=== PATIENT | female | born 1970 | race African-American/Black ===

== ENCOUNTER 2016-05-22 13:46 | Inpatient (IN) | payer MEDICARE, OTHER ==
[~2016-05-22] VITALS: Ht 152.4 cm; Wt 76.0 kg
[~2016-05-22 13:46] MED LIST: CARI350T21 PO; FERR324T11 PO; HYDR-2601 PO; LORA2TAB10 PO; MIRT30TA3 PO; OXCA300T50 PO; QUET50TA PO; TIZA4TAB3 PO
[2016-05-22 14:52] LABS: Basophils # (auto) 0.1 uL; Basophils % (auto) 0.8 % (0.0-2.0); Eosinophils # (auto) 0.2 uL; Eosinophils % (auto) 2.7 % (0.0-7.0); Hematocrit 39.3 % (36.0-46.0); Hemoglobin 12.9 g/dL (12.2-16.2); Lymphocytes # (auto) 3.3 uL; Lymphocytes % (auto) 46.7 % (10.0-50.0); Mean Corpuscular Hemoglobin 31.1 pg (28.0-32.0); Mean Corpuscular Hgb Conc. 32.9 g/dL (32.0-36.0); Mean Corpuscular Volume 94.5 fL (80.0-100.0); Mean Platelet Volume 7.8 fL (7.4-10.4); Monocytes # (auto) 0.6 uL; Monocytes % (auto) 9.1 % (0.0-12.0); Neutrophils # (auto) 2.9 uL; Neutrophils % (auto) 40.7 % (37.0-80.0); Platelet Count (auto) 400 10^3/uL (140-450); Red Cell Distribution Width 13.2 % (11.6-16.0)
[2016-05-22 15:16] LABS: Albumin 3.8 g/dL (3.4-5.0); BUN/Creatinine Ratio 13.7; Bilirubin, Total 0.3 mg/dL (0.2-1.0); Calcium 9.5 mg/dL (8.5-10.1); Total Protein 8.6 g/dL (6.4-8.2)
[2016-05-22 16:25] LABS: Amylase 52 U/L (25-115)
[2016-05-22 18:18] LABS: Urine Bilirubin Negative (Negative); Urine Blood Negative /uL (Negative); Urine Color Yellow (Yellow); Urine Glucose Normal (Normal); Urine Ketone Negative (Negative); Urine Nitrite Negative (Negative); Urine RBC <1 /hpf (0 - 4); Urine Squamous Epithelial Cell FEW /hpf (<5); Urine Urobilinogen Normal (Negative); Urine pH 6.5 (5.0-8.0)
[2016-05-22] MEDS ORDERED: SODIUM CHLORIDE 0.9% 1,000 ML IVB ONE (18:19)
[2016-05-22] MEDS ORDERED: ONDANSETRON HCL 4 MG/2 ML VIAL IV ONE (18:30)
[2016-05-22] MEDS ORDERED: HYDROmorphone HCL 2 MG/ML VL IV ONE (18:45)
[2016-05-22 19:26] LABS: Partial Thromboplastin Time 27.8 sec (22.64-33.71); Prothrombin Time 12.1 sec (9.37-12.3)
[2016-05-22 19:28] LABS: INR 1.17 (0.9-1.15)
[2016-05-22] MEDS ORDERED: metroNIDAZOLE 500MG/100ML 100 ML IV ONE (20:30)
[2016-05-22] MEDS ORDERED: cefTRIAXone 1GM/50ML D5W 50 ML IV ONE (20:30)
[2016-05-22] MEDS: ONDANSETRON HCL 4 MG/2 ML VIAL IV PRN (21:53)
[2016-05-22] MEDS: HYDROmorphone HCL 2 MG/ML VL IV PRN (21:53)
[2016-05-22 22:00] VITALS: BP 112/77
[2016-05-22] MEDS: SODIUM CHLORIDE 0.9% 1,000 ML IV SCH (22:52)
[2016-05-22] MEDS ORDERED: ALPR2TAB2 PO (23:28)
[2016-05-22] MEDS: MIRTAZAPINE 30 MG TAB PO SCH (23:33)
[2016-05-22] MEDS: QUEtiapine FUMARATE 100 MG TAB PO SCH (23:59)
[2016-05-22] MEDS: CARISOPRODOL 350 MG TAB PO SCH (23:59)
[2016-05-23] MEDS: ONDANSETRON HCL 4 MG/2 ML VIAL IV PRN ×5 (03:27→21:15)
[2016-05-23] MEDS: HYDROmorphone HCL 2 MG/ML VL IV PRN ×5 (03:27→21:14)
[2016-05-23] MEDS: SODIUM CHLORIDE 0.9% 1,000 ML IV SCH ×3 (04:40→23:58)
[2016-05-23 05:00] VITALS: BP 99/68
[2016-05-23 05:24] LABS: Basophils # (auto) 0 uL; Basophils % (auto) 0.4 % (0.0-2.0); Eosinophils # (auto) 0.2 uL; Eosinophils % (auto) 2.8 % (0.0-7.0); Hematocrit 36.5 % (36.0-46.0); Hemoglobin 11.9 g/dL (12.2-16.2); Lymphocytes # (auto) 3.3 uL; Lymphocytes % (auto) 45.3 % (10.0-50.0); Mean Corpuscular Hgb Conc. 32.6 g/dL (32.0-36.0); Mean Platelet Volume 7.8 fL (7.4-10.4); Monocytes # (auto) 0.8 uL; Monocytes % (auto) 11.4 % (0.0-12.0); Neutrophils # (auto) 2.9 uL; Neutrophils % (auto) 40.1 % (37.0-80.0); Platelet Count (auto) 346 10^3/uL (140-450); Red Cell Distribution Width 12.8 % (11.6-16.0); White Blood Cell 7.2 10^3/uL (4.4-10.8)
[2016-05-23] MEDS: ALPRAZolam 0.5 MG TAB PO SCH ×3 (05:36→22:24)
[2016-05-23] MEDS: CARISOPRODOL 350 MG TAB PO SCH ×3 (05:36→22:24)
[2016-05-23] MEDS: metroNIDAZOLE 500MG/100ML 100 ML IV SCH ×3 (05:36→22:25)
[2016-05-23 05:49] LABS: Albumin 3.4 g/dL (3.4-5.0); BUN/Creatinine Ratio 11.3; Bilirubin, Total 0.2 mg/dL (0.2-1.0); Calcium 8.7 mg/dL (8.5-10.1); Potassium 3.6 mmol/L (3.5-5.1); Total Protein 7.5 g/dL (6.4-8.2)
[2016-05-23] MEDS: cefTRIAXone 1GM/50ML D5W 50 ML IV SCH (07:46)
[2016-05-23 09:00] VITALS: BP 106/69
[2016-05-23] MEDS: QUEtiapine FUMARATE 100 MG TAB PO SCH ×2 (11:11→22:24)
[2016-05-23 12:50] VITALS: BP 105/70
[2016-05-23] MEDS: HYDROCORTISONE SOD SUCC 100 MG/2ML INJ VIAL IV SCH ×2 (13:18→22:23)
[2016-05-23] MEDS ORDERED: GOLYTELY 4L KIT PO ONE (14:45)
[2016-05-23 17:00] VITALS: BP 113/80
[2016-05-23 22:00] VITALS: BP 144/91
[2016-05-23] MEDS: MIRTAZAPINE 30 MG TAB PO SCH (22:24)
[2016-05-24] MEDS: HYDROmorphone HCL 2 MG/ML VL IV PRN ×3 (01:49→10:26)
[2016-05-24] MEDS: ONDANSETRON HCL 4 MG/2 ML VIAL IV PRN ×3 (01:49→10:26)
[2016-05-24 05:00] VITALS: BP 145/79
[2016-05-24] MEDS: HYDROCORTISONE SOD SUCC 100 MG/2ML INJ VIAL IV SCH ×2 (05:59→13:46)
[2016-05-24] MEDS: CARISOPRODOL 350 MG TAB PO SCH ×2 (06:00→13:46)
[2016-05-24] MEDS: ALPRAZolam 0.5 MG TAB PO SCH ×2 (06:04→13:46)
[2016-05-24] MEDS: metroNIDAZOLE 500MG/100ML 100 ML IV SCH ×2 (06:08→13:46)
[2016-05-24] MEDS ORDERED: NALOXONE HCL 0.4 MG/ML VIAL ONE (08:05)
[2016-05-24] MEDS ORDERED: diphenhdrAMINE HCL 50 MG/1 ML VL ONE (08:05)
[2016-05-24] MEDS ORDERED: FLUMAZENIL 0.1 MG/ML INJ 10ML MDV IV ONE (08:05)
[2016-05-24] MEDS ORDERED: SODIUM CHLORIDE LOCK 10 ML ONE (08:05)
[2016-05-24] MEDS ORDERED: fentaNYL CITRATE 100 MCG/2 ML VL ONE (08:31)
[2016-05-24] MEDS ORDERED: MIDAZOLAM HCL 5 MG/ML-1ML VIAL ONE (08:31)
[2016-05-24 08:52] VITALS: BP_SYST 106; BP_SYST 147; BP_DIAS 55; BP_DIAS 77
[2016-05-24] MEDS: MIDAZOLAM HCL 5 MG/ML-1ML VIAL ONE ×4 (09:05→09:16)
[2016-05-24] MEDS: fentaNYL CITRATE 100 MCG/2 ML VL ONE ×3 (09:05→09:13)
[2016-05-24] MEDS: QUEtiapine FUMARATE 100 MG TAB PO SCH (10:25)
[2016-05-24] MEDS: SODIUM CHLORIDE 0.9% 1,000 ML IV SCH ×2 (10:55→13:25)
[2016-05-24] MEDS: cefTRIAXone 1GM/50ML D5W 50 ML IV SCH (10:55)
[2016-05-24 13:00] VITALS: BP 136/93
[2016-05-24] MEDS ORDERED: HYDROcodone-ACET 5/325MG TAB PO ONE (13:30)
[2016-05-24 13:48] VITALS: BP 136/93
== END 2016-05-24 15:00 | disposition home or self-care (01) | DRG 392 ==
LOC: ER 13:52 → WEST WING 13:53
PROVIDERS: ADMIT Family Medicine; ATTEND Internal Medicine
PROC: 0DBB8ZX Excision of Ileum, Via Natural or Artificial Opening Endoscopic, Diagnostic (ICD-10-PCS; principal; 2016-05-24 09:05)
DX: K21.9 Gastro-esophageal reflux disease without esophagitis (principal); K86.1 Other chronic pancreatitis; K52.9 Noninfective gastroenteritis and colitis, unspecified; J45.909 Unspecified asthma, uncomplicated; E66.9 Obesity, unspecified; F10.10 Alcohol abuse, uncomplicated; F17.210 Nicotine dependence, cigarettes, uncomplicated; D64.9 Anemia, unspecified; F32.9 Major depressive disorder, single episode, unspecified; F41.9 Anxiety disorder, unspecified; K64.8 Other hemorrhoids; K76.9 Liver disease, unspecified; Z82.3 Family history of stroke; Z82.49 Family history of ischemic heart disease and other diseases of the circulatory system; Z83.3 Family history of diabetes mellitus; Z88.1 Allergy status to other antibiotic agents; Z88.8 Allergy status to other drugs, medicaments and biological substances; Z79.899 Other long term (current) drug therapy; Z98.51 Tubal ligation status; Z98.890 Other specified postprocedural states; Z80.9 Family history of malignant neoplasm, unspecified; Z68.32 Body mass index [BMI] 32.0-32.9, adult
CPT/HCPCS: 36415; 71010; 74176; 80053; 81001; 82150; 83690; 83735; 84702; 85025; 85049; 85610; 85652; 85730; 86141; 87045; 87493; 87899; 94761; 96361; 96365; 96375; G0434; J0696; J2250; J2405; J3490

== ENCOUNTER → 2016-09-05 | Outpatient (CLI) | payer MEDICARE, OTHER ==
[~2016-09-05] MED LIST changes: +ALPR2TAB2 PO
[2016-09-05 08:12] LABS: Basophils # (auto) 0.1 uL; Basophils % (auto) 0.8 % (0.0-2.0); Eosinophils # (auto) 0.1 uL; Hematocrit 43.4 % (36.0-46.0); Hemoglobin 14.4 g/dL (12.2-16.2); Lymphocytes # (auto) 3.3 uL; Lymphocytes % (auto) 54.3 % (10.0-50.0); Mean Corpuscular Hemoglobin 30.5 pg (28.0-32.0); Mean Corpuscular Hgb Conc. 33.1 g/dL (32.0-36.0); Mean Platelet Volume 8.4 fL (7.4-10.4); Monocytes # (auto) 0.6 uL; Monocytes % (auto) 10.5 % (0.0-12.0); Neutrophils % (auto) 32.4 % (37.0-80.0); Platelet Count (auto) 297 10^3/uL (140-450); White Blood Cell 6.1 10^3/uL (4.4-10.8)
[2016-09-05 08:26] LABS: Albumin 3.9 g/dL (3.4-5.0); Alkaline Phosphatase 124 U/L (45-117); Amylase 46 U/L (25-115); Anion Gap 13 (5-15); Aspartate Aminotransferase 75 U/L (15-37); BUN/Creatinine Ratio 11.1; Bilirubin, Total 0.2 mg/dL (0.2-1.0); Blood Urea Nitrogen 10 mg/dL (7-18); Calcium 9.4 mg/dL (8.5-10.1); Carbon Dioxide 23 mmol/L (21-32); Chloride 104 mmol/L (98-107); Cholesterol 217 mg/dL (< 200); GFR African American 87 mL/min; GFR Non-African American 72 mL/min; Glucose 111 mg/dL (74-106); HDL Cholesterol 37 mg/dL (40-59); Potassium 3.7 mmol/L (3.5-5.1); Sodium 140 mmol/L (136-145); Total Protein 9.3 g/dL (6.4-8.2); Triglycerides 881 mg/dL (< 150)
[2016-09-05 08:27] LABS: Urine Bilirubin Negative (Negative); Urine Blood Negative /uL (Negative); Urine Color Yellow (Yellow); Urine Glucose Normal (Normal); Urine Hyaline Cast FEW /lpf (0 - 2); Urine Ketone Negative (Negative); Urine Nitrite Negative (Negative); Urine RBC <1 /hpf (0 - 4); Urine Squamous Epithelial Cell FEW /hpf (<5); Urine Urobilinogen Normal (Negative); Urine pH 5.5 (5.0-8.0)
== END | disposition home or self-care (01) ==
LOC: LAB 07:29
DX: K86.1 Other chronic pancreatitis (principal); M25.50 Pain in unspecified joint
CPT/HCPCS: 36415; 80053; 80061; 81001; 82150; 83690; 84443; 85025

== ENCOUNTER 2016-10-30 08:09 | Emergency (ER) | payer MEDICARE, OTHER ==
[~2016-10-30] VITALS: Ht 157.5 cm; Wt 73.5 kg
[~2016-10-30 08:09] MED LIST changes: +CARI-316 PO; -CARI350T21 PO
[2016-10-30] MEDS ORDERED: SODIUM CHLORIDE 0.9% 1,000 ML IV ONE (10:34)
[2016-10-30] MEDS ORDERED: PROMETHAZINE HCL 25 MG/ML 1ML IV PRN (10:45)
[2016-10-30] MEDS ORDERED: KETOROLAC TROMETH 30 MG/ML 1ML VIAL IV ONE (10:45)
[2016-10-30 11:03] LABS: Urine RBC None Seen /hpf (0 - 4)
[2016-10-30 11:10] LABS: Basophils # (auto) 0 uL; Basophils % (auto) 0.1 % (0.0-2.0); CONDITION Y; Eosinophils # (auto) 0.2 uL; Eosinophils % (auto) 2.2 % (0.0-7.0); Hematocrit 40.5 % (36.0-46.0); Hemoglobin 13.8 g/dL (12.2-16.2); Lymphocytes # (auto) 3.4 uL; Lymphocytes % (auto) 40.6 % (10.0-50.0); Mean Corpuscular Hemoglobin 31.5 pg (28.0-32.0); Mean Corpuscular Volume 92.6 fL (80.0-100.0); Mean Platelet Volume 9.9 fL (7.4-10.4); Monocytes # (auto) 0.9 uL; Monocytes % (auto) 10.7 % (0.0-12.0); Neutrophils # (auto) 3.9 uL; Neutrophils % (auto) 46.4 % (37.0-80.0); Platelet Count (auto) 261 10^3/uL (140-450); Red Cell Distribution Width 15.1 % (11.6-16.0); White Blood Cell 8.3 10^3/uL (4.4-10.8)
[2016-10-30 11:21] LABS: Urine Bilirubin Negative (Negative); Urine Blood Negative /uL (Negative); Urine Color Yellow (Yellow); Urine Glucose Normal (Normal); Urine Ketone Negative (Negative); Urine Mucus FEW (None Seen); Urine Nitrite Negative (Negative); Urine Squamous Epithelial Cell MOD /hpf (<5); Urine Urobilinogen Normal (Negative); Urine pH 5.5 (5.0-8.0)
[2016-10-30 11:31] LABS: Albumin 3.5 g/dL (3.4-5.0); Alkaline Phosphatase 80 U/L (45-117); Anion Gap 7 (5-15); BUN/Creatinine Ratio 9.5; Bilirubin, Total 0.3 mg/dL (0.2-1.0); Blood Urea Nitrogen 8 mg/dL (7-18); Calcium 9.1 mg/dL (8.5-10.1); Carbon Dioxide 25 mmol/L (21-32); Chloride 107 mmol/L (98-107); GFR African American 94 mL/min; GFR Non-African American 78 mL/min; Glucose 102 mg/dL (74-106); Magnesium 2.5 mg/dL (1.6-2.6); Potassium 4.4 mmol/L (3.5-5.1); Sodium 139 mmol/L (136-145); Total Protein 8.1 g/dL (6.4-8.2)
[2016-10-30 11:32] LABS: Aspartate Aminotransferase 44 U/L (15-37)
[2016-10-30 12:16] VITALS: BP 102/76
== END 2016-10-30 14:28 | disposition home or self-care (01) ==
LOC: ER 08:09
DX: S30.0XXA Contusion of lower back and pelvis, initial encounter (principal); R10.12 Left upper quadrant pain; F17.210 Nicotine dependence, cigarettes, uncomplicated; K21.9 Gastro-esophageal reflux disease without esophagitis; J45.909 Unspecified asthma, uncomplicated; W19.XXXA Unspecified fall, initial encounter; Y93.89 Activity, other specified; Y99.8 Other external cause status; Y92.098 Other place in other non-institutional residence as the place of occurrence of the external cause; Z88.1 Allergy status to other antibiotic agents; Z88.6 Allergy status to analgesic agent; Z88.8 Allergy status to other drugs, medicaments and biological substances; Z91.041 Radiographic dye allergy status
CPT/HCPCS: 36415; 72100; 80053; 81001; 83690; 83735; 84484; 85025; 96361; 96374; 96375; 99285; J1885; J2550; J7030

== ENCOUNTER 2017-03-30 16:39 | Emergency (ER) | payer MEDICARE, OTHER ==
[~2017-03-30] VITALS: Ht 152.4 cm; Wt 69.4 kg
[~2017-03-30 16:39] MED LIST changes: -HYDR-2601 PO; +HYDR-531 PO
[2017-03-30] MEDS ORDERED: FENO2.5C PO (16:49)
[2017-03-30] MEDS ORDERED: PANT40TA2 PO (16:49)
[2017-03-30 17:20] LABS: Basophils # (auto) 0 uL; Basophils % (auto) 0.5 % (0.0-2.0); Eosinophils # (auto) 0.2 uL; Eosinophils % (auto) 2.2 % (0.0-7.0); Hematocrit 41.3 % (36.0-46.0); Hemoglobin 13.9 g/dL (12.2-16.2); Lymphocytes # (auto) 4.5 uL; Lymphocytes % (auto) 51.5 % (10.0-50.0); Mean Corpuscular Hgb Conc. 33.6 g/dL (32.0-36.0); Mean Corpuscular Volume 95.1 fL (80.0-100.0); Mean Platelet Volume 8.1 fL (6.9-10.8); Monocytes # (auto) 0.9 uL; Monocytes % (auto) 10.4 % (0.0-12.0); Neutrophils # (auto) 3.1 uL; Neutrophils % (auto) 35.4 % (37.0-80.0); Nucleated Red Blood Cells % 0.2 %; Platelet Count (auto) 247 10^3/uL (140-450); White Blood Cell 8.8 10^3/uL (4.4-10.8)
[2017-03-30 17:43] LABS: Albumin 3.6 g/dL (3.4-5.0); BUN/Creatinine Ratio 12.2; Bilirubin, Total 0.3 mg/dL (0.2-1.0); Calcium 8.9 mg/dL (8.5-10.1); Potassium 3.8 mmol/L (3.5-5.1); Total Protein 8.5 g/dL (6.4-8.2)
[2017-03-30 18:11] LABS: Urine Bilirubin Negative (Negative); Urine Blood Negative /uL (Negative); Urine Color Yellow (Yellow); Urine Glucose Normal (Normal); Urine Ketone Negative (Negative); Urine Nitrite Negative (Negative); Urine RBC <1 /hpf (0 - 4); Urine Squamous Epithelial Cell FEW /hpf (<5); Urine Urobilinogen Normal (Negative); Urine pH 5.5 (5.0-8.0)
[2017-03-30] MEDS ORDERED: SODIUM CHLORIDE 0.9% 1,000 ML IV ONE (21:15)
[2017-03-30] MEDS ORDERED: ONDANSETRON HCL 4 MG/2 ML VIAL IV ONE (21:15)
[2017-03-30] MEDS ORDERED: MORPHINE SULF INJ 2 MG/ML SYRINGE 1ML IV ONE (21:15)
[2017-03-30 21:20] VITALS: BP 139/84
[2017-03-30] MEDS ORDERED: FAMOTIDINE (10MG/ML) 2ML VL IV ONE (22:30)
== END 2017-03-30 23:53 | disposition home or self-care (01) ==
LOC: ER 16:39
DX: K29.70 Gastritis, unspecified, without bleeding (principal); K86.1 Other chronic pancreatitis; J45.909 Unspecified asthma, uncomplicated; K21.9 Gastro-esophageal reflux disease without esophagitis; F17.210 Nicotine dependence, cigarettes, uncomplicated; Z98.51 Tubal ligation status
CPT/HCPCS: 36415; 74176; 80053; 81001; 81025; 82150; 83690; 85025; 96361; 96374; 96375; 99285; J2270; J2405; J3490; J7030

== ENCOUNTER 2017-06-09 12:06 | Emergency (ER) | payer MEDICARE, OTHER ==
[~2017-06-09] VITALS: Ht 154.9 cm; Wt 66.7 kg
[~2017-06-09 12:06] MED LIST changes: +FENO2.5C PO; -MIRT30TA3 PO; -OXCA300T50 PO; +PANT40TA2 PO; -TIZA4TAB3 PO
[2017-06-09 13:06] LABS: Basophils # (auto) 0.1 uL; Basophils % (auto) 0.9 % (0.0-2.0); Eosinophils # (auto) 0.2 uL; Eosinophils % (auto) 2.6 % (0.0-7.0); Hemoglobin 14.8 g/dL (12.2-16.2); Lymphocytes # (auto) 3.2 uL; Lymphocytes % (auto) 47.2 % (10.0-50.0); Mean Corpuscular Hemoglobin 31.5 pg (28.0-32.0); Mean Corpuscular Hgb Conc. 33.5 g/dL (32.0-36.0); Monocytes # (auto) 0.8 uL; Monocytes % (auto) 11.5 % (0.0-12.0); Neutrophils # (auto) 2.6 uL; Neutrophils % (auto) 37.8 % (37.0-80.0); Nucleated Red Blood Cells % 0.1 %; Platelet Count (auto) 291 10^3/uL (140-450); Red Blood Cells 4.69 10^6/uL (4.0-5.20); Red Cell Distribution Width 13.9 % (11.8-14.3); White Blood Cell 6.8 10^3/uL (4.4-10.8)
[2017-06-09 13:14] LABS: Urine Bacteria FEW /hpf (None Seen); Urine Blood Negative /uL (Negative); Urine Mucus FEW (None Seen); Urine WBC 7 /hpf (0 - 5)
[2017-06-09 13:24] LABS: Albumin 4.1 g/dL (3.4-5.0); BUN/Creatinine Ratio 9.5; Calcium 9.9 mg/dL (8.5-10.1); Potassium 4.1 mmol/L (3.5-5.1)
[2017-06-09 13:26] LABS: Bilirubin, Total 0.4 mg/dL (0.2-1.0); Total Protein 9.1 g/dL (6.4-8.2)
[2017-06-09] MEDS ORDERED: SODIUM CHLORIDE 0.9% 500 ML IVB ONE (14:19)
[2017-06-09] MEDS ORDERED: PANTOPRAZOLE 40 MG/10 ML VIAL IV STA (14:19)
[2017-06-09] MEDS ORDERED: KETOROLAC TROMETH 30 MG/ML 1ML VIAL IV ONE (15:15)
[2017-06-09] MEDS ORDERED: HYDROcodone-ACET 10/325MG TAB PO ONE (16:15)
[2017-06-09 16:30] VITALS: BP 134/89
== END 2017-06-09 16:21 | disposition home or self-care (01) ==
LOC: ER 12:06
DX: N39.0 Urinary tract infection, site not specified (principal); K27.9 Peptic ulcer, site unspecified, unspecified as acute or chronic, without hemorrhage or perforation; F17.210 Nicotine dependence, cigarettes, uncomplicated; K21.9 Gastro-esophageal reflux disease without esophagitis; J45.909 Unspecified asthma, uncomplicated; Z98.51 Tubal ligation status; Z87.19 Personal history of other diseases of the digestive system; Z88.1 Allergy status to other antibiotic agents; Z88.6 Allergy status to analgesic agent; Z88.8 Allergy status to other drugs, medicaments and biological substances
CPT/HCPCS: 36415; 76705; 80053; 81001; 83690; 85025; 94761; 96361; 96374; 96375; 99285; C9113; J1885; J7030

== ENCOUNTER 2018-07-15 12:11 | Inpatient (IN) | payer MEDICARE, MEDICAID, OTHER | END 2018-07-18 18:18 | disposition home or self-care (01) | LOC: TELE-CENTR 07-17 15:25 → CENTRAL 07-18 03:05 → ER 12:11 → TELE-CENTR 22:20 | DX: K85.90 Acute pancreatitis without necrosis or infection, unspecified (principal); N39.0 Urinary tract infection, site not specified; K86.1 Other chronic pancreatitis; K21.9 Gastro-esophageal reflux disease without esophagitis; G89.29 Other chronic pain; K80.20 Calculus of gallbladder without cholecystitis without obstruction ==

== ENCOUNTER 2018-12-18 10:41 | Emergency (ER) | payer MEDICARE, MEDICAID ==
[~2018-12-18] VITALS: Ht 152.4 cm; Wt 52.6 kg
[~2018-12-18 10:41] MED LIST changes: -CARI-316 PO; +CARI350T22 PO; -FENO2.5C PO; +PANC24002 PO; +QUET150T2 PO; -QUET50TA PO
[2018-12-18] MEDS ORDERED: SODIUM CHLORIDE 0.9% 1,000 ML IVB ONE (10:53)
[2018-12-18] MEDS ORDERED: ONDANSETRON HCL 4 MG/2 ML VIAL IV ONE (11:00)
[2018-12-18] MEDS ORDERED: FAMOTIDINE (10MG/ML) 2ML VL IV ONE (11:00)
[2018-12-18] MEDS ORDERED: HYDROmorphone HCL 2 MG/ML VL IV ONE (11:00)
[2018-12-18 11:20] LABS: Basophils # (auto) 0.1 uL; Basophils % (auto) 0.8 % (0.0-2.0); Eosinophils # (auto) 0.1 uL; Eosinophils % (auto) 1.4 % (0.0-7.0); Hematocrit 44.3 % (36.0-46.0); Hemoglobin 14.7 g/dL (12.2-16.2); Lymphocytes # (auto) 3.7 uL; Lymphocytes % (auto) 42.4 % (10.0-50.0); Mean Corpuscular Hemoglobin 30.9 pg (28.0-32.0); Mean Corpuscular Hgb Conc. 33.2 g/dL (32.0-36.0); Mean Corpuscular Volume 92.9 fL (80.0-100.0); Monocytes # (auto) 0.4 uL; Monocytes % (auto) 4.1 % (0.0-12.0); Neutrophils # (auto) 4.5 uL; Neutrophils % (auto) 51.3 % (37.0-80.0); Nucleated Red Blood Cells % 0.1 %; Platelet Count (auto) 226 10^3/uL (140-450); Red Blood Cells 4.76 10^6/uL (4.0-5.20); Red Cell Distribution Width 15.2 % (11.8-14.3); White Blood Cell 8.8 10^3/uL (4.4-10.8)
[2018-12-18 11:48] LABS: Calcium 9.5 mg/dL (8.5-10.1); Potassium 3.5 mmol/L (3.5-5.1)
[2018-12-18 11:50] LABS: Urine Bacteria FEW /hpf (None Seen); Urine Blood Negative /uL (Negative); Urine Specific Gravity 1.015 (1.001-1.035); Urine WBC 1 /hpf (0 - 5)
[2018-12-18 11:50] LABS: BUN/Creatinine Ratio 13.3; Bilirubin, Total 0.3 mg/dL (0.2-1.0); Total Protein 9.1 g/dL (6.4-8.2)
[2018-12-18 12:43] VITALS: BP 128/89
== END 2018-12-18 12:54 | disposition home or self-care (01) ==
LOC: ER 10:46
DX: R10.13 Epigastric pain (principal); R11.2 Nausea with vomiting, unspecified; R19.7 Diarrhea, unspecified; J45.909 Unspecified asthma, uncomplicated; K21.9 Gastro-esophageal reflux disease without esophagitis; F17.210 Nicotine dependence, cigarettes, uncomplicated; F12.10 Cannabis abuse, uncomplicated; Z98.51 Tubal ligation status; Z88.1 Allergy status to other antibiotic agents; Z88.6 Allergy status to analgesic agent; Z88.8 Allergy status to other drugs, medicaments and biological substances; Z79.899 Other long term (current) drug therapy
CPT/HCPCS: 36415; 80053; 81001; 83690; 85025; 94761; 96361; 96374; 96375; 99283; J1170; J2405; J3490

== ENCOUNTER 2019-02-01 08:15 | Inpatient (IN) | payer MEDICARE, MEDICAID ==
[~2019-02-01] VITALS: Ht 152.4 cm; Wt 63.1 kg
[2019-02-01 09:10] LABS: Basophils # (auto) 0 uL; Basophils % (auto) 0.5 % (0.0-2.0); Eosinophils # (auto) 0.3 uL; Hematocrit 39.5 % (36.0-46.0); Hemoglobin 13.2 g/dL (12.2-16.2); Lymphocytes # (auto) 2.2 uL; Lymphocytes % (auto) 29.1 % (10.0-50.0); Mean Corpuscular Hgb Conc. 33.5 g/dL (32.0-36.0); Mean Corpuscular Volume 95.5 fL (80.0-100.0); Monocytes # (auto) 0.5 uL; Monocytes % (auto) 6.1 % (0.0-12.0); Neutrophils # (auto) 4.7 uL; Neutrophils % (auto) 60.3 % (37.0-80.0); Nucleated Red Blood Cells % 0.1 %; Platelet Count (auto) 298 10^3/uL (140-450); Red Blood Cells 4.14 10^6/uL (4.0-5.20); Red Cell Distribution Width 13.4 % (11.8-14.3); White Blood Cell 7.7 10^3/uL (4.4-10.8)
[2019-02-01 09:14] LABS: Urine Bacteria FEW /hpf (None Seen); Urine Blood Negative /uL (Negative); Urine Mucus FEW (None Seen); Urine Specific Gravity 1.009 (1.001-1.035); Urine WBC 2 /hpf (0 - 5)
[2019-02-01 09:37] LABS: Albumin 3.9 g/dL (3.4-5.0); Calcium 9.8 mg/dL (8.5-10.1); Potassium 4.1 mmol/L (3.5-5.1)
[2019-02-01 09:46] LABS: BUN/Creatinine Ratio 16.7; Bilirubin, Total 0.3 mg/dL (0.2-1.0); Total Protein 8.5 g/dL (6.4-8.2)
[2019-02-01] MEDS ORDERED: SODIUM CHLORIDE 0.9% 1,000 ML IV ONE ×2 (09:59)
[2019-02-01] MEDS ORDERED: ONDANSETRON HCL 4 MG/2 ML VIAL IV ONE ×2 (10:00→14:00)
[2019-02-01] MEDS: NALBUPHINE HCL 10 MG/1ml INJECTION IV ONE ×2 (10:00→13:42)
[2019-02-01] MEDS ORDERED: cefTRIAXone 1GM/50ML D5W 50 ML IV ONE (12:45)
[2019-02-01] MEDS ORDERED: metroNIDAZOLE 500MG/100ML 100 ML IV ONE (12:45)
[2019-02-01] MEDS ORDERED: HYDROmorphone HCL 2 MG/ML VL IV ONE (14:00)
[2019-02-01] MEDS ORDERED: SODIUM CHLORIDE 0.9% 1,000 ML IV SCH (15:15)
[2019-02-01] MEDS ORDERED: NITROGLYCERIN 0.4 MG SL TAB SL PRN (15:15)
[2019-02-01 15:30] VITALS: BP 129/99
[2019-02-01 15:49] LABS: Amphetamine Screen, Urine NEGATIVE (NEGATIVE); Barbiturate Scree,Urine NEGATIVE (NEGATIVE); Benzodiazephine Screen, Urine NEGATIVE (NEGATIVE); Cannabinoid Screen, Urine NEGATIVE (NEGATIVE); Cocaine Screen, Urine NEGATIVE (NEGATIVE); Opiate Scree,Urine NEGATIVE (NEGATIVE); Phencyclidine Screen, Urine NEGATIVE (NEGATIVE)
[2019-02-01 16:43] VITALS: BP 129/99
[2019-02-01 17:00] VITALS: BP 145/76
[2019-02-01] MEDS: LACTATED RINGER'S 1,000 ML IV SCH ×2 (17:31→23:41)
[2019-02-01] MEDS: ONDANSETRON HCL 4 MG/2 ML VIAL IV PRN ×2 (18:06→22:09)
[2019-02-01] MEDS: HYDROmorphone HCL 2 MG/ML VL IV PRN ×2 (18:07→22:09)
--- NOTE | 2019-02-01 19:26 | NUR ---
Opening Shift Note Assumed care of patient, awake and alert x 4. No S/S of distress/SOB. Bed is in lowest position and locked. Call light within reach. Board updated. LR infusing at 150 ml/hr. Instructed on POC and to call for assist PRN, will continue to monitor for changes Q1hr and PRN.
--- NOTE | 2019-02-01 19:34 | NUR ---
RECEIVED FROM ED AROUND 4PM TODAY FOR ABD PAIN, DX WITH PANCREATITIS, PATIENT IS ALERT AND ORIENTED X 4, WORKS IN MEDICAL FIELD. SEEN BY DR Shakira KELLY ON PAIN MANAGEMENT. CONTINUITY OF CARE ENDORSED TO SPORT INTERN.
--- NOTE | 2019-02-01 20:19 | NUR ---
Paged MD Fuentes to notify him that patient would like to know if she can have her home medications continued: 1) Ativan 2 mg PO BID, 2) Seroquel 300 mg PO BID, 3) Soma 250 mg PO TID. Patient is also reporting pain 10 out of 10 and would like to know if Dilaudid can be increased. Patient's pain is not relieved with 0.25 mg IV.
[2019-02-01 22:00] VITALS: BP 128/75
[2019-02-01] MEDS: metroNIDAZOLE 500MG/100ML 100 ML IV SCH (22:09)
[2019-02-02] MEDS: HYDROmorphone HCL 2 MG/ML VL IV PRN ×5 (02:04→20:39)
[2019-02-02] MEDS: ONDANSETRON HCL 4 MG/2 ML VIAL IV PRN ×4 (02:04→20:39)
[2019-02-02 05:15] LABS: Basophils # (auto) 0 uL; Basophils % (auto) 0.6 % (0.0-2.0); Eosinophils # (auto) 0.2 uL; Eosinophils % (auto) 3.7 % (0.0-7.0); Hematocrit 36.8 % (36.0-46.0); Hemoglobin 12.9 g/dL (12.2-16.2); Lymphocytes # (auto) 2.5 uL; Lymphocytes % (auto) 40.8 % (10.0-50.0); Mean Corpuscular Hemoglobin 32.6 pg (28.0-32.0); Mean Corpuscular Hgb Conc. 34.9 g/dL (32.0-36.0); Mean Corpuscular Volume 93.4 fL (80.0-100.0); Monocytes # (auto) 0.5 uL; Monocytes % (auto) 7.8 % (0.0-12.0); Neutrophils # (auto) 2.9 uL; Neutrophils % (auto) 47.1 % (37.0-80.0); Nucleated Red Blood Cells % 0.2 %; Platelet Count (auto) 282 10^3/uL (140-450); Red Blood Cells 3.94 10^6/uL (4.0-5.20); Red Cell Distribution Width 13.4 % (11.8-14.3); White Blood Cell 6.2 10^3/uL (4.4-10.8)
[2019-02-02 05:31] LABS: Albumin 3.6 g/dL (3.4-5.0); BUN/Creatinine Ratio 9.9; Calcium 9.4 mg/dL (8.5-10.1); Potassium 3.8 mmol/L (3.5-5.1)
[2019-02-02 05:34] LABS: Bilirubin, Total 0.5 mg/dL (0.2-1.0); Total Protein 8.1 g/dL (6.4-8.2)
[2019-02-02 06:06] VITALS: BP 129/70
[2019-02-02] MEDS: metroNIDAZOLE 500MG/100ML 100 ML IV SCH ×3 (06:08→21:48)
[2019-02-02] MEDS: LACTATED RINGER'S 1,000 ML IV SCH ×3 (06:08→20:39)
[2019-02-02 09:00] VITALS: BP 140/92
[2019-02-02 10:29] LABS: Amylase 143 U/L (25-115)
[2019-02-02 10:38] LABS: Lipase 1464 U/L (73-393)
[2019-02-02 13:00] VITALS: BP 133/86
[2019-02-02 17:00] VITALS: BP 123/80
--- NOTE | 2019-02-02 21:06 | NUR ---
Paged MD Fuentes to notify him that patient would like to know if she can have her home medications continued: 1) Ativan 2 mg PO BID, 2) Seroquel 300 mg PO BID, 3) Soma 250 mg PO TID. .
--- NOTE | 2019-02-02 21:18 | NUR ---
Spoke to MD Fuentes: Orders: 1) Ativan 0.5 mg PO q 12 hrs PRN, 2) Soma 350 mg q 8hrs PRN, 3) Seroquel 300 mg PO BID. Orders, repeated, verified, and placed.
[2019-02-02] MEDS: LORazepam 0.5 MG TAB PO PRN (21:48)
[2019-02-02] MEDS: QUEtiapine FUMARATE 100 MG TAB PO SCH (21:48)
[2019-02-02] MEDS: CARISOPRODOL 350 MG TAB PO PRN (21:49)
[2019-02-02 22:00] VITALS: BP 123/85
[2019-02-03] MEDS: LACTATED RINGER'S 1,000 ML IV SCH ×2 (01:59→10:13)
[2019-02-03] MEDS: HYDROmorphone HCL 2 MG/ML VL IV PRN ×5 (03:06→19:46)
[2019-02-03] MEDS: ONDANSETRON HCL 4 MG/2 ML VIAL IV PRN ×5 (03:06→19:46)
[2019-02-03] MEDS: metroNIDAZOLE 500MG/100ML 100 ML IV SCH (05:14)
[2019-02-03 05:28] VITALS: BP 121/70
[2019-02-03 06:45] LABS: Basophils # (auto) 0 uL; Basophils % (auto) 0.7 % (0.0-2.0); Eosinophils # (auto) 0.3 uL; Eosinophils % (auto) 5.4 % (0.0-7.0); Hematocrit 33.1 % (36.0-46.0); Hemoglobin 11.4 g/dL (12.2-16.2); Lymphocytes # (auto) 2.4 uL; Lymphocytes % (auto) 47.2 % (10.0-50.0); Mean Corpuscular Hemoglobin 32.6 pg (28.0-32.0); Mean Corpuscular Hgb Conc. 34.5 g/dL (32.0-36.0); Mean Corpuscular Volume 94.5 fL (80.0-100.0); Monocytes # (auto) 0.4 uL; Monocytes % (auto) 7.1 % (0.0-12.0); Neutrophils % (auto) 39.6 % (37.0-80.0); Nucleated Red Blood Cells % 0.2 %; Platelet Count (auto) 228 10^3/uL (140-450); Red Blood Cells 3.51 10^6/uL (4.0-5.20); Red Cell Distribution Width 12.9 % (11.8-14.3)
[2019-02-03 06:55] LABS: Albumin 1.7 g/dL (3.4-5.0); Potassium 3.9 mmol/L (3.5-5.1)
[2019-02-03 07:00] LABS: BUN/Creatinine Ratio 14.8; Bilirubin, Total 0.4 mg/dL (0.2-1.0); Calcium 9.2 mg/dL (8.5-10.1); Total Protein 7.3 g/dL (6.4-8.2)
[2019-02-03] MEDS: CARISOPRODOL 350 MG TAB PO PRN ×2 (08:23→19:45)
[2019-02-03 08:49] LABS: Amylase 327 U/L (25-115)
[2019-02-03 09:00] VITALS: BP 121/79
[2019-02-03 09:01] LABS: Lipase 2825 U/L (73-393)
[2019-02-03] MEDS: LORazepam 0.5 MG TAB PO PRN (10:24)
[2019-02-03] MEDS: QUEtiapine FUMARATE 100 MG TAB PO SCH ×2 (10:24→22:00)
--- NOTE | 2019-02-03 12:30 | NUR ---
Estimated needs based on AJBW 49.5 kg-wt maintenance factors 4980-3059 kcal (25-27 kcal/kg) 40-50 g protein (0.8-1.0 g/kg) Addendum: 02/03/19 at [address] Amended: Links added.
[2019-02-03 13:00] VITALS: BP 117/73
[2019-02-03 17:00] VITALS: BP 130/90
--- NOTE | 2019-02-03 21:10 | NUR ---
PT UPSET THAT WAS ASKED TO LEAVE;CARE ENDORSED TO DARRELL .
--- NOTE | 2019-02-03 21:30 | NUR ---
Assumed care of patient. Patient is alert and oriented; currently on room air with no s/s of distress or SOB. Pain medication administered by previous nurse. Patient is ambulatory without the use of assistive devices at baseline and has been observed ambulating through unit without difficulty. Bed is in low locked position with side rails up x2. Patient encouraged to call for assistance when needed. Will continue to monitor for changes PRN.
--- NOTE | 2019-02-03 22:34 | NUR ---
ROUNDS Patient is out of room at this time. Destination not disclosed to RN prior to departure.
[2019-02-04] MEDS: HYDROmorphone HCL 2 MG/ML VL IV PRN ×6 (00:09→20:49)
--- NOTE | 2019-02-04 02:01 | NUR ---
Patient reports two episodes of loose stool. Will notify MD and continue to monitor.
[2019-02-04 06:02] VITALS: BP 103/72
[2019-02-04] MEDS: CARISOPRODOL 350 MG TAB PO PRN ×2 (06:28→19:22)
[2019-02-04 07:11] LABS: Basophils # (auto) 0 uL; Basophils % (auto) 0.7 % (0.0-2.0); Eosinophils # (auto) 0.4 uL; Eosinophils % (auto) 6.6 % (0.0-7.0); Hematocrit 35.3 % (36.0-46.0); Hemoglobin 11.7 g/dL (12.2-16.2); Lymphocytes # (auto) 2.6 uL; Lymphocytes % (auto) 47.3 % (10.0-50.0); Mean Corpuscular Hemoglobin 32.4 pg (28.0-32.0); Mean Corpuscular Hgb Conc. 33.1 g/dL (32.0-36.0); Mean Corpuscular Volume 97.6 fL (80.0-100.0); Monocytes # (auto) 0.5 uL; Monocytes % (auto) 9.7 % (0.0-12.0); Neutrophils % (auto) 35.7 % (37.0-80.0); Nucleated Red Blood Cells % 0.1 %; Platelet Count (auto) 246 10^3/uL (140-450); Red Blood Cells 3.61 10^6/uL (4.0-5.20); Red Cell Distribution Width 13.4 % (11.8-14.3); White Blood Cell 5.5 10^3/uL (4.4-10.8)
--- NOTE | 2019-02-04 07:25 | NUR ---
Opening Shift Note Assumed care of patient, awake and alert. No S/S of distress/SOB, pt. reports abdominal pain of 8/10, will medicate per MD orders. Respirations are even and unlabored on RA. Updated on POC and instructed to call for assistance as needed, pt. verbalized understanding. Bed locked in lowest position, side rails up x2, call light within reach. Will continue to monitor for changes Q1hr and PRN.
[2019-02-04 07:27] LABS: Albumin 2.9 g/dL (3.4-5.0); BUN/Creatinine Ratio 5.5; Potassium 3.6 mmol/L (3.5-5.1)
[2019-02-04 07:30] LABS: Bilirubin, Total 0.2 mg/dL (0.2-1.0)
[2019-02-04 08:47] VITALS: BP 106/79
[2019-02-04] MEDS: QUEtiapine FUMARATE 100 MG TAB PO SCH ×2 (08:48→20:49)
[2019-02-04 10:05] LABS: Amylase 82 U/L (25-115); Lipase 434 U/L (73-393)
[2019-02-04 13:24] VITALS: BP 101/69
[2019-02-04 16:59] VITALS: BP 122/86
[2019-02-04 17:12] VITALS: BP 128/86
[2019-02-04] MEDS: LORazepam 0.5 MG TAB PO PRN (19:22)
--- NOTE | 2019-02-04 19:30 | NUR ---
Opening Shift Note Assumed care of patient, awake and alert. No S/S of distress/SOB. Patient states that she is currently having 8/10 RUQ abdominal pain but did not request pain medication at this time. Instructed on POC and to call for assist PRN, will continue to monitor for changes Q1hr and PRN.
[2019-02-04 22:00] VITALS: BP 122/80
[2019-02-05] MEDS: HYDROmorphone HCL 2 MG/ML VL IV PRN ×6 (01:17→22:05)
[2019-02-05 04:48] VITALS: BP 118/73
[2019-02-05 06:47] LABS: Basophils # (auto) 0 uL; Basophils % (auto) 0.5 % (0.0-2.0); Eosinophils # (auto) 0.3 uL; Eosinophils % (auto) 6.9 % (0.0-7.0); Hemoglobin 12.9 g/dL (12.2-16.2); Lymphocytes # (auto) 1.9 uL; Lymphocytes % (auto) 41.5 % (10.0-50.0); Mean Corpuscular Hemoglobin 33.8 pg (28.0-32.0); Mean Corpuscular Hgb Conc. 34.7 g/dL (32.0-36.0); Mean Corpuscular Volume 97.2 fL (80.0-100.0); Monocytes # (auto) 0.3 uL; Monocytes % (auto) 7.1 % (0.0-12.0); Neutrophils # (auto) 2.1 uL; Platelet Count (auto) 268 10^3/uL (140-450); Red Blood Cells 3.81 10^6/uL (4.0-5.20); Red Cell Distribution Width 13.3 % (11.8-14.3); White Blood Cell 4.7 10^3/uL (4.4-10.8)
[2019-02-05 07:09] LABS: Albumin 3.1 g/dL (3.4-5.0); Calcium 8.7 mg/dL (8.5-10.1); Potassium 3.4 mmol/L (3.5-5.1)
[2019-02-05 07:12] LABS: BUN/Creatinine Ratio 4.5; Bilirubin, Total 0.1 mg/dL (0.2-1.0)
[2019-02-05 09:00] VITALS: BP 156/76
[2019-02-05] MEDS: QUEtiapine FUMARATE 100 MG TAB PO SCH ×2 (09:54→21:51)
[2019-02-05 12:44] VITALS: BP 109/72
[2019-02-05] MEDS: LORazepam 0.5 MG TAB PO PRN (15:19)
[2019-02-05] MEDS: CARISOPRODOL 350 MG TAB PO PRN (15:19)
[2019-02-05 16:21] VITALS: BP 117/73
--- NOTE | 2019-02-05 19:25 | NUR ---
Opening Shift Note Assumed care of patient, awake and alert. No S/S of distress/SOB but the patient c/o 8/10 abdominal pain. Instructed on POC and to call for assist PRN, will continue to monitor for changes Q1hr and PRN.
[2019-02-05 21:30] VITALS: BP 116/78
[2019-02-06] MEDS: HYDROmorphone HCL 2 MG/ML VL IV PRN ×6 (02:12→22:40)
[2019-02-06 08:58] VITALS: BP 142/83
--- NOTE | 2019-02-06 09:44 | NUR ---
PT AMBULATES OUT OF UNIT. PT SIGNED WAIVER. PT AWARE NOT TO BE AWAY MORE THAN 20 MINUTES. PT VERBALIZES UNDERSTANDING. PT EDUCATED ON RISKS OF BEING OFF UNIT.
[2019-02-06] MEDS: QUEtiapine FUMARATE 100 MG TAB PO SCH ×2 (10:21→22:40)
[2019-02-06 10:30] LABS: Basophils # (auto) 0 uL; Basophils % (auto) 0.7 % (0.0-2.0); Eosinophils # (auto) 0.4 uL; Eosinophils % (auto) 7.7 % (0.0-7.0); Hematocrit 36.9 % (36.0-46.0); Hemoglobin 12.1 g/dL (12.2-16.2); Lymphocytes # (auto) 2.1 uL; Lymphocytes % (auto) 41.9 % (10.0-50.0); Mean Corpuscular Hemoglobin 31.8 pg (28.0-32.0); Mean Corpuscular Hgb Conc. 32.9 g/dL (32.0-36.0); Mean Corpuscular Volume 96.8 fL (80.0-100.0); Monocytes # (auto) 0.4 uL; Monocytes % (auto) 8.1 % (0.0-12.0); Neutrophils # (auto) 2.1 uL; Neutrophils % (auto) 41.6 % (37.0-80.0); Nucleated Red Blood Cells % 0.1 %; Platelet Count (auto) 264 10^3/uL (140-450); Red Blood Cells 3.81 10^6/uL (4.0-5.20); Red Cell Distribution Width 13.2 % (11.8-14.3); White Blood Cell 5.1 10^3/uL (4.4-10.8)
[2019-02-06 10:46] LABS: Albumin 3.1 g/dL (3.4-5.0); Potassium 3.6 mmol/L (3.5-5.1)
[2019-02-06 10:53] LABS: Bilirubin, Total 0.1 mg/dL (0.2-1.0); Total Protein 7.2 g/dL (6.4-8.2)
[2019-02-06 13:00] VITALS: BP 121/74
--- NOTE | 2019-02-06 15:08 | NUR ---
Nutrition Follow-up Notes Wt.: 63.8 kg as of yesterday. Pt's not in her room when rounded this morning. Pt's no signs of distress noted by RN earlier, currently on Regular diet with fair PO intake aeb 60% ave. consumed meals (x6) in last 2.5 days. Noted pt's for active GI consult. Est. Needs AJBW 49.5 [id number] kcal (25-27 kcal/kg), 40-50 g protein (0.8-1.0 g/kg).Will continue to monitor pertinent labs and reassess nutrient need prn Labs: Cl 111 H, BUN 3 L, Tot fernando 0.1 L, AST 55 L, ALP 189 H, Alb 3.1 L Skin: Stefano scale 19, low risk, skin intact per journeyman molder. GI: Pt had 1 BM yesterday per journeyman molder. PES: Altered nutrition related lab values r/t current/chronic medical condition aeb hyperchloremia, elev. AST, mild hypoalbuminemia. Will continue to monitor PO intake, skin status, pertinent labs and weight trend. F/u in 3 to 5 days. Rec.: 1.) Continue close supervision during meals. 2.) If Albumin continues trending down, consider Prostat 1 pkt BID. 3.) If pt's PO intake remains inadequate (<75%), consider Ensure Enlive 1 carton BID. 4.) Refer pt to CDE/RD for further nutrition education and weight monitoring upon discharge. 5.) Continue current plan of care.
--- NOTE | 2019-02-06 15:15 | NUR ---
IV TO RFA#22 DC'D DUE TO LEAKING. NEW IV INSERTION TO RFA #22 FLUSHING WELL. MEDICATION ADMINISTERED PER EMAR. PT TOLERATED PROCEDURE WELL. CALL LIGHT WITHIN REACH.
[2019-02-06 17:06] VITALS: BP 133/92
--- NOTE | 2019-02-06 19:00 | NUR ---
Opening Shift Note Assumed care of patient, awake and alert. No S/S of distress/SOB or pain. Instructed on POC and to call for assist PRN, will continue to monitor for changes Q1hr and PRN.
[2019-02-06 22:00] VITALS: BP 138/79
[2019-02-06 23:42] VITALS: BP 138/79
[2019-02-07] MEDS: HYDROmorphone HCL 2 MG/ML VL IV PRN ×6 (02:47→23:24)
[2019-02-07 05:26] VITALS: BP 136/77
--- NOTE | 2019-02-07 07:20 | NUR ---
PT IN FOWLERS; AWAKE, ALERT, ORIENTEDx4 REPORTS ABDOMINAL PAIN CHRONIC THAT IMPROVES SLIGHTLY WITH MEDICATION ADMINISTRATION. IV PRESENT TO RFA#22. EFFORTLESS BREATHING ON ROOM AIR. BED LOCKED AND IN LOWEST POSITION, CALL LIGHT WITHIN REACH. WILL CONTINUE TO MONITOR.
[2019-02-07 09:00] VITALS: BP 139/84
[2019-02-07] MEDS: QUEtiapine FUMARATE 100 MG TAB PO SCH ×2 (10:58→21:31)
--- NOTE | 2019-02-07 11:59 | NUR ---
DR. REY PAGED AND MESSAGE LEFT REGARDING PT'S DISCHARGE STATUS PER REQUEST.
[2019-02-07 13:00] VITALS: BP 112/78
--- NOTE | 2019-02-07 13:00 | NUR ---
DR. REY IN CONTACT WITH CHARGE NURSE; PER MD WILL MAKE ROUNDS LATER TODAY. PT MADE AWARE.
[2019-02-07 17:00] VITALS: BP 136/83
--- NOTE | 2019-02-07 19:15 | NUR ---
Opening Shift Note Assumed care of patient, awake and alert. No S/S of distress/SOB or pain. Family is at the bedside. Safety measures in place bed in lowest position, side rails x2 up, and call light within reach. Instructed on POC and to call for assist PRN, will continue to monitor for changes Q1hr and PRN.
[2019-02-07] MEDS: CARISOPRODOL 350 MG TAB PO PRN (21:29)
[2019-02-07 21:37] VITALS: BP 158/90
[2019-02-08] MEDS: HYDROmorphone HCL 2 MG/ML VL IV PRN ×5 (03:24→18:42)
[2019-02-08 04:57] VITALS: BP 135/64
[2019-02-08] MEDS: LORazepam 0.5 MG TAB PO PRN (06:21)
[2019-02-08] MEDS: ONDANSETRON HCL 4 MG/2 ML VIAL IV PRN ×4 (07:31→18:42)
[2019-02-08 08:16] VITALS: BP 146/88
[2019-02-08] MEDS: QUEtiapine FUMARATE 100 MG TAB PO SCH (09:56)
[2019-02-08 11:03] VITALS: BP 146/88
--- NOTE | 2019-02-08 11:26 | NUR ---
assessment No post discharge needs identified. Addendum: 02/08/19 at 1256 by Kateryna BIANCHI Amended: Links added.
[2019-02-08 12:49] VITALS: BP 110/66
[2019-02-08 16:48] VITALS: BP 128/76
== END 2019-02-08 19:01 | disposition home or self-care (01) | DRG 440 ==
LOC: ER 08:15 → OVERFLOW 08:16 → CENTRAL 18:57
PROVIDERS: ADMIT Internal Medicine; ATTEND Internal Medicine
DX: K85.90 Acute pancreatitis without necrosis or infection, unspecified (principal); K86.1 Other chronic pancreatitis; K52.9 Noninfective gastroenteritis and colitis, unspecified; J45.909 Unspecified asthma, uncomplicated; K21.9 Gastro-esophageal reflux disease without esophagitis; D64.89 Other specified anemias; F41.9 Anxiety disorder, unspecified; D63.8 Anemia in other chronic diseases classified elsewhere; F17.210 Nicotine dependence, cigarettes, uncomplicated; Z81.8 Family history of other mental and behavioral disorders; Z83.3 Family history of diabetes mellitus; Z88.1 Allergy status to other antibiotic agents; Z91.041 Radiographic dye allergy status; Z88.5 Allergy status to narcotic agent; Z88.8 Allergy status to other drugs, medicaments and biological substances; Z91.018 Allergy to other foods; Z90.49 Acquired absence of other specified parts of digestive tract; Z98.51 Tubal ligation status
CPT/HCPCS: 36415; 71045; 74176; 80053; 80307; 81001; 82150; 83605; 83690; 85025; 87040; 96361; 96365; 96372; G0378; J0696; J2405; J3490

== ENCOUNTER → 2019-06-09 | Outpatient (CLI) | payer MEDICARE ==
[~2019-06-09] MED LIST changes: +ONDA-144 PO
[2019-06-09 11:40] LABS: Basophils # (auto) 0 uL; Basophils % (auto) 0.6 % (0.0-2.0); Eosinophils # (auto) 0.2 uL; Hematocrit 41.9 % (36.0-46.0); Hemoglobin 14.1 g/dL (12.2-16.2); Lymphocytes # (auto) 2.6 uL; Lymphocytes % (auto) 41.2 % (10.0-50.0); Mean Corpuscular Hemoglobin 30.7 pg (28.0-32.0); Mean Corpuscular Hgb Conc. 33.6 g/dL (32.0-36.0); Mean Corpuscular Volume 91.2 fL (80.0-100.0); Monocytes # (auto) 0.4 uL; Monocytes % (auto) 5.7 % (0.0-12.0); Neutrophils # (auto) 3.1 uL; Neutrophils % (auto) 49.5 % (37.0-80.0); Nucleated Red Blood Cells % 0.1 %; Platelet Count (auto) 279 10^3/uL (140-450); Red Blood Cells 4.59 10^6/uL (4.0-5.20); Red Cell Distribution Width 13.4 % (11.8-14.3); White Blood Cell 6.2 10^3/uL (4.4-10.8)
[2019-06-09 12:06] LABS: Leuteinizing Hormone 33.6 IU/L
[2019-06-09 12:07] LABS: Follicle Stimulating Hormone 79.69 IU/L (SEE BELOW)
== END | disposition home or self-care (01) ==
LOC: LAB 10:28
PROVIDERS: ATTEND Obstetrics & Gynecology
DX: N95.1 Menopausal and female climacteric states (principal); D64.9 Anemia, unspecified
CPT/HCPCS: 36415; 82670; 83001; 83002; 84403; 84443; 85025

== ENCOUNTER 2019-07-24 17:00 | Inpatient (IN) | payer MEDICARE, MEDICAID ==
[~2019-07-24] VITALS: Ht 152.4 cm; Wt 71.2 kg
[~2019-07-24 17:00] MED LIST changes: -ALPR2TAB2 PO; -PANC24002 PO
[2019-07-24] MEDS ORDERED: SODIUM CHLORIDE 0.9% 1,000 ML IVB ONE (17:41)
[2019-07-24] MEDS ORDERED: ONDANSETRON HCL 4 MG/2 ML VIAL IV ONE (17:45)
[2019-07-24 17:57] LABS: Basophils # (auto) 0.1 10 ^3/uL (0-0.2); Eosinophils # (auto) 0.4 10 ^3/uL (0-0.8); Eosinophils % (auto) 5.3 % (0.0-7.0); Hematocrit 40.4 % (36.0-46.0); Hemoglobin 13.8 g/dL (12.2-16.2); Lymphocytes % (auto) 42.2 % (10.0-50.0); Mean Corpuscular Hemoglobin 31.4 pg (28.0-32.0); Mean Corpuscular Hgb Conc. 34.1 g/dL (32.0-36.0); Monocytes # (auto) 0.5 10 ^3/uL (0-1.3); Monocytes % (auto) 6.5 % (0.0-12.0); Neutrophils # (auto) 3.2 10 ^3/uL (1.6-8.6); Nucleated Red Blood Cells % 0.1 %; Platelet Count (auto) 288 10^3/uL (140-450); Red Cell Distribution Width 14.3 % (11.8-14.3)
[2019-07-24 18:04] LABS: Urine Bacteria FEW /hpf (None Seen); Urine Blood Negative /uL (Negative); Urine WBC 2 /hpf (0 - 5)
[2019-07-24 18:08] LABS: Albumin 3.5 g/dL (3.4-5.0); Calcium 9.2 mg/dL (8.5-10.1); Potassium 3.9 mmol/L (3.5-5.1)
[2019-07-24 18:12] LABS: BUN/Creatinine Ratio 15.3; Bilirubin, Total 0.2 mg/dL (0.2-1.0); Total Protein 8.5 g/dL (6.4-8.2)
[2019-07-24] MEDS ORDERED: HYDROmorphone HCL 2 MG/ML VL IV ONE (19:00)
[2019-07-24] MEDS ORDERED: LORazepam 0.5 MG TAB PO PRN (20:45)
[2019-07-24] MEDS: SODIUM CHLORIDE 0.9% 1,000 ML IV SCH (21:03)
[2019-07-24] MEDS: HYDROcodone-ACET 10/325MG TAB PO PRN (21:11)
[2019-07-24] MEDS: CARISOPRODOL 350 MG TAB PO SCH (22:08)
[2019-07-24] MEDS: QUEtiapine FUMARATE 100 MG TAB PO SCH (22:08)
[2019-07-24] MEDS: FERROUS SULFATE 325 MG TAB PO SCH (22:08)
[2019-07-24 23:00] VITALS: BP 116/74
[2019-07-24 23:15] VITALS: BP 116/74
[2019-07-24] MEDS: HYDROmorphone HCL 2 MG/ML VL IV PRN (23:22)
[2019-07-25] VITALS (7 sets, daily range): BP systolic 94–115; BP diastolic 60–81
[2019-07-25] MEDS: ONDANSETRON HCL 4 MG/2 ML VIAL IV PRN ×2 (03:20→07:14)
[2019-07-25] MEDS: HYDROmorphone HCL 2 MG/ML VL IV PRN ×5 (03:20→22:35)
[2019-07-25] MEDS: SODIUM CHLORIDE 0.9% 1,000 ML IV SCH ×3 (04:45→20:45)
[2019-07-25 05:48] LABS: Hematocrit 36.5 % (36.0-46.0); Mean Corpuscular Volume 93.8 fL (80.0-100.0); Platelet Count (auto) 240 10^3/uL (140-450); Red Blood Cells 3.89 10^6/uL (4.0-5.20); Red Cell Distribution Width 14.7 % (11.8-14.3)
[2019-07-25 05:59] LABS: Band Neutrophils % (manual) 0; Basophils % (manual) 0 (0.0-2.0); Blast Cells 0; Myelocytes % 0; Promyelocytes % 0; Reactive Lymphocytes 0
[2019-07-25 06:07] LABS: Calcium 8.4 mg/dL (8.5-10.1); Potassium 3.8 mmol/L (3.5-5.1)
[2019-07-25 06:10] LABS: Albumin 2.9 g/dL (3.4-5.0); BUN/Creatinine Ratio 18.9
[2019-07-25 06:11] LABS: Eosinophils % (manual) 8 (0-7); Lymphocytes % (manual) 64 (10.0-50.0); Metamyelocytes % 1; Monocytes % (manual) 3 (0-12)
[2019-07-25 06:13] LABS: Bilirubin, Total 0.1 mg/dL (0.2-1.0); Total Protein 7.3 g/dL (6.4-8.2)
[2019-07-25] MEDS: CARISOPRODOL 350 MG TAB PO SCH ×3 (06:13→22:19)
[2019-07-25] MEDS ORDERED: PANCRELIPASE PO SCH (07:00)
--- NOTE | 2019-07-25 07:15 | NUR ---
Opening Shift Note Assumed care of patient, awake and alert. No S/S of distress/SOB. Instructed on POC and to call for assist PRN, will continue to monitor for changes Q1hr and PRN. Bed is set in lowest locked position with side rails up x 2 for safety and call light is within reach.
--- NOTE | 2019-07-25 07:50 | NUR ---
JOESPH DEL RIO states they want to leave the floor Against Medical Advice (AMA) to go outside and smoke. Patient encouraged to stay on floor and not smoke. Patient advised of the risks and benefits of leaving AMA. Patient verbalized understanding and signed required AMA form.
[2019-07-25] MEDS: PANTOPRAZOLE 40 MG/10 ML VIAL INJ IV SCH (09:56)
[2019-07-25] MEDS: QUEtiapine FUMARATE 100 MG TAB PO SCH ×2 (09:57→22:00)
[2019-07-25] MEDS: HYDROcodone-ACET 10/325MG TAB PO PRN ×2 (09:57→16:37)
[2019-07-25] MEDS: FERROUS SULFATE 325 MG TAB PO SCH ×2 (09:57→22:19)
[2019-07-25] MEDS: NICOTINE 21MG/24 HR TOPICAL PATCH TD SCH (11:00)
[2019-07-25] MEDS: PANCREATIC ENZYMES 4200 UNIT CAP PO SCH ×2 (11:30→17:00)
--- NOTE | 2019-07-25 13:29 | NUR ---
at bedside for GI consult Dr. Nahum MD updated pt on POC. Per MD, patient is to remain NPO until lipase lab is drawn in am.
--- NOTE | 2019-07-25 19:20 | NUR ---
PATIENT OUT TO SMOKE AMA PATIENT AWARE OF DANGERS AND RISK OF SMOKING AND CONSCIOUSLY CHOSE TO SMOKE DESPITE TEACHINGS.
--- NOTE | 2019-07-25 19:45 | NUR ---
Opening Shift Note Assumed care of patient, awake and alert. No S/S of distress/SOB or pain. Instructed on POC and to call for assist PRN, will continue to monitor for changes Q1hr and PRN. PATIENT JUST BACK FROM SMOKE OUTSIDE, TELEMETRY, AND IV RECONNECTED. PATIENT BACK IN BED, BED IN LOWEST POSITION, SIDE RALES UP X2, AND CALL LIGHT WITHIN REACH.
--- NOTE | 2019-07-25 22:35 | NUR ---
PATIENT REPORTING PAIN 8/10 PATIENT REQUESTING PAIN MEDICATION FOR PAIN 8/10, DILAUDID GIVEN IV WILL REASSESS PAIN LEVEL IN 30MIN.
--- NOTE | 2019-07-26 02:07 | NUR ---
IV insertion IV access obtained, via clean sterile technique by inserting 24 gauge catheter at RIGHT FOREARM after 1 attempt. IV secured properly. No trauma to site. Patient tolerated well. OTHER IV POSITIONAL AND PATIENT REQUESTED A NEW ONE, LEFT WRIST IV LEFT IN PLACE SECONDARY.
[2019-07-26] MEDS: ONDANSETRON HCL 4 MG/2 ML VIAL IV PRN (02:34)
[2019-07-26] MEDS: HYDROmorphone HCL 2 MG/ML VL IV PRN ×3 (02:34→12:42)
--- NOTE | 2019-07-26 02:35 | NUR ---
PATIENT REQUESTING PAIN MEDICATION PATIENT STATES PAIN LEVEL OF 7/10 ABDOMINAL PAIN ALONG WITH NAUSEA, DILAUDID AND ZOFRAN GIVEN IV WILL REASSESS FOR IMPROVEMENT IN 30MIN.
[2019-07-26 05:00] VITALS: BP 106/72
[2019-07-26] MEDS: CARISOPRODOL 350 MG TAB PO SCH ×2 (06:19→14:12)
[2019-07-26] MEDS: SODIUM CHLORIDE 0.9% 1,000 ML IV SCH ×2 (06:19→13:14)
[2019-07-26] MEDS: PANCREATIC ENZYMES 4200 UNIT CAP PO SCH ×2 (06:38→12:42)
--- NOTE | 2019-07-26 06:39 | NUR ---
PATIENT REQUESTING PAIN MEDICATION PATIENT REQUESTING PAIN MEDICATION STATING PAIN 8/10, DILAUDID GIVEN IV, WILL REASSESS IN 30 MIN.
[2019-07-26 08:02] VITALS: BP 117/77
[2019-07-26 08:16] LABS: Basophils # (auto) 0.1 10 ^3/uL (0-0.2); Basophils % (auto) 0.9 % (0.0-2.0); Eosinophils # (auto) 0.4 10 ^3/uL (0-0.8); Eosinophils % (auto) 5.7 % (0.0-7.0); Hematocrit 39.5 % (36.0-46.0); Lymphocytes # (auto) 3.1 10 ^3/uL (0.4-5.4); Lymphocytes % (auto) 47.3 % (10.0-50.0); Mean Corpuscular Hemoglobin 30.8 pg (28.0-32.0); Mean Corpuscular Hgb Conc. 33.1 g/dL (32.0-36.0); Mean Corpuscular Volume 93.1 fL (80.0-100.0); Monocytes # (auto) 0.5 10 ^3/uL (0-1.3); Monocytes % (auto) 6.9 % (0.0-12.0); Neutrophils # (auto) 2.6 10 ^3/uL (1.6-8.6); Neutrophils % (auto) 39.2 % (37.0-80.0); Nucleated Red Blood Cells % 0.2 %; Platelet Count (auto) 273 10^3/uL (140-450); Red Blood Cells 4.24 10^6/uL (4.0-5.20); Red Cell Distribution Width 14.3 % (11.8-14.3); White Blood Cell 6.6 10^3/uL (4.4-10.8)
[2019-07-26 08:38] LABS: Albumin 3.5 g/dL (3.4-5.0); Potassium 3.9 mmol/L (3.5-5.1)
[2019-07-26 08:42] LABS: BUN/Creatinine Ratio 7.7; Bilirubin, Total 0.3 mg/dL (0.2-1.0); Total Protein 8.5 g/dL (6.4-8.2)
[2019-07-26 09:08] VITALS: BP 117/77
[2019-07-26] MEDS: PANTOPRAZOLE 40 MG/10 ML VIAL INJ IV SCH (10:39)
[2019-07-26] MEDS: FERROUS SULFATE 325 MG TAB PO SCH (10:39)
[2019-07-26] MEDS: QUEtiapine FUMARATE 100 MG TAB PO SCH (10:39)
[2019-07-26] MEDS: HYDROcodone-ACET 10/325MG TAB PO PRN (10:40)
[2019-07-26] MEDS: NICOTINE 21MG/24 HR TOPICAL PATCH TD SCH (10:44)
[2019-07-26 13:00] VITALS: BP 124/76
--- NOTE | 2019-07-26 15:20 | NUR ---
MD at bedside Dr. Fuentes, updated pt on POC and plan for discharge.
[2019-07-26 15:46] VITALS: BP 124/76
--- NOTE | 2019-07-26 16:26 | NUR ---
Discharge instructions given as ordered. Encourage to follow up with PMD as instructed. All questions and concerns addressed. Patient verbalized understanding. IV removed with catheter intact, pressure dressing applied. Telemetry unit returned to ICU. Patient taken to vehicle via wheelchair with all personal belongings, accompanied by staff and family member. No distress noted at time of departure.
[2019-07-26 16:27] VITALS: BP 119/70
== END 2019-07-26 16:26 | disposition home or self-care (01) | DRG 439 ==
LOC: ER 17:00 → TELE 17:01 → TELE-WESTW 22:22
PROVIDERS: ADMIT Internal Medicine; ATTEND Internal Medicine
DX: K85.90 Acute pancreatitis without necrosis or infection, unspecified (principal); F11.20 Opioid dependence, uncomplicated; K21.9 Gastro-esophageal reflux disease without esophagitis; J45.909 Unspecified asthma, uncomplicated; F17.210 Nicotine dependence, cigarettes, uncomplicated; K86.1 Other chronic pancreatitis; Z81.8 Family history of other mental and behavioral disorders; Z83.3 Family history of diabetes mellitus; F41.9 Anxiety disorder, unspecified; Z88.5 Allergy status to narcotic agent; Z88.8 Allergy status to other drugs, medicaments and biological substances; Z88.1 Allergy status to other antibiotic agents; Z91.041 Radiographic dye allergy status
CPT/HCPCS: 36415; 74176; 80053; 81001; 82150; 83690; 83735; 85007; 85025; 85027; 87081; 96361; 96374; 96375; C9113; G0378; J2405

== ENCOUNTER 2019-10-29 16:44 | Inpatient (IN) | payer MEDICARE, MEDICAID ==
[~2019-10-29] VITALS: Ht 152.4 cm; Wt 73.0 kg
[2019-10-29] MEDS ORDERED: SODIUM CHLORIDE 0.9% 1,000 ML IV ONE ×3 (17:45)
[2019-10-29] MEDS ORDERED: PANTOPRAZOLE 40 MG/10 ML VIAL INJ IV ONE ×2 (18:00→19:45)
[2019-10-29] MEDS ORDERED: ONDANSETRON HCL 4 MG/2 ML VIAL IV ONE (18:00)
[2019-10-29 18:23] LABS: Basophils # (auto) 0.1 10 ^3/uL (0-0.2); Eosinophils # (auto) 0.3 10 ^3/uL (0-0.8); Eosinophils % (auto) 3.4 % (0.0-7.0); Hematocrit 45.6 % (36.0-46.0); Hemoglobin 15.3 g/dL (12.2-16.2); Lymphocytes % (auto) 43.1 % (10.0-50.0); Mean Corpuscular Hemoglobin 30.9 pg (28.0-32.0); Mean Corpuscular Hgb Conc. 33.5 g/dL (32.0-36.0); Mean Corpuscular Volume 92.1 fL (80.0-100.0); Monocytes # (auto) 0.6 10 ^3/uL (0-1.3); Neutrophils # (auto) 4.3 10 ^3/uL (1.6-8.6); Neutrophils % (auto) 46.5 % (37.0-80.0); Nucleated Red Blood Cells % 0.1 %; Platelet Count (auto) 312 10^3/uL (140-450); Red Blood Cells 4.95 10^6/uL (4.0-5.20); White Blood Cell 9.3 10^3/uL (4.4-10.8)
[2019-10-29 18:37] LABS: INR 1.03 (0.9-1.15)
[2019-10-29 18:40] LABS: Alanine Aminotransferase 41 U/L (13-56); Albumin 4.1 g/dL (3.4-5.0); Amylase 93 U/L (25-115); Anion Gap 7 (5-15); Aspartate Aminotransferase 31 U/L (15-37); BUN/Creatinine Ratio 18.1; Blood Urea Nitrogen 15 mg/dL (7-18); Calcium 9.6 mg/dL (8.5-10.1); Carbon Dioxide 21 mmol/L (21-32); Chloride 106 mmol/L (98-107); GFR African American 94 mL/min; GFR Non-African American 78 mL/min; Glucose 111 mg/dL (74-106); Lipase 403 U/L (73-393); Potassium 3.7 mmol/L (3.5-5.1); Sodium 134 mmol/L (136-145)
[2019-10-29 18:42] LABS: Alkaline Phosphatase 191 U/L (45-117); Bilirubin, Total 0.4 mg/dL (0.2-1.0); Total Protein 9.6 g/dL (6.4-8.2)
[2019-10-29 18:57] LABS: Cholesterol 211 mg/dL (< 200); HDL Cholesterol 59 mg/dL (40-59); LDL Cholesterol 111 mg/dL (< 100); Triglycerides 299 mg/dL (< 150)
[2019-10-29] MEDS ORDERED: HYDROmorphone HCL 2 MG/ML VL IV ONE (19:15)
[2019-10-29] MEDS ORDERED: MORPHINE SULF INJ 2 MG/ML SYRINGE 1ML IV PRN ×3 (19:45→20:15)
[2019-10-29] MEDS ORDERED: NITROGLYCERIN 0.4 MG SL TAB SL PRN (19:45)
[2019-10-29] MEDS ORDERED: DOCUSATE SOD 100 MG CAP PO PRN (19:45)
[2019-10-29] MEDS ORDERED: HYDROcodone-ACET 5/325MG TAB PO PRN ×2 (19:45→20:15)
[2019-10-29] MEDS ORDERED: ALUM & MAG HYDROX-SIMETH LIQ(MAALOX) 30 ML PO PRN (19:45)
[2019-10-29] MEDS ORDERED: LORazepam 0.5 MG TAB PO PRN (19:45)
[2019-10-29] MEDS ORDERED: LORazepam 2MG/ML-1ML VIAL IV PRN (20:00)
[2019-10-29] MEDS ORDERED: HYDROcodone-ACET 10/325MG TAB PO ONE (22:00)
[2019-10-29 23:44] LABS: Urine Bacteria FEW /hpf (None Seen); Urine Blood Negative /uL (Negative); Urine Specific Gravity 1.031 (1.001-1.035); Urine WBC 10 /hpf (0 - 5)
[2019-10-30] VITALS (8 sets, daily range): BP systolic 101–140; BP diastolic 52–79
[2019-10-30 00:01] LABS: Amphetamine Screen, Urine NEGATIVE (NEGATIVE); Barbiturate Scree,Urine NEGATIVE (NEGATIVE); Benzodiazephine Screen, Urine NEGATIVE (NEGATIVE); Cannabinoid Screen, Urine NEGATIVE (NEGATIVE); Cocaine Screen, Urine NEGATIVE (NEGATIVE); Opiate Scree,Urine POSITIVE (NEGATIVE); Phencyclidine Screen, Urine NEGATIVE (NEGATIVE)
[2019-10-30] MEDS ORDERED: cefTRIAXone 1GM/50ML D5W 50 ML IV ONE (00:30)
[2019-10-30] MEDS: D5W/LACTATED RINGERS 1,000 ML IV SCH ×2 (02:12→05:30)
[2019-10-30] MEDS: HYDROmorphone HCL 2 MG/ML VL IV PRN ×6 (02:13→22:00)
[2019-10-30] MEDS: ALBUTEROL SULF 2.5 MG/0.5ML(0.5%) NEB SOLN NEB SCH ×5 (02:17→19:18)
[2019-10-30] MEDS: IPRATROPIUM BROM 0.5 MG/2.5ML INH SOL NEB SCH ×5 (02:17→19:18)
--- NOTE | 2019-10-30 02:30 | NUR ---
Telemetry admit from ER ELIANEJOESPH admitted to Telemetry unit. NO SBAR received FROM ER NURSE. Patient oriented to Guy grewal RN, [facility] unit, 281 room, B bed, and unit policies regarding patient care and visiting hours. Patient now on continuous telemetry monitoring, tele box # 84 and telemetry reading on arrival to unit is SINUS RHYTHM. Patient placed on bedside oxygen, weighed by bedscale and encouraged to call if they need something. All questions and concerns addressed, patient verbalized understanding. Note: PATIENT BELONGING LIST COMPLETED IN PHYSICAL CHART, AND PT SIGNED AMA FOR SMOKING.
--- NOTE | 2019-10-30 04:25 | NUR ---
PAGED HOSPITALIST TO NOTIFY OF PATENT REQUESTING PAIN MEDICATION Q6 HOURS TO BE REDUCED IN TIME ADMINISTRATION AND A ALTERNATIVE TO SEROQUEL SINCE SHE IS npo. AWAITING CALL BACK.
[2019-10-30] MEDS ORDERED: CHOL20007 PO (05:07)
[2019-10-30] MEDS ORDERED: ALL300T PO (05:07)
[2019-10-30] MEDS ORDERED: PANC3000 PO (05:07)
--- NOTE | 2019-10-30 05:30 | NUR ---
SPOKE TO HOSPITALIST KLEBER AND NOTIFIED OF PATIENT REQUESTNG PAIN MEDCICATION, AND HAS NO RELIEF WITH DILAUDED AND REQUEST ALTERNATIVE TO SEROQUEL. NO NEW ORDERS GIVEN.
[2019-10-30] MEDS: CARISOPRODOL 350 MG TAB PO SCH ×3 (05:31→22:00)
[2019-10-30] MEDS: ONDANSETRON HCL 4 MG/2 ML VIAL IV PRN ×2 (05:59→18:26)
--- NOTE | 2019-10-30 05:59 | NUR ---
COMMUNICATED WITH DR REY, PATIENT HAS NO RELIEF WITH DILAUDED ORDER, AND NOT REQUESTING PAIN MEDICATION. DR REY, ORDERED MORPHINE 2 MG Q4 PRN. SPOKE TO PT AND PT ADVISED PATIENT IS ALLERGIC TO MORPHINE. PAGED KRISSY TO NOTIFY PT IS ALLERGIC TO MORPHINE, AWAITING CALL BACK.
[2019-10-30 06:29] LABS: Basophils # (auto) 0 10 ^3/uL (0-0.2); Basophils % (auto) 0.5 % (0.0-2.0); Eosinophils # (auto) 0.3 10 ^3/uL (0-0.8); Eosinophils % (auto) 3.2 % (0.0-7.0); Hemoglobin 13.3 g/dL (12.2-16.2); Lymphocytes # (auto) 3.2 10 ^3/uL (0.4-5.4); Lymphocytes % (auto) 34.9 % (10.0-50.0); Mean Corpuscular Hemoglobin 31.3 pg (28.0-32.0); Mean Corpuscular Hgb Conc. 33.2 g/dL (32.0-36.0); Mean Corpuscular Volume 94.1 fL (80.0-100.0); Monocytes # (auto) 0.7 10 ^3/uL (0-1.3); Monocytes % (auto) 8.1 % (0.0-12.0); Neutrophils # (auto) 4.9 10 ^3/uL (1.6-8.6); Neutrophils % (auto) 53.3 % (37.0-80.0); Nucleated Red Blood Cells % 0.1 %; Platelet Count (auto) 233 10^3/uL (140-450); Red Blood Cells 4.26 10^6/uL (4.0-5.20); Red Cell Distribution Width 13.9 % (11.8-14.3); White Blood Cell 9.3 10^3/uL (4.4-10.8)
[2019-10-30 06:39] LABS: INR 1.07 (0.9-1.15); Partial Thromboplastin Time 30.5 sec (23.64-32.05)
--- NOTE | 2019-10-30 06:43 | NUR ---
RT NOTE: PT REFUSED TX AT THIS TIME. NO SIGNS OF RESPIRATORY DISTRESS. LUNG SOUNDS CLEAR/DIMINISHED T/O. ON RA SPO2 99 HR 91 RR 14. PT AWARE I WILL RETURN FOR NEXT SCHEDULED TX. WILL CONTINUE TO MONITOR.
--- NOTE | 2019-10-30 06:50 | NUR ---
PAGED KRISSY TO NOTIFY PT IS ALLERGIC TO MORPHINE, AWAITING CALL BACK AND PATIENT IS REQUESTING IN DILAUDED INCREASE IN MG OR SHORTEN ADMINISTRATION TIMES.
--- NOTE | 2019-10-30 06:55 | NUR ---
PROVIDED REPORT TO DAY RN AND PATIENT IS RESTING IN BED WITH NO SIGNS OF DISTRESS OR SOB AT THIS TIME. ENDORSED TO DAY RN, PATIENT REQUESTING PAIN MEDICATION DILAUDID ADMINISTRATION TIMES REDUCED, OR MG INCREASED, AND AWAITING FOR DR REY TO CALL BACK.
[2019-10-30 06:58] LABS: Albumin 3.6 g/dL (3.4-5.0); BUN/Creatinine Ratio 17.9; Calcium 9.2 mg/dL (8.5-10.1); Magnesium 2.3 mg/dL (1.6-2.6); Potassium 3.9 mmol/L (3.5-5.1)
[2019-10-30 07:00] LABS: Bilirubin, Total 0.5 mg/dL (0.2-1.0); Phosphorus 3.2 mg/dL (2.5-4.90); Total Protein 8.2 g/dL (6.4-8.2)
--- NOTE | 2019-10-30 07:03 | NUR ---
LEFT MESSAGE TO DR REY TO NOTIFY DAY RN, IF HE WANTS TO PUT ORDERS IN FOR PATIENT PAIN MEDICATIONS, NOTIFIED DAY RN OF PATIENT REQUESTING PAIN MEDICATION.
[2019-10-30] MEDS: PANCREATIC ENZYMES 4200 UNIT CAP PO SCH ×3 (08:00→18:24)
--- NOTE | 2019-10-30 08:20 | NUR ---
Patient medicated as ordered for pain. Patient states dilaudid is only working for "10 minutes". Paged out to doctor already made. Patient states she has left multiple messages for Dr Fuentes. Patient breathing non labored, no s/s of distress noted at this time. Patient disconnected her IV fluids and noted walking out "to smoke". Patient instructed not to disconnect IV on herself and call for assistance. Patient noted walking out in no distress.
--- NOTE | 2019-10-30 09:17 | NUR ---
Patient back to room and requesting to speak to charge nurse at this time. Charge paged to notify
[2019-10-30] MEDS: ENOXAPARIN SOD 40 MG/0.4 ML SYRINGE SC SCH (10:00)
[2019-10-30] MEDS: PANTOPRAZOLE 40 MG/10 ML VIAL INJ IV SCH (10:07)
[2019-10-30] MEDS: cefTRIAXone 1GM/50ML D5W 50 ML IV SCH (10:08)
--- NOTE | 2019-10-30 10:27 | NUR ---
RT NOTE: PT REFUSED TX AGAIN. STATING SHE WAS NOT HERE FOR HER ASTHMA AND DID NOT WANT TXS, ESPECIALLY Q4 HRS. NO SIGNS OF DISTRESS NOTED. LUNG SOUNDS CLEAR T/O. ON RA SPO2 97 HR 104 RR16. WILL CONTINUE TO MONITOR.
[2019-10-30] MEDS ORDERED: ATORVASTATIN 20 MG TAB PO ONE (11:30)
[2019-10-30] MEDS ORDERED: HYDROmorphone HCL 2 MG/ML VL IV PRN (11:45)
[2019-10-30] MEDS: CHOLECALCIFEROL (VITD3) 1,000IU=25mCg TAB PO SCH (12:01)
[2019-10-30] MEDS: ALLOPURINOL 100 MG TAB PO SCH (12:01)
[2019-10-30] MEDS: LACTATED RINGER'S 1,000 ML IV SCH ×2 (12:10→18:40)
--- NOTE | 2019-10-30 13:28 | NUR ---
Patient just now drawn for type and screen after multiple pages, awaiting results and pRBC from blood bank. Cont care
--- NOTE | 2019-10-30 13:53 | NUR ---
RT NOTE: PT REFUSED TX AT THIS TIME. NO SIGNS OF RESPIRATORY DISTRESS NOTED. ON RA SPO2 96 HR 94 RR 16. PT AWARE THAT RESPIRATORY WILL RETURN FOR NEXT SCHEDULED TX. WILL CONTINUE TO MONITOR.
--- NOTE | 2019-10-30 19:18 | NUR ---
RT NOTE PT WAS SEEN BY RT FOR HHN TX. PT REFUSED TX STATING SHE IS NOT HERE FOR BREATHING PROBLEMS AND DOES NOT NEED TX. RT OFFERED TO RETURN LATER TO GIVE TX AND PT REFUSED AND REQUESTED RT NOT RETURN. HR 92, RR 16, BS CLEAR, POX 97% ON ROOM AIR. JES FERGUSON AND JES MUKHERJEE NOTIFIED. CONT ORDERED Addendum: 10/30/19 at 2106 by Mayuri Angel RT Amended: Links added.
--- NOTE | 2019-10-30 19:55 | NUR ---
RT NOTE SPOKE WITH HOSPITALIST DR PASCAL ABOUT PT REFUSAL OF TX. TELEPHONE ORDER TO CHANGE THE HHN TX TO PRN. ORDERS CARRIED OUT. CONT ORDERED Addendum: 10/30/19 at 2106 by Mayuri Angel RT Amended: Links added.
[2019-10-30] MEDS ORDERED: ALBUTEROL SULF 2.5 MG/0.5ML(0.5%) NEB SOLN NEB PRN (20:00)
[2019-10-30] MEDS ORDERED: IPRATROPIUM BROM 0.5 MG/2.5ML INH SOL NEB PRN (20:00)
[2019-10-30] MEDS: ATORVASTATIN 20 MG TAB PO SCH (22:01)
[2019-10-30] MEDS: QUEtiapine FUMARATE 100 MG TAB PO SCH (22:02)
[2019-10-31] MEDS: LACTATED RINGER'S 1,000 ML IV SCH ×3 (01:20→15:04)
[2019-10-31] MEDS: HYDROmorphone HCL 2 MG/ML VL IV PRN ×6 (04:44→21:33)
[2019-10-31 05:30] VITALS: BP 109/67
[2019-10-31] MEDS: CARISOPRODOL 350 MG TAB PO SCH ×3 (06:00→22:55)
[2019-10-31 07:30] VITALS: BP 108/64
[2019-10-31] MEDS: PANCREATIC ENZYMES 4200 UNIT CAP PO SCH ×4 (08:00→18:06)
--- NOTE | 2019-10-31 10:40 | NUR ---
Spoke to Dr Hugo. Aware of patient's status. New orders received for LR at 100ml/hr and clear liquid diet. Patient noted walking outside at this time.
--- NOTE | 2019-10-31 11:15 | NUR ---
Dr Donnelly in to see patient. Patient is not back from going outside. Overhead paged to return to room
--- NOTE | 2019-10-31 11:19 | NUR ---
Patient back to room from outside at this time, will medicate with ordered meds.
[2019-10-31] MEDS: PANTOPRAZOLE 40 MG/10 ML VIAL INJ IV SCH (11:51)
[2019-10-31] MEDS: cefTRIAXone 1GM/50ML D5W 50 ML IV SCH (11:51)
[2019-10-31] MEDS: ENOXAPARIN SOD 40 MG/0.4 ML SYRINGE SC SCH (11:52)
[2019-10-31] MEDS: CHOLECALCIFEROL (VITD3) 1,000IU=25mCg TAB PO SCH (11:52)
[2019-10-31] MEDS: ALLOPURINOL 100 MG TAB PO SCH (11:52)
[2019-10-31 12:30] VITALS: BP 106/72
[2019-10-31 17:27] VITALS: BP 119/69
--- NOTE | 2019-10-31 18:10 | NUR ---
Patient tolerating foods well. Denies n/v. Denies active bleeding. No distress noted. States "pain came back" and requesting "Dilaudid" Will medicate as ordered after 1819 she verbalized understanding
--- NOTE | 2019-10-31 19:05 | NUR ---
Patient care endorsed endorsed care to Liane barrera. Patient laying comfortably in bed. No acute distress or sob noted. Call light within reach.
--- NOTE | 2019-10-31 19:51 | NUR ---
RECEIVED PATIENT FROM DAY SHIFT RN. PATIENT RESTING IN BED. NO S/S OF DISTRESS NOTED. C/O PAIN @ 9/10 AFTER PAIN MEDICATION GIVEN EARLIER. REINFORCED SCHEDULE OF PAIN MANAGEMENT. WILL COME BACK FOR PAIN MEDICATION LATER WHEN THE TIME IS DUE AND PER PATIENT REQUESTS. POC INSTRUCTED AND ENCOURAGED PATIENT TO CALL FOR POOL MANAGER IF NEEDED. BED IN LOWEST POSITION WITH SIDE RAILS UP X 2. CALL [place] WITHIN REACH.. CONTINUE TO MONITOR FOR CHANGES Q1H AND PRN.
--- NOTE | 2019-10-31 21:34 | NUR ---
Respiratory note: ASSESSED PT FOR PRN TX , PT WAS AWAKE AND ALERT, NO RESP DISTRESS NOTED. HR 94, RR 18, SPO2 98% ON ROOM AIR. BS ARE CLEAR, NO INDICATION FOR TX AT THIS TIME. PT KNOWS TO HAVE RT PAGED IF TX IS NEEDED.
--- NOTE | 2019-10-31 21:35 | NUR ---
MEDICATED PATIENT FOR PAIN @ 10/10 ORDERED. CONTINUE TO MONITOR.
[2019-10-31 22:00] VITALS: BP 103/68
--- NOTE | 2019-10-31 22:15 | NUR ---
PATIENT OUT OF FLOOR.
--- NOTE | 2019-10-31 22:45 | NUR ---
PATIENT BACK TO FLOOR. NO S/S OF DISTRESS NOTED. CONTINUE TO MONITOR.
[2019-10-31] MEDS: QUEtiapine FUMARATE 100 MG TAB PO SCH (22:55)
[2019-10-31] MEDS: ATORVASTATIN 20 MG TAB PO SCH (22:55)
--- NOTE | 2019-10-31 23:32 | NUR ---
IV insertion IV access obtained, via clean sterile technique by inserting [24] gauge catheter at [RH] after [1] attempt(s). IV secured properly. No trauma to site. Patient tolerated well. IV INFILTRATED ON RFA AND removal IV DC'd with clean sterile technique, catheter fully intact. Pressure dressing applied to site. Patient tolerated well. NOTE:
[2019-11-01] MEDS: HYDROmorphone HCL 2 MG/ML VL IV PRN ×4 (00:38→11:57)
--- NOTE | 2019-11-01 00:40 | NUR ---
MEDICATED PATIENT FOR PAIN @ 10/10 ORDERED. CONTINUE TO MONITOR.
--- NOTE | 2019-11-01 01:15 | NUR ---
REASSESSED PAIN 09/11. CONTINUE TO MONITOR.
--- NOTE | 2019-11-01 01:50 | NUR ---
PATIENT C/O ANXIETY, HR UP TO 160S, VITALS STABLE, BP 122/75, RR 22, O2 SAT 97% ON RA, PUT PATIENT ON 2L/NC, O2 SAT 100%. MEDICATED PATIENT ORDERED AND INSTRUCTED PATIENT TO BREATH IN THROW NOSE AND OUT FROM MOUTH. AFTER A FEW MINUTES, HR DOWN TO 100S. CONTINUE TO MONITOR.
--- NOTE | 2019-11-01 02:36 | NUR ---
PATIENT SLEEPING. NO S/S OF DISTRESS NOTED. CONTINUE TO MONITOR.
--- NOTE | 2019-11-01 04:36 | NUR ---
MEDICATED PATIENT FOR PAIN @ 10/10 ORDERED. CONTINUE TO MONITOR.
[2019-11-01 05:00] VITALS: BP 102/73
[2019-11-01] MEDS: LACTATED RINGER'S 1,000 ML IV SCH ×2 (05:57→11:57)
[2019-11-01] MEDS: CARISOPRODOL 350 MG TAB PO SCH (05:57)
--- NOTE | 2019-11-01 07:30 | NUR ---
Opening Note Assumed patient care from NOC Rn. Patient currently sitting up in bed at this time, no signs of distress noted, respirations even and unlabored. Patient requesting pain medication for 8/10 pain, see EMAR.
[2019-11-01] MEDS: PANCREATIC ENZYMES 4200 UNIT CAP PO SCH ×2 (08:50→11:57)
[2019-11-01] MEDS: cefTRIAXone 1GM/50ML D5W 50 ML IV SCH (08:51)
[2019-11-01 09:00] VITALS: BP 109/76
[2019-11-01] MEDS: ENOXAPARIN SOD 40 MG/0.4 ML SYRINGE SC SCH (10:00)
[2019-11-01] MEDS: CHOLECALCIFEROL (VITD3) 1,000IU=25mCg TAB PO SCH (10:08)
[2019-11-01] MEDS: ALLOPURINOL 100 MG TAB PO SCH (10:08)
[2019-11-01] MEDS: PANTOPRAZOLE 40 MG/10 ML VIAL INJ IV SCH (10:09)
--- NOTE | 2019-11-01 10:30 | NUR ---
Respiratory note: PRN MEDNEB ASSESSMENT. PT FOUND ON ROOM AIR, HR-91, RR-18, SP02 96%. B/S ARE CLEAR. PT IS IN NO DISTRESS AT THIS TIME. NO TREATMENT INDICATED. INFORMED PT TO HAVE RT PAGED IF BECOMES SOB.
--- NOTE | 2019-11-01 12:05 | NUR ---
Respiratory note: PRN MEDNEB D'C. PT HAS NOT NEEDED ANY TREATMENT IN 36 HOURS.
--- NOTE | 2019-11-01 12:40 | NUR ---
Nutrition Assessment Notes please see attached link for complete assessment [employer] needs ABW 59 [id number] kcals (23-25 kcal/kgBW), Est Protein needs: 59-65 gms/day (1.0-1.1 gm/kgBW). Will continue to monitor and reassess prn. Addendum: 11/01/19 at [address] Amended: Links added.
[2019-11-01 13:00] VITALS: BP 119/82
--- NOTE | 2019-11-01 13:00 | NUR ---
at Station Dr. Donnelly at station, per MD, patient to be discharged for home today, per MD administer pain medication prior to discharge for pain management.
[2019-11-01] MEDS ORDERED: HYDROmorphone HCL 2 MG/ML VL IV PRN (13:45)
[2019-11-01 15:13] VITALS: BP 109/76
--- NOTE | 2019-11-01 15:50 | NUR ---
Discharge Discharge instructions given as ordered. Encourage to follow up with PMD as instructed. All questions and concerns addressed. Patient verbalized understanding. Medication reconciliation form completed and copy given to patient. IV removed with catheter intact, pressure dressing applied. Telemetry unit returned to ICU. Patient ambulated to vehicle with all personal belongings. No distress noted at time of departure.
== END 2019-11-01 15:50 | disposition home or self-care (01) | DRG 439 ==
LOC: ER 16:44 → TELE 16:45 → TELE-WESTW 10-30 02:26
PROVIDERS: ADMIT Hospitalist; ATTEND Family Medicine
DX: K85.90 Acute pancreatitis without necrosis or infection, unspecified (principal); N39.0 Urinary tract infection, site not specified; E87.1 Hypo-osmolality and hyponatremia; K86.1 Other chronic pancreatitis; K80.20 Calculus of gallbladder without cholecystitis without obstruction; K76.0 Fatty (change of) liver, not elsewhere classified; K70.10 Alcoholic hepatitis without ascites; J44.9 Chronic obstructive pulmonary disease, unspecified; E86.0 Dehydration; E78.00 Pure hypercholesterolemia, unspecified; R79.89 Other specified abnormal findings of blood chemistry; K21.9 Gastro-esophageal reflux disease without esophagitis; E78.1 Pure hyperglyceridemia; F41.9 Anxiety disorder, unspecified; F32.9 Major depressive disorder, single episode, unspecified; M10.9 Gout, unspecified; F17.210 Nicotine dependence, cigarettes, uncomplicated; Z88.1 Allergy status to other antibiotic agents; Z91.041 Radiographic dye allergy status; Z88.5 Allergy status to narcotic agent; Z88.8 Allergy status to other drugs, medicaments and biological substances; Z91.018 Allergy to other foods; Z71.6 Tobacco abuse counseling; Z98.51 Tubal ligation status; Z79.899 Other long term (current) drug therapy; Z87.440 Personal history of urinary (tract) infections; Z83.3 Family history of diabetes mellitus; Z81.8 Family history of other mental and behavioral disorders
CPT/HCPCS: 36415; 74176; 80053; 80061; 80307; 81001; 82150; 83036; 83690; 83735; 84100; 84484; 85025; 85610; 85730; 87040; 87086; 94640; 96374; C9113; G0378; J0696; J2405

== ENCOUNTER 2019-12-24 20:55 | Inpatient (IN) | payer MEDICARE, MEDICAID ==
[~2019-12-24] VITALS: Ht 152.4 cm; Wt 70.2 kg
[~2019-12-24 20:55] MED LIST changes: +ALL300T PO; +CHOL20007 PO; -LORA2TAB10 PO; +LORA2TAB12 PO; +PANC3000 PO
[2019-12-25 02:52] LABS: Basophils # (auto) 0.1 10 ^3/uL (0-0.2); Basophils % (auto) 0.6 % (0.0-2.0); Eosinophils # (auto) 0.1 10 ^3/uL (0-0.8); Eosinophils % (auto) 1.2 % (0.0-7.0); Hematocrit 45.3 % (36.0-46.0); Hemoglobin 14.7 g/dL (12.2-16.2); Lymphocytes # (auto) 3.3 10 ^3/uL (0.4-5.4); Lymphocytes % (auto) 29.7 % (10.0-50.0); Mean Corpuscular Hemoglobin 31.3 pg (28.0-32.0); Mean Corpuscular Hgb Conc. 32.5 g/dL (32.0-36.0); Mean Corpuscular Volume 96.3 fL (80.0-100.0); Monocytes # (auto) 0.9 10 ^3/uL (0-1.3); Monocytes % (auto) 8.4 % (0.0-12.0); Neutrophils # (auto) 6.7 10 ^3/uL (1.6-8.6); Neutrophils % (auto) 60.1 % (37.0-80.0); Nucleated Red Blood Cells % 0.1 %; Platelet Count (auto) 300 10^3/uL (140-450); Red Blood Cells 4.71 10^6/uL (4.0-5.20); Red Cell Distribution Width 14.4 % (11.8-14.3); White Blood Cell 11.1 10^3/uL (4.4-10.8)
[2019-12-25 03:11] LABS: Alanine Aminotransferase 62 U/L (13-56); Albumin 3.7 g/dL (3.4-5.0); Anion Gap 6 (5-15); Aspartate Aminotransferase 91 U/L (15-37); Blood Urea Nitrogen 10 mg/dL (7-18); Carbon Dioxide 22 mmol/L (21-32); Chloride 108 mmol/L (98-107); GFR African American 103 mL/min; GFR Non-African American 85 mL/min; Glucose 103 mg/dL (74-106); Potassium 3.8 mmol/L (3.5-5.1); Sodium 136 mmol/L (136-145)
[2019-12-25 03:13] LABS: Alkaline Phosphatase 238 U/L (45-117); Bilirubin, Total 0.5 mg/dL (0.2-1.0)
[2019-12-25] MEDS ORDERED: ACETAMINOPHEN 325 MG TAB PO ONE (04:00)
[2019-12-25] MEDS ORDERED: MORPHINE SULFATE 4 MG/ML SYR/VIAL IV ONE (05:45)
[2019-12-25] MEDS ORDERED: SODIUM CHLORIDE 0.9% 1,000 ML IV ONE (05:45)
[2019-12-25] MEDS ORDERED: ONDANSETRON HCL 4 MG/2 ML VIAL IV ONE ×2 (05:45→11:00)
[2019-12-25] MEDS ORDERED: HYDROmorphone HCL 2 MG/ML VL IV ONE ×2 (06:15→11:00)
[2019-12-25] MEDS ORDERED: SODIUM CHLORIDE 0.9% 1,000 ML IVB ONE (07:35)
[2019-12-25] MEDS ORDERED: METOCLOPRAMIDE HCL 5MG/ml INJ 2ml VIAL IV ONE (07:45)
[2019-12-25 10:25] LABS: Urine Bacteria NONE SEEN /hpf (None Seen); Urine Blood Negative /uL (Negative); Urine Mucus FEW (None Seen); Urine Specific Gravity 1.025 (1.001-1.035); Urine WBC 3 /hpf (0 - 5)
[2019-12-25] MEDS ORDERED: cefTRIAXone 1GM/50ML D5W 50 ML IV ONE (11:45)
[2019-12-25] MEDS ORDERED: SODIUM CHLORIDE 0.9% 1,000 ML IV SCH (13:00)
[2019-12-25] MEDS ORDERED: MORPHINE SULF INJ 2 MG/ML SYRINGE 1ML IV PRN (13:00)
[2019-12-25] MEDS ORDERED: NITROGLYCERIN 0.4 MG SL TAB SL PRN (13:15)
[2019-12-25] MEDS ORDERED: diphenhdrAMINE HCL 50 MG/1 ML VL IV ONE ×2 (13:30→14:30)
[2019-12-25] MEDS: ONDANSETRON HCL 4 MG/2 ML VIAL IV PRN (16:51)
[2019-12-25] MEDS: HYDROmorphone HCL 2 MG/ML VL IV PRN ×2 (16:51→21:15)
[2019-12-25] MEDS ORDERED: HYDR-531 PO (17:04)
[2019-12-25] MEDS ORDERED: QUET150T2 PO (17:04)
[2019-12-25 17:19] VITALS: BP 123/80
--- NOTE | 2019-12-25 19:00 | NUR ---
Opening Shift Note Assumed care of patient, awake and alert. No S/S of distress/SOB or pain. Instructed on POC and to call for assist PRN, will continue to monitor for changes Q1hr and PRN.
[2019-12-25 22:00] VITALS: BP 118/76
[2019-12-25] MEDS: metroNIDAZOLE 500MG/100ML 100 ML IV SCH (23:28)
[2019-12-26] MEDS: HYDROmorphone HCL 2 MG/ML VL IV PRN ×5 (01:15→17:27)
[2019-12-26 05:00] VITALS: BP 104/62
[2019-12-26] MEDS: metroNIDAZOLE 500MG/100ML 100 ML IV SCH ×3 (05:18→21:30)
[2019-12-26 09:00] VITALS: BP 101/68
[2019-12-26] MEDS: cefTRIAXone 1GM/50ML D5W 50 ML IV SCH (09:28)
[2019-12-26] MEDS: ONDANSETRON HCL 4 MG/2 ML VIAL IV PRN ×3 (09:29→17:28)
--- NOTE | 2019-12-26 12:15 | NUR ---
Architectural Design Professor Rounded Dr. Hugo rounded on patient.
[2019-12-26 13:00] VITALS: BP 104/75
[2019-12-26] MEDS: LACTATED RINGER'S 1,000 ML IV SCH ×2 (13:45→20:45)
--- NOTE | 2019-12-26 16:23 | NUR ---
Telephone order Received telephone order from Dr. Fuentes to resume patient's home medications. Orders will be entered in eMAR.
[2019-12-26 16:57] VITALS: BP 114/71
--- NOTE | 2019-12-26 19:30 | NUR ---
ASSUMED CARE, PT. RESTING WITH EYES CLOSED, NOT IN DISTRESS.
[2019-12-26] MEDS: FERROUS SULFATE 325 MG TAB PO SCH (21:30)
[2019-12-26] MEDS: CARISOPRODOL 350 MG TAB PO SCH (21:31)
[2019-12-26 22:00] VITALS: BP 127/74
[2019-12-26] MEDS: LORazepam 0.5 MG TAB PO SCH (23:21)
[2019-12-27] MEDS: LACTATED RINGER'S 1,000 ML IV SCH ×3 (02:25→22:10)
[2019-12-27] MEDS: HYDROmorphone HCL 2 MG/ML VL IV PRN ×5 (04:09→20:31)
[2019-12-27 05:00] VITALS: BP 123/79
[2019-12-27] MEDS: metroNIDAZOLE 500MG/100ML 100 ML IV SCH ×3 (05:30→21:43)
[2019-12-27] MEDS: CARISOPRODOL 350 MG TAB PO SCH ×3 (05:30→21:43)
[2019-12-27] MEDS: HYDROcodone-ACET 10/325MG TAB PO PRN (06:03)
[2019-12-27 07:33] LABS: Potassium 3.6 mmol/L (3.5-5.1)
[2019-12-27 07:41] LABS: Albumin 2.8 g/dL (3.4-5.0); BUN/Creatinine Ratio 12.1; Bilirubin, Total 0.8 mg/dL (0.2-1.0); Calcium 8.3 mg/dL (8.5-10.1); Total Protein 6.7 g/dL (6.4-8.2)
[2019-12-27] MEDS: ONDANSETRON HCL 4 MG/2 ML VIAL IV PRN ×3 (08:10→16:17)
[2019-12-27 09:28] VITALS: BP 120/85
[2019-12-27] MEDS: PANTOPRAZOLE 40 MG TAB PO SCH (09:55)
[2019-12-27] MEDS: FERROUS SULFATE 325 MG TAB PO SCH ×2 (09:55→21:44)
[2019-12-27] MEDS: CHOLECALCIFEROL (VITD3) 1,000UNIT=25mCg TAB PO SCH (09:55)
[2019-12-27] MEDS: cefTRIAXone 1GM/50ML D5W 50 ML IV SCH (09:55)
[2019-12-27] MEDS: LORazepam 0.5 MG TAB PO SCH ×2 (09:56→23:08)
[2019-12-27] MEDS: ALLOPURINOL 300 MG TAB PO SCH (09:56)
[2019-12-27] MEDS: PANCREATIC ENZYMES PO SCH (10:00)
--- NOTE | 2019-12-27 10:08 | NUR ---
Hospitalist Rounding Dr. Fuentes at bedside with patient.
[2019-12-27 12:36] VITALS: BP 125/86
--- NOTE | 2019-12-27 15:01 | NUR ---
Nutrition Assessment Notes Please refer to link for full assessment notes. Est [employer] needs: 1159-8373 kcals (20-23 kcal/kgBW) Est Protein needs: 53-66 gms/day (0.8-1.0 gm/kgBW) Will continue to monitor and reassess prn. Addendum: 12/27/19 at [address] Amended: Links added.
--- NOTE | 2019-12-27 15:36 | NUR ---
X-ray Dr. Fuentes informed of patient's x-ray results. Orders received and will be entered.
[2019-12-27 16:52] VITALS: BP 123/78
--- NOTE | 2019-12-27 19:20 | NUR ---
Opening Shift Note Received report from Ros ANDRE. Assumed care of patient, awake and alert. No S/S of distress/SOB or pain. Instructed on POC and to call for assist PRN, will continue to monitor for changes Q1hr and PRN.
[2019-12-27 22:32] VITALS: BP 115/72
[2019-12-28] MEDS: HYDROmorphone HCL 2 MG/ML VL IV PRN ×6 (01:00→21:37)
[2019-12-28] MEDS: HYDROcodone-ACET 10/325MG TAB PO PRN (02:51)
--- NOTE | 2019-12-28 02:51 | NUR ---
Patient called to request pain medication, brought [place] PO as it is the only pain medication that can be given. Patient ask RN if Dilaudid IV was given at 12mn, RN explained that Dilaudid was due at 0030 but it was given at 0100. Patient at the time was sleeping on prone position, so RN had woke up the patient to scan the ID band, fixed the IV tubing and gave the medication. The patient insisted that she didn't get it as she was sleeping and she should be waken up. RN did woken up the patient and gave the medication. Patient still stating she didn't get the medication.
[2019-12-28 05:00] VITALS: BP 131/76
--- NOTE | 2019-12-28 05:01 | NUR ---
Patient called for pain medication, Dilaudid IV given. RN noticed that the patient is not hooked to the IV fluid, so RN asked the patient who unhooked it. Patient states she has never been hooked to the fluids since 9PM. RN explained that she was hooked to the IV when the antibiotic started and replaced it with LR fluid after the antibiotic was done and at 0100 when Dilaudid IV was given she was still hooked on IV fluids. Patient insisted she is not hooked then the conversation somewhat heated. Patient even spoke to on the phone to let him verify that she is not hooked to IV, how can he know when he is on the phone, it's easy to say. RN is trying to look for AUTO OVERHAULER Nguyen to verify if patient is not hooked. Patient started to look for the AUTO OVERHAULER as well and wanted to speak with the charge nurse to file a complaint. Charge nurse in the meeting at the moment.
--- NOTE | 2019-12-28 05:15 | NUR ---
Found the PLOW AND BORING MACHINE TENDER, RN asked Nguyen in Tagalog if indeed patient is not hooked, Nguyen verified that she did not see the patient hooked to IV. Patient got upset because we spoke in our language, apologized for this. Now to the best of my knowledge, I stand by my position that patient is hooked to the IV fluid.
[2019-12-28] MEDS: CARISOPRODOL 350 MG TAB PO SCH ×3 (06:11→21:35)
[2019-12-28] MEDS: metroNIDAZOLE 500MG/100ML 100 ML IV SCH ×3 (06:11→21:35)
--- NOTE | 2019-12-28 07:25 | NUR ---
Care endorsed to Sima ANDRE.
--- NOTE | 2019-12-28 07:30 | NUR ---
Opening Shift Note Assumed care of patient, awake and alert. No S/S of distress/SOB or pain. Instructed on POC and to call for assist PRN, will continue to monitor for changes Q1hr and PRN. Bed is locked and in lowest position. Call light within reach.
[2019-12-28 08:00] VITALS: BP 128/77
[2019-12-28] MEDS: PANTOPRAZOLE 40 MG TAB PO SCH (09:17)
[2019-12-28] MEDS: FERROUS SULFATE 325 MG TAB PO SCH ×2 (09:17→21:35)
[2019-12-28] MEDS: CHOLECALCIFEROL (VITD3) 1,000UNIT=25mCg TAB PO SCH (09:17)
[2019-12-28] MEDS: LORazepam 0.5 MG TAB PO SCH ×2 (09:17→21:35)
[2019-12-28] MEDS: ALLOPURINOL 300 MG TAB PO SCH (09:18)
[2019-12-28] MEDS: LACTATED RINGER'S 1,000 ML IV SCH ×3 (09:18→13:13)
[2019-12-28] MEDS: cefTRIAXone 1GM/50ML D5W 50 ML IV SCH (09:18)
[2019-12-28] MEDS: PANCREATIC ENZYMES PO SCH (10:00)
[2019-12-28 12:36] VITALS: BP 120/77
[2019-12-28 17:00] VITALS: BP 125/74
--- NOTE | 2019-12-28 19:00 | NUR ---
Opening Shift Note Assumed care of patient, awake and alert. No S/S of distress/SOB or pain. Insructed on POC and to callfor assist PRN, will continue to monitor for changes Q1hr and PRN.
[2019-12-28 22:00] VITALS: BP 117/65
[2019-12-29 05:00] VITALS: BP 137/90
[2019-12-29] MEDS: HYDROmorphone HCL 2 MG/ML VL IV PRN ×4 (05:33→13:30)
[2019-12-29] MEDS: CARISOPRODOL 350 MG TAB PO SCH ×2 (05:37→15:07)
[2019-12-29] MEDS: metroNIDAZOLE 500MG/100ML 100 ML IV SCH ×2 (05:37→14:00)
[2019-12-29 08:00] VITALS: BP 123/85
[2019-12-29 09:00] VITALS: BP 123/85
[2019-12-29] MEDS: cefTRIAXone 1GM/50ML D5W 50 ML IV SCH (09:38)
[2019-12-29] MEDS: CHOLECALCIFEROL (VITD3) 1,000UNIT=25mCg TAB PO SCH (09:39)
[2019-12-29] MEDS: PANTOPRAZOLE 40 MG TAB PO SCH (09:39)
[2019-12-29] MEDS: FERROUS SULFATE 325 MG TAB PO SCH (09:39)
[2019-12-29] MEDS: ALLOPURINOL 300 MG TAB PO SCH (09:40)
[2019-12-29] MEDS: PANCREATIC ENZYMES PO SCH (09:40)
[2019-12-29] MEDS: LORazepam 0.5 MG TAB PO SCH (09:40)
--- NOTE | 2019-12-29 11:30 | NUR ---
Assumed care of patient resting in bed with blankets pulled over face. Patient is alert and orientated and able to turn self.Respirations are even and unlabored no S/S of distress noted. Patient instructed to call for assistance prn. Fall precautions in place bed is locked and in lowest position side rails up x2, call light with in reach.Will continue to monitor q1 hr and PRN.
[2019-12-29] MEDS: LACTATED RINGER'S 1,000 ML IV SCH (12:45)
[2019-12-29 13:00] VITALS: BP 127/84
--- NOTE | 2019-12-29 14:10 | NUR ---
assessment Patient is a 49 year old female who is alert and oriented. Patients cognitive abilities are intact. Prior to admission patient lived home with family and functioned independently. Patient informed me she is able to care for her own ADLs. Per patient she will return home to her prior living arrangements post discharge and family will transport her home. Patients PCP i Dr Fuentes. Patient informed me she has no need for DME or oxygen. Patient has no safety issues regarding returning home on discharge. Patient informed me he therapist moved out of the area. I have provided patient with a list of local therapist. Patient has no other post discharge needs identified. I informed patient she has a right to speak to a social research assistant regarding all care. I informed patient she has a right to participate in any and all discharge planning. Patient does not have a POA and advanced directive. I have offered patient information on POA and advanced directives. I informed the patient the advantages and benefits of having an Advanced Directive. Patient verbalized understanding and agreed to discharge plan. Addendum: 12/29/19 at 1413 by Kateryna BIANCHI Amended: Links added.
[2019-12-29] MEDS: HYDROcodone-ACET 10/325MG TAB PO PRN (15:12)
--- NOTE | 2019-12-29 15:34 | NUR ---
Nutrition Followup Notes Pt wt is 70.2 kg Pt was with RN when rounded this morning. Pt is now with a Soft diet, appetite is good aeb ave 88% PO intake per RN doc. Pt with no distress per RN doc Est Energy needs: 5343-0968 kcals (20-23 kcal/kgBW) Est Protein needs: 53-66 gms/day (0.8-1.0 gm/kgBW) Will continue to monitor and reassess prn. LABS: Ca 8.3 L, AST 65 H, ALT 69 H, Alk Phos 198 H, Alb 2.8 L GI: Pt with no BM today per RN doc. BS: 22 low risk. Refer to wound assessment report for full details. PES: 1) Increased nutrient needs r/t pt with no PO intake aeb pt is NPO 2) Altered nutrition related alb values r/t current medical condition aeb hypocalcemia, elev LFTs, mild hypoalbuminemia Comments Will continue to monitor PO status, skin status, pertinent labs and weight trends. Will f/u in 3-5 days. 1) Continue to carefully monitor pt NPO status 2) Gradually advance pt to oral diet when medically feasible and as tolerated 3) Continue current plan of care
[2019-12-29 17:00] VITALS: BP 147/86
--- NOTE | 2019-12-29 18:00 | NUR ---
PATIENT REFUSING TO SIGN DISCHARGE PAPERWORK PER PATIENT SHE DID NOT RECEIVE HER DILAUDID BEFORE BEING D/C PATIENT WAS EDUCATED THAT WE CAN NOT GIVE HER PAIN MEDICATION ONCE DISCHARGE ORDER WAS IN PLACE PATIENT CONTINUED TO REFUSE TO SIGN DISCHARGE PAPER WORK DATA BASE DESIGN ANALYST MADE AWARE OF SITUATION.
--- NOTE | 2019-12-29 18:02 | NUR ---
Discharge instructions given as ordered. Encourage to follow up with PMD as instructed. Patient refused education. Medication reconciliation form completed and copy given to patient. IV removed with catheter intact, pressure dressing applied. Telemetry unit returned to ICU. Patient refused assistance from staff and ambulated to elevator with steady gait and with all personal belongings. No distress noted at time of departure.
== END 2019-12-29 18:02 | disposition home or self-care (01) | DRG 439 ==
LOC: EDBD 20:55 → ER 20:55 → TELE 20:56 → TELE-WESTW 12-25 15:50
PROVIDERS: ADMIT Internal Medicine; ATTEND Internal Medicine
DX: K85.90 Acute pancreatitis without necrosis or infection, unspecified (principal); K80.51 Calculus of bile duct without cholangitis or cholecystitis with obstruction; K86.3 Pseudocyst of pancreas; F11.20 Opioid dependence, uncomplicated; F41.9 Anxiety disorder, unspecified; F17.210 Nicotine dependence, cigarettes, uncomplicated; J45.909 Unspecified asthma, uncomplicated; K83.8 Other specified diseases of biliary tract; K21.9 Gastro-esophageal reflux disease without esophagitis; M10.9 Gout, unspecified; R74.0 Nonspecific elevation of levels of transaminase and lactic acid dehydrogenase [LDH]; Z81.8 Family history of other mental and behavioral disorders; Z82.3 Family history of stroke; Z82.49 Family history of ischemic heart disease and other diseases of the circulatory system; Z83.3 Family history of diabetes mellitus; Z90.49 Acquired absence of other specified parts of digestive tract; Z98.51 Tubal ligation status; Z20.828 Contact with and (suspected) exposure to other viral communicable diseases; K86.1 Other chronic pancreatitis; S62.626A Displaced fracture of middle phalanx of right little finger, initial encounter for closed fracture
CPT/HCPCS: 36415; 73140; 74181; 76705; 80053; 80320; 81001; 83690; 83735; 84702; 85025; 87426; 87493; 93005; G0378; J0696; J2405; J3490

== ENCOUNTER 2020-02-01 16:27 | Inpatient (IN) | payer MEDICARE, MEDICAID ==
[~2020-02-01] VITALS: Ht 152.4 cm; Wt 68.8 kg
[2020-02-01] MEDS ORDERED: ONDANSETRON HCL 4 MG/2 ML VIAL IV ONE (16:45)
[2020-02-01] MEDS ORDERED: SODIUM CHLORIDE 0.9% 1,000 ML IV ONE ×2 (16:45)
[2020-02-01] MEDS ORDERED: KETOROLAC TROMETH 30 MG/ML 1ML VIAL IV ONE (16:45)
[2020-02-01] MEDS ORDERED: ONDANSETRON HCL 4 MG/2 ML VIAL IV PRN (17:45)
[2020-02-01] MEDS ORDERED: MORPHINE SULF INJ 2 MG/ML SYRINGE 1ML IV PRN (17:45)
[2020-02-01] MEDS ORDERED: HYDROmorphone HCL 2 MG/ML VL IV PRN (17:45)
[2020-02-01] MEDS ORDERED: HYDROcodone-ACET 10/325MG TAB PO PRN (17:45)
[2020-02-01] MEDS ORDERED: ALPRAZolam 0.5 MG TAB PO PRN (17:45)
[2020-02-01] MEDS ORDERED: NITROGLYCERIN 0.4 MG SL TAB SL PRN (17:45)
[2020-02-01 18:10] LABS: Basophils # (auto) 0.1 10 ^3/uL (0-0.2); Basophils % (auto) 0.8 % (0.0-2.0); Eosinophils # (auto) 0.4 10 ^3/uL (0-0.8); Eosinophils % (auto) 5.2 % (0.0-7.0); Hematocrit 39.3 % (36.0-46.0); Hemoglobin 13.3 g/dL (12.2-16.2); Lymphocytes # (auto) 3.1 10 ^3/uL (0.4-5.4); Lymphocytes % (auto) 44.3 % (10.0-50.0); Mean Corpuscular Hemoglobin 31.4 pg (28.0-32.0); Mean Corpuscular Hgb Conc. 33.9 g/dL (32.0-36.0); Mean Corpuscular Volume 92.4 fL (80.0-100.0); Monocytes # (auto) 0.6 10 ^3/uL (0-1.3); Neutrophils # (auto) 2.9 10 ^3/uL (1.6-8.6); Neutrophils % (auto) 41.7 % (37.0-80.0); Nucleated Red Blood Cells % 0.3 %; Platelet Count (auto) 274 10^3/uL (140-450); Red Blood Cells 4.25 10^6/uL (4.0-5.20); Red Cell Distribution Width 13.4 % (11.8-14.3)
[2020-02-01 18:24] LABS: INR 1.11 (0.9-1.15)
[2020-02-01 18:31] LABS: Alanine Aminotransferase 31 U/L (13-56); Albumin 3.3 g/dL (3.4-5.0); Anion Gap 3 (5-15); Aspartate Aminotransferase 21 U/L (15-37); BUN/Creatinine Ratio 13.8; Blood Urea Nitrogen 9 mg/dL (7-18); Calcium 9.4 mg/dL (8.5-10.1); Carbon Dioxide 27 mmol/L (21-32); Chloride 106 mmol/L (98-107); GFR African American 125 mL/min; GFR Non-African American 103 mL/min; Glucose 129 mg/dL (74-106); Lipase 243 U/L (73-393); Potassium 3.8 mmol/L (3.5-5.1); Sodium 136 mmol/L (136-145)
[2020-02-01] MEDS: SODIUM CHLORIDE 0.9% 1,000 ML IV SCH (18:34)
[2020-02-01 18:36] LABS: Alkaline Phosphatase 185 U/L (45-117); Bilirubin, Total 0.2 mg/dL (0.2-1.0); Total Protein 7.7 g/dL (6.4-8.2)
--- NOTE | 2020-02-01 20:05 | NUR ---
Telemetry admit from JOESPH SANCHEZ admitted to Telemetry unit after SBAR received. Patient oriented to Michelle grewal RN, unit, room, bed, and unit policies regarding patient care and visiting hours. Patient now on continuous telemetry monitoring, tele box # [id number] and telemetry reading on arrival to unit is SR84. Patient placed on bedside oxygen, weighed by bed scale and encouraged to call if they need something. All questions and concerns addressed, patient verbalized understanding. Note: Came per wheelchair awake alert oriented x 4, placed in the bed comfortably, vital signs checked.
[2020-02-01 20:09] VITALS: BP 121/66
[2020-02-01 21:00] VITALS: BP 113/67
--- NOTE | 2020-02-01 21:44 | NUR ---
Called Dr. Fuentes for pain med, with order of hydromorphone 0.5mg. every 4 hours as needed, and at [id number] called again the doctor for her home med, and said to continue all her home. med.
[2020-02-01 22:00] VITALS: BP 113/67
[2020-02-01] MEDS: HYDROmorphone HCL 2 MG/ML VL IV PRN (22:06)
[2020-02-01] MEDS ORDERED: ALBUAER3 IN (22:48)
--- NOTE | 2020-02-01 23:57 | NUR ---
Report given to Milan Coleman, to assume care.
[2020-02-02] MEDS ORDERED: QUEtiapine FUMARATE 100 MG TAB PO ONE
[2020-02-02] MEDS: CARISOPRODOL 350 MG TAB PO SCH ×4 (00:05→17:21)
--- NOTE | 2020-02-02 00:41 | NUR ---
Patient down stairs to smoke. AMA is in hard chart
[2020-02-02] MEDS: SODIUM CHLORIDE 0.9% 1,000 ML IV SCH ×3 (01:59→16:54)
[2020-02-02] MEDS: HYDROmorphone HCL 2 MG/ML VL IV PRN ×5 (02:14→20:18)
--- NOTE | 2020-02-02 03:26 | NUR ---
Dr. Alfredo Adamescalled with order for pain management consultation for Dr. Amie Xavier.
[2020-02-02 05:00] VITALS: BP 106/72
[2020-02-02] MEDS ORDERED: HYDROcodone-ACET 10/325MG TAB PO PRN (05:00)
--- NOTE | 2020-02-02 07:40 | NUR ---
Opening Note Received report from safety lamp keeper RN. Patient is awake, alert and oriented x4. No signs or symptoms of distress noted at this time. Patient is on room air, respirations even and unlabored. Patient complains of pain 10/10 and is requesting pain medications, will medicate per orders. Reviewed plan of care with patient, patient verbalized understanding. Bed in low and locked position, call light within reach. Will continue to monitor Q1 hour and PRN.
[2020-02-02 08:00] VITALS: BP 97/68
[2020-02-02] MEDS: PANCREATIC ENZYMES 4200 UNIT CAP PO SCH ×4 (08:00→17:21)
[2020-02-02] MEDS: PANTOPRAZOLE 40 MG/10 ML VIAL INJ IV SCH (10:00)
[2020-02-02] MEDS ORDERED: FERROUS SULFATE 325 MG TAB PO SCH (10:00)
[2020-02-02] MEDS: CHOLECALCIFEROL (VITD3) 2,000 UNIT CAP PO SCH ×2 (10:00→17:21)
[2020-02-02] MEDS: ALLOPURINOL 300 MG TAB PO SCH (10:23)
--- NOTE | 2020-02-02 11:30 | NUR ---
patient off unit to smoke
[2020-02-02 11:56] VITALS: BP 102/70
--- NOTE | 2020-02-02 12:05 | NUR ---
patient back to room
[2020-02-02] MEDS: LORazepam 0.5 MG TAB PO PRN ×2 (12:33→22:15)
--- NOTE | 2020-02-02 15:07 | NUR ---
Nutrition Assessment Notes Please refer to link for full assessment notes. Est Energy needs: 9182-1034 kcals (20-23 kcal/kgBW) Est Protein needs: 54-68 gms/day (0.8-1.0 gm/kgBW) Will continue to monitor and reassess prn. Addendum: 02/02/20 at [address] Amended: Links added.
[2020-02-02 16:42] VITALS: BP 124/82
--- NOTE | 2020-02-02 19:07 | NUR ---
Opening Shift Note Assumed care of patient after receiving report from JES Fofana. Patient is awake and alert with no S/S of distress/SOB, patients pain is 10/10, will medicate when appropriate. Call light within reach, bed in lowest locked position x2 side rails, HOB semi fowlers. Instructed on POC and to call for assist PRN, will continue to monitor for changes Q1hr and PRN.
--- NOTE | 2020-02-02 19:10 | NUR ---
Closing Note Report given to shift manager RN. No signs or symptoms of distress noted at this time.
--- NOTE | 2020-02-02 20:36 | NUR ---
Patient off unit Patient went off unit to talk to her son, patient educated on medication just being given and side effects of lowered BP and HR. Patient verbalized understanding and went down stairs. Patient educated to call when back in bed to be reconnected to fluids,
[2020-02-02 22:00] VITALS: BP 101/69
[2020-02-02] MEDS: QUEtiapine FUMARATE 100 MG TAB PO SCH (22:14)
[2020-02-03] MEDS: CARISOPRODOL 350 MG TAB PO SCH ×4 (00:05→18:00)
[2020-02-03] MEDS: SODIUM CHLORIDE 0.9% 1,000 ML IV SCH ×3 (01:53→17:39)
[2020-02-03] MEDS: HYDROmorphone HCL 2 MG/ML VL IV PRN ×5 (04:42→21:52)
[2020-02-03 05:01] VITALS: BP 111/78
[2020-02-03 08:05] LABS: Basophils # (auto) 0 10 ^3/uL (0-0.2); Basophils % (auto) 0.5 % (0.0-2.0); Eosinophils # (auto) 0.2 10 ^3/uL (0-0.8); Eosinophils % (auto) 3.1 % (0.0-7.0); Hematocrit 41.3 % (36.0-46.0); Hemoglobin 13.3 g/dL (12.2-16.2); Lymphocytes # (auto) 2.3 10 ^3/uL (0.4-5.4); Lymphocytes % (auto) 45.5 % (10.0-50.0); Mean Corpuscular Hemoglobin 30.7 pg (28.0-32.0); Mean Corpuscular Hgb Conc. 32.2 g/dL (32.0-36.0); Mean Corpuscular Volume 95.5 fL (80.0-100.0); Monocytes # (auto) 0.5 10 ^3/uL (0-1.3); Monocytes % (auto) 9.9 % (0.0-12.0); Neutrophils # (auto) 2.1 10 ^3/uL (1.6-8.6); Nucleated Red Blood Cells % 0.1 %; Platelet Count (auto) 187 10^3/uL (140-450); Red Blood Cells 4.33 10^6/uL (4.0-5.20); Red Cell Distribution Width 13.9 % (11.8-14.3); White Blood Cell 5.1 10^3/uL (4.4-10.8)
[2020-02-03 08:33] LABS: Albumin 3.2 g/dL (3.4-5.0); BUN/Creatinine Ratio 6.5; Bilirubin, Total 0.4 mg/dL (0.2-1.0); Calcium 9.1 mg/dL (8.5-10.1); Magnesium 2.5 mg/dL (1.6-2.6); Total Protein 7.3 g/dL (6.4-8.2)
[2020-02-03] MEDS: FERROUS SULFATE 325 MG TAB PO SCH (08:55)
[2020-02-03] MEDS: PANCREATIC ENZYMES 4200 UNIT CAP PO SCH ×3 (08:55→17:38)
[2020-02-03 09:00] VITALS: BP 103/68
[2020-02-03] MEDS: PANTOPRAZOLE 40 MG/10 ML VIAL INJ IV SCH (09:41)
[2020-02-03] MEDS: CHOLECALCIFEROL (VITD3) 1,000UNIT=25mCg TAB PO SCH (09:41)
[2020-02-03] MEDS: ALLOPURINOL 300 MG TAB PO SCH (10:38)
[2020-02-03 13:00] VITALS: BP 97/67
[2020-02-03 16:46] VITALS: BP 103/60
[2020-02-03] MEDS: QUEtiapine FUMARATE 100 MG TAB PO SCH (21:52)
[2020-02-03 23:12] VITALS: BP 132/90
[2020-02-04] MEDS: HYDROmorphone HCL 2 MG/ML VL IV PRN ×5 (02:09→18:30)
[2020-02-04] MEDS: SODIUM CHLORIDE 0.9% 1,000 ML IV SCH ×3 (02:14→17:45)
--- NOTE | 2020-02-04 05:05 | NUR ---
IV insertion IV access obtained, via clean sterile technique by inserting 22 gauge catheter at right forearm after 1 atempt. IV secured properly. No trauma to site. Patient tolerated well.
[2020-02-04 05:48] VITALS: BP 109/69
[2020-02-04] MEDS: CARISOPRODOL 350 MG TAB PO SCH ×4 (06:00→18:00)
--- NOTE | 2020-02-04 07:00 | NUR ---
OPENING SHIFT NOTE RECEIVED REPORT ON THE PATIENT. AWAKE LYING IN BED. PATIENT SHOWS NO SIGNS OF DISTRESS AT THIS TIME. DISCUSSED THE PLAN OF CARE WITH THE PATIENT. BED IN LOWEST POSITION, SIDE RAILS UP X2, AND THE CALL LIGHT IS WITHIN REACH.
[2020-02-04] MEDS: PANCREATIC ENZYMES 4200 UNIT CAP PO SCH ×3 (08:19→18:00)
[2020-02-04] MEDS: FERROUS SULFATE 325 MG TAB PO SCH (08:19)
--- NOTE | 2020-02-04 08:40 | NUR ---
DR Rosangela VALENCIA AT BEDSIDE. NEW ORDERS RECEIVED.
[2020-02-04 08:53] VITALS: BP 124/81
[2020-02-04] MEDS: ALLOPURINOL 300 MG TAB PO SCH ×2 (10:21→10:59)
[2020-02-04] MEDS: PANTOPRAZOLE 40 MG/10 ML VIAL INJ IV SCH (10:21)
[2020-02-04] MEDS: CHOLECALCIFEROL (VITD3) 1,000UNIT=25mCg TAB PO SCH ×2 (10:21→10:58)
[2020-02-04 13:04] VITALS: BP 121/77
--- NOTE | 2020-02-04 16:07 | NUR ---
Nutrition Followup Notes Pt wt is 68.8 kg. Pt was not on the floor when rounded this morning. Pt was with a Full liquid diet appetite was good aeb 75% PO intake x2 meals per RN doc. Noted pt diet was upgraded to a Mechanical Soft diet later today. Noted per RN notes pt is feeling better with less pain. Est Energy needs: 6105-4573 kcals (20-23 kcal/kgBW) Est Protein needs: 54-68 gms/day (0.8-1.0 gm/kgBW) Will continue to monitor and reassess prn. LABS: aLB 3.2 l, GI: Pt had 1 BM on 02/03 per RN doc BS: 22 low risk. Refer to wound assessment report for full details. PES: Increased nutrient needs r/t pt with a restricted diet aeb pt with a clear liquid diet, abdominal pain Comments Will continue to monitor PO status, skin status, pertinent labs and weight trends. Will f/u in 2-3 days. 1) Continue to carefully monitor pt PO intake to meet at least 75% of meals 2) Gradually advance pt to oral diet when medically feasible and as tolerated 3) Continue current plan of care
[2020-02-04 16:54] VITALS: BP 123/62
[2020-02-04 17:03] VITALS: BP 123/62
== END 2020-02-04 18:59 | disposition home or self-care (01) | DRG 439 ==
LOC: ER 16:27 → TELE-WESTW 16:28 → ER 19:32
PROVIDERS: ADMIT Nurse Practitioner; ATTEND Internal Medicine
DX: K86.1 Other chronic pancreatitis (principal); F11.20 Opioid dependence, uncomplicated; F31.9 Bipolar disorder, unspecified; F41.9 Anxiety disorder, unspecified; F10.20 Alcohol dependence, uncomplicated; F17.210 Nicotine dependence, cigarettes, uncomplicated; Y90.9 Presence of alcohol in blood, level not specified; J45.909 Unspecified asthma, uncomplicated; Z81.8 Family history of other mental and behavioral disorders; Z82.49 Family history of ischemic heart disease and other diseases of the circulatory system; Z83.3 Family history of diabetes mellitus; Z79.899 Other long term (current) drug therapy; Z79.01 Long term (current) use of anticoagulants; Z88.1 Allergy status to other antibiotic agents; Z91.041 Radiographic dye allergy status; Z88.5 Allergy status to narcotic agent; Z91.018 Allergy to other foods; Z91.09 Other allergy status, other than to drugs and biological substances; Z88.8 Allergy status to other drugs, medicaments and biological substances; Z98.891 History of uterine scar from previous surgery; Z98.51 Tubal ligation status; Z80.9 Family history of malignant neoplasm, unspecified; Z82.3 Family history of stroke; Z84.89 Family history of other specified conditions
CPT/HCPCS: 36415; 71045; 74176; 80053; 83690; 83735; 84484; 85025; 85610; 85730; 87081; G0378; J2405

== ENCOUNTER 2020-03-05 09:53 | Emergency (ER) | payer MEDICARE, MEDICAID ==
[~2020-03-05] VITALS: Ht 152.4 cm; Wt 61.7 kg
[~2020-03-05 09:53] MED LIST changes: +ALBUAER3 IN; -CARI350T22 PO; -HYDR-531 PO
[2020-03-05 10:20] VITALS: BP 108/74
== END 2020-03-05 11:06 | disposition home or self-care (01) ==
LOC: ER 09:53
DX: R10.9 Unspecified abdominal pain (principal); J45.909 Unspecified asthma, uncomplicated; K21.9 Gastro-esophageal reflux disease without esophagitis; F17.210 Nicotine dependence, cigarettes, uncomplicated; Z48.01 Encounter for change or removal of surgical wound dressing; Z98.51 Tubal ligation status; Z88.1 Allergy status to other antibiotic agents; Z88.6 Allergy status to analgesic agent

== ENCOUNTER 2020-09-14 10:26 | Emergency (ER) | payer MEDICARE, MEDICAID ==
[~2020-09-14] VITALS: Ht 152.4 cm; Wt 63.5 kg
[2020-09-14] MEDS ORDERED: PANTOPRAZOLE 40 MG/10 ML VIAL INJ IV STA (10:35)
[2020-09-14] MEDS ORDERED: HYDROmorphone HCL 2 MG/ML VL IV ONE (10:45)
[2020-09-14] MEDS ORDERED: ONDANSETRON HCL 4 MG/2 ML VIAL IV ONE (10:45)
[2020-09-14 11:32] LABS: Basophils # (auto) 0 10 ^3/uL (0-0.2); Basophils % (auto) 0.5 % (0.0-2.0); Eosinophils # (auto) 0.1 10 ^3/uL (0-0.8); Eosinophils % (auto) 0.9 % (0.0-7.0); Hematocrit 43.4 % (36.0-46.0); Hemoglobin 14.4 g/dL (12.2-16.2); Lymphocytes # (auto) 2.5 10 ^3/uL (0.4-5.4); Lymphocytes % (auto) 36.1 % (10.0-50.0); Mean Corpuscular Hemoglobin 31.6 pg (28.0-32.0); Mean Corpuscular Hgb Conc. 33.3 g/dL (32.0-36.0); Mean Corpuscular Volume 95.1 fL (80.0-100.0); Monocytes # (auto) 0.4 10 ^3/uL (0-1.3); Monocytes % (auto) 5.6 % (0.0-12.0); Neutrophils % (auto) 56.9 % (37.0-80.0); Nucleated Red Blood Cells % 0.1 %; Platelet Count (auto) 307 10^3/uL (140-450); Red Blood Cells 4.57 10^6/uL (4.0-5.20); Red Cell Distribution Width 14.5 % (11.8-14.3)
[2020-09-14 11:37] LABS: Urine Bacteria FEW /hpf (None Seen); Urine Blood Negative /uL (Negative); Urine Specific Gravity 1.015 (1.001-1.035); Urine WBC 2 /hpf (0 - 5)
[2020-09-14 11:44] LABS: Calcium 9.7 mg/dL (8.5-10.1); Potassium 3.9 mmol/L (3.5-5.1)
[2020-09-14 11:48] LABS: BUN/Creatinine Ratio 8.8; Bilirubin, Total 0.3 mg/dL (0.2-1.0); Total Protein 9.1 g/dL (6.4-8.2)
[2020-09-14 14:30] VITALS: BP 117/71
== END 2020-09-14 15:17 | disposition home or self-care (01) ==
LOC: ER 10:26
DX: K86.1 Other chronic pancreatitis (principal); J45.909 Unspecified asthma, uncomplicated; K21.9 Gastro-esophageal reflux disease without esophagitis; F17.210 Nicotine dependence, cigarettes, uncomplicated; Z98.51 Tubal ligation status; Z88.1 Allergy status to other antibiotic agents; Z88.6 Allergy status to analgesic agent; Z88.8 Allergy status to other drugs, medicaments and biological substances
CPT/HCPCS: 36415; 74176; 80053; 81001; 83690; 85025; 96374; 96375; 99284; C9113; J1170; J2405

== ENCOUNTER 2020-11-21 22:31 | Emergency (ER) | payer MEDICARE, MEDICAID ==
[~2020-11-21] VITALS: Ht 165.1 cm; Wt 59.0 kg
[2020-11-21 22:54] VITALS: BP 106/60
[2020-11-22] MEDS ORDERED: KETOROLAC TROMETH 60MG/2ML VIAL IM ONE (02:00)
[2020-11-22] MEDS ORDERED: methylPREDNISolone SOD SUCC 125 MG/2 ML VL IM ONE (02:00)
== END 2020-11-22 03:12 | disposition home or self-care (01) ==
LOC: ER 22:31
DX: S93.502A Unspecified sprain of left great toe, initial encounter (principal); F17.210 Nicotine dependence, cigarettes, uncomplicated; F41.9 Anxiety disorder, unspecified; J45.909 Unspecified asthma, uncomplicated; K21.9 Gastro-esophageal reflux disease without esophagitis; Z79.899 Other long term (current) drug therapy; Z88.1 Allergy status to other antibiotic agents; Z91.018 Allergy to other foods; Z88.8 Allergy status to other drugs, medicaments and biological substances; Z88.5 Allergy status to narcotic agent; W22.03XA Walked into furniture, initial encounter; Y93.89 Activity, other specified; Y92.89 Other specified places as the place of occurrence of the external cause; Y99.8 Other external cause status
CPT/HCPCS: 73630; 96372; 99284; J1885; J2930

== ENCOUNTER 2021-07-22 02:52 | Inpatient (IN) | payer MEDICARE, MEDICAID ==
[~2021-07-22] VITALS: Ht 152.4 cm; Wt 71.2 kg
[2021-07-22 03:39] LABS: Urine Bacteria NONE SEEN /hpf (None Seen); Urine Blood Negative /uL (Negative); Urine Specific Gravity 1.025 (1.001-1.035); Urine WBC 9 /hpf (0 - 5)
[2021-07-22 03:55] LABS: Alcohol, Urine < 3.0 mg/dL (0-10); Amphetamine Screen, Urine NEGATIVE (NEGATIVE); Barbiturate Scree,Urine NEGATIVE (NEGATIVE); Benzodiazephine Screen, Urine NEGATIVE (NEGATIVE); Cannabinoid Screen, Urine POSITIVE (NEGATIVE); Cocaine Screen, Urine NEGATIVE (NEGATIVE); Opiate Scree,Urine POSITIVE (NEGATIVE); Phencyclidine Screen, Urine NEGATIVE (NEGATIVE)
[2021-07-22 04:23] LABS: Basophils # (auto) 0.1 10 ^3/uL (0-0.2); Basophils % (auto) 0.5 % (0.0-2.0); Eosinophils # (auto) 0.2 10 ^3/uL (0-0.8); Hematocrit 44.8 % (36.0-46.0); Hemoglobin 14.9 g/dL (12.2-16.2); Lymphocytes # (auto) 4.6 10 ^3/uL (0.4-5.4); Lymphocytes % (auto) 40.9 % (10.0-50.0); Mean Corpuscular Hemoglobin 31.3 pg (28.0-32.0); Mean Corpuscular Hgb Conc. 33.4 g/dL (32.0-36.0); Mean Corpuscular Volume 93.9 fL (80.0-100.0); Monocytes # (auto) 0.9 10 ^3/uL (0-1.3); Monocytes % (auto) 7.9 % (0.0-12.0); Neutrophils # (auto) 5.5 10 ^3/uL (1.6-8.6); Neutrophils % (auto) 48.7 % (37.0-80.0); Nucleated Red Blood Cells % 0.4 %; Red Blood Cells 4.77 10^6/uL (4.0-5.20); Red Cell Distribution Width 13.4 % (11.8-14.3); White Blood Cell 11.3 10^3/uL (4.4-10.8)
[2021-07-22 04:29] LABS: Calcium 10.1 mg/dL (8.5-10.1)
[2021-07-22 04:33] LABS: Albumin 3.8 g/dL (3.4-5.0); BUN/Creatinine Ratio 17.2
[2021-07-22 04:37] LABS: Bilirubin, Total 0.2 mg/dL (0.2-1.0)
[2021-07-22] MEDS ORDERED: fentaNYL CITRATE 100 MCG/2 ML VL IV ONE (06:30)
[2021-07-22] MEDS ORDERED: ONDANSETRON HCL 4 MG/2 ML VIAL IV ONE (06:30)
[2021-07-22] MEDS ORDERED: SODIUM CHLORIDE 0.9% 1,000 ML IV ONE (06:45)
[2021-07-22] MEDS ORDERED: SODIUM CHLORIDE 0.9% 500 ML IVB ONE (06:45)
[2021-07-22] MEDS ORDERED: METOCLOPRAMIDE HCL 5MG/ml INJ 2ml VIAL IV ONE ×2 (07:45→11:45)
[2021-07-22] MEDS ORDERED: HYDROmorphone HCL 2 MG/ML VL IV ONE ×2 (07:45→11:45)
[2021-07-22] MEDS ORDERED: IOHEXOL 300 MG/ML 100ML BOTTLE IJ ONE (08:11)
[2021-07-22] MEDS ORDERED: DOCUSATE SOD 100 MG CAP PO PRN ×2 (12:15→12:45)
[2021-07-22] MEDS ORDERED: HYDROcodone-ACET 5/325MG TAB PO PRN (12:15)
[2021-07-22] MEDS ORDERED: ACETAMINOPHEN 325 MG TAB PO PRN ×2 (12:15→12:45)
[2021-07-22] MEDS ORDERED: SODIUM CHLORIDE 0.9% 1,000 ML IV SCH (12:15)
[2021-07-22] MEDS ORDERED: ONDANSETRON HCL 4 MG/2 ML VIAL IV PRN ×2 (12:15→12:45)
[2021-07-22] MEDS ORDERED: METOCLOPRAMIDE HCL 5MG/ml INJ 2ml VIAL IV PRN (12:15)
[2021-07-22] MEDS ORDERED: MORPHINE SULFATE INJECTION 2 MG/ML SYRG IV PRN (12:45)
[2021-07-22] MEDS ORDERED: MORPHINE SULFATE 4 MG/ML SYR/VIAL IV PRN (12:45)
[2021-07-22] MEDS ORDERED: ALBUTEROL SULF 2.5 MG/0.5ML(0.5%) NEB SOLN NEB PRN (12:45)
[2021-07-22] MEDS ORDERED: NITROGLYCERIN 0.4 MG SL TAB SL PRN (12:45)
[2021-07-22 12:51] VITALS: BP 137/86
[2021-07-22] MEDS: SODIUM CHLORIDE 0.9% 1,000 ML IV SCH ×2 (12:57→21:00)
[2021-07-22] MEDS ORDERED: AZITHROMYCIN 500MG/ 250ML 250 ML IV ONE (13:30)
[2021-07-22 16:08] VITALS: BP 118/90
[2021-07-22] MEDS: HYDROmorphone HCL 2 MG/ML VL IV PRN ×2 (16:32→20:58)
[2021-07-22 17:00] VITALS: BP 118/90
[2021-07-22] MEDS ORDERED: ZINC220C8 PO (18:41)
[2021-07-22] MEDS ORDERED: TIZA2TAB4 PO (18:41)
[2021-07-22] MEDS ORDERED: LORA2TAB89 PO (18:41)
[2021-07-22] MEDS ORDERED: HYDR-4798 (18:41)
[2021-07-22] MEDS ORDERED: CARI350T23 PO (18:41)
[2021-07-22] MEDS ORDERED: OMEP-260 PO (18:41)
[2021-07-22] MEDS ORDERED: BIOT10009 PO (18:41)
[2021-07-22] MEDS ORDERED: IBUP800T26 PO (18:41)
[2021-07-22] MEDS ORDERED: [UNRECOGNIZED DRUG - CODE] PO (18:41)
[2021-07-22] MEDS: ASCORBIC ACID 500 MG TAB PO SCH (21:00)
[2021-07-22 21:39] VITALS: BP 125/86
[2021-07-23] MEDS: HYDROmorphone HCL 2 MG/ML VL IV PRN ×6 (00:53→21:39)
[2021-07-23] MEDS: SODIUM CHLORIDE 0.9% 1,000 ML IV SCH (04:14)
[2021-07-23 04:42] VITALS: BP 118/68
[2021-07-23 04:43] LABS: Basophils # (auto) 0.1 10 ^3/uL (0-0.2); Basophils % (auto) 0.9 % (0.0-2.0); Eosinophils # (auto) 0.4 10 ^3/uL (0-0.8); Eosinophils % (auto) 5.1 % (0.0-7.0); Hematocrit 34.6 % (36.0-46.0); Hemoglobin 11.7 g/dL (12.2-16.2); Lymphocytes # (auto) 3.5 10 ^3/uL (0.4-5.4); Lymphocytes % (auto) 47.3 % (10.0-50.0); Mean Corpuscular Hgb Conc. 33.9 g/dL (32.0-36.0); Mean Corpuscular Volume 94.5 fL (80.0-100.0); Monocytes # (auto) 0.8 10 ^3/uL (0-1.3); Monocytes % (auto) 10.5 % (0.0-12.0); Neutrophils # (auto) 2.7 10 ^3/uL (1.6-8.6); Neutrophils % (auto) 36.2 % (37.0-80.0); Nucleated Red Blood Cells % 0.3 %; Red Blood Cells 3.67 10^6/uL (4.0-5.20); Red Cell Distribution Width 13.2 % (11.8-14.3); White Blood Cell 7.4 10^3/uL (4.4-10.8)
[2021-07-23 05:01] LABS: BUN/Creatinine Ratio 15.3; Calcium 8.2 mg/dL (8.5-10.1); Potassium 4.1 mmol/L (3.5-5.1)
[2021-07-23 05:03] LABS: Bilirubin, Total 0.3 mg/dL (0.2-1.0); Total Protein 6.9 g/dL (6.4-8.2)
[2021-07-23 08:00] VITALS: BP 118/80
[2021-07-23 08:57] VITALS: BP 118/80
[2021-07-23] MEDS ORDERED: Quetiapine Fumerate (Seroquel Xr) 300 MG PO SCH (10:00)
[2021-07-23] MEDS ORDERED: PANTOPRAZOLE 40 MG/10 ML VIAL INJ IV SCH (10:00)
[2021-07-23] MEDS ORDERED: PANCREATIC ENZYMES PO SCH (10:00)
[2021-07-23] MEDS ORDERED: ZINC SULFATE 220mg CAP or TAB PO SCH (10:00)
[2021-07-23] MEDS ORDERED: MULTIPLE VITAMIN TAB PO SCH (10:00)
[2021-07-23] MEDS: ASCORBIC ACID 500 MG TAB PO SCH ×2 (10:02→23:07)
[2021-07-23 13:00] VITALS: BP 138/90
[2021-07-23 16:54] VITALS: BP 130/84
[2021-07-23] MEDS: LACTATED RINGER'S 1,000 ML IV SCH (17:50)
[2021-07-23] MEDS: FERROUS SULFATE 325mg EC TAB PO SCH (18:11)
[2021-07-23] MEDS: PANCREATIC ENZYMES PO SCH (18:11)
[2021-07-23 21:38] VITALS: BP 125/87
[2021-07-23] MEDS: CARISOPRODOL 350 MG TAB PO SCH (21:43)
[2021-07-23] MEDS: LORazepam 0.5 MG TAB PO SCH (21:43)
[2021-07-23] MEDS: Quetiapine Fumerate (Seroquel Xr) 300 MG PO SCH (21:44)
[2021-07-23] MEDS: TEMAZEPAM 15 MG CAP PO PRN (23:08)
[2021-07-24] MEDS: HYDROmorphone HCL 2 MG/ML VL IV PRN ×6 (01:34→23:27)
[2021-07-24] MEDS: LACTATED RINGER'S 1,000 ML IV SCH ×4 (01:35→21:25)
[2021-07-24] MEDS: HYDROcodone-ACET 5/325MG TAB PO PRN ×2 (04:34→20:10)
[2021-07-24 05:33] VITALS: BP 133/84
[2021-07-24] MEDS: PANCREATIC ENZYMES PO SCH ×5 (06:00→23:26)
[2021-07-24 09:00] VITALS: BP 125/78
[2021-07-24] MEDS: FERROUS SULFATE 325mg EC TAB PO SCH ×2 (09:12→18:41)
[2021-07-24] MEDS: LORazepam 0.5 MG TAB PO SCH ×2 (09:12→21:24)
[2021-07-24] MEDS: ZINC SULFATE 220mg CAP or TAB PO SCH (09:12)
[2021-07-24] MEDS: ASCORBIC ACID 500 MG TAB PO SCH ×2 (09:13→21:24)
[2021-07-24] MEDS: MULTIPLE VITAMINS W/ MINERALS TAB PO SCH (09:13)
[2021-07-24] MEDS: CARISOPRODOL 350 MG TAB PO SCH ×2 (09:13→21:24)
[2021-07-24] MEDS: PANTOPRAZOLE 40 MG TAB PO SCH (09:13)
[2021-07-24 13:00] VITALS: BP 134/80
[2021-07-24 16:54] VITALS: BP 103/66
[2021-07-24 20:00] VITALS: BP 142/79
[2021-07-24] MEDS: Quetiapine Fumerate (Seroquel Xr) 300 MG PO SCH (21:23)
[2021-07-24] MEDS: TEMAZEPAM 15 MG CAP PO PRN (21:25)
[2021-07-24 23:27] VITALS: BP 135/78
[2021-07-25] MEDS: HYDROcodone-ACET 5/325MG TAB PO PRN ×3 (01:34→16:30)
[2021-07-25 03:40] VITALS: BP 144/90
[2021-07-25] MEDS: HYDROmorphone HCL 2 MG/ML VL IV PRN ×6 (03:40→23:40)
[2021-07-25 05:00] VITALS: BP 118/76
[2021-07-25] MEDS: PANCREATIC ENZYMES PO SCH ×3 (05:43→18:17)
[2021-07-25 05:54] LABS: Albumin 2.8 g/dL (3.4-5.0); BUN/Creatinine Ratio 6.3; Calcium 8.7 mg/dL (8.5-10.1); Potassium 3.8 mmol/L (3.5-5.1)
[2021-07-25 05:58] LABS: Bilirubin, Total 0.2 mg/dL (0.2-1.0); Total Protein 6.5 g/dL (6.4-8.2)
[2021-07-25] MEDS: PANTOPRAZOLE 40 MG TAB PO SCH (08:53)
[2021-07-25] MEDS: MULTIPLE VITAMINS W/ MINERALS TAB PO SCH (08:53)
[2021-07-25] MEDS: ZINC SULFATE 220mg CAP or TAB PO SCH (08:53)
[2021-07-25] MEDS: FERROUS SULFATE 325mg EC TAB PO SCH ×2 (08:53→17:21)
[2021-07-25] MEDS: LORazepam 0.5 MG TAB PO SCH ×2 (08:54→22:00)
[2021-07-25] MEDS: ASCORBIC ACID 500 MG TAB PO SCH ×2 (08:54→21:51)
[2021-07-25] MEDS: CARISOPRODOL 350 MG TAB PO SCH ×2 (08:55→21:51)
[2021-07-25 09:18] VITALS: BP 134/89
[2021-07-25] MEDS: LACTATED RINGER'S 1,000 ML IV SCH ×2 (12:31→15:15)
[2021-07-25 13:01] VITALS: BP 126/74
[2021-07-25 16:44] VITALS: BP 124/85
[2021-07-25 22:00] VITALS: BP 153/88
[2021-07-25] MEDS: Quetiapine Fumerate (Seroquel Xr) 300 MG PO SCH (22:00)
[2021-07-26] MEDS: LACTATED RINGER'S 1,000 ML IV SCH ×3 (01:07→15:18)
[2021-07-26] MEDS: HYDROmorphone HCL 2 MG/ML VL IV PRN ×5 (02:56→16:34)
[2021-07-26 05:00] VITALS: BP 130/88
[2021-07-26] MEDS: PANCREATIC ENZYMES PO SCH ×3 (06:00→12:00)
[2021-07-26] MEDS: FERROUS SULFATE 325mg EC TAB PO SCH (08:00)
[2021-07-26] MEDS: PANTOPRAZOLE 40 MG TAB PO SCH (10:07)
[2021-07-26] MEDS: CARISOPRODOL 350 MG TAB PO SCH (10:07)
[2021-07-26] MEDS: MULTIPLE VITAMINS W/ MINERALS TAB PO SCH (10:07)
[2021-07-26] MEDS: LORazepam 0.5 MG TAB PO SCH (10:07)
[2021-07-26] MEDS: ZINC SULFATE 220mg CAP or TAB PO SCH (10:07)
[2021-07-26] MEDS: ASCORBIC ACID 500 MG TAB PO SCH (10:08)
[2021-07-26 13:00] VITALS: BP 139/82
[2021-07-26 17:02] VITALS: BP 129/85
== END 2021-07-26 18:26 | disposition home or self-care (01) | DRG 439 ==
LOC: ER 02:52 → TELE 12:37 → TELE-WESTW 16:11 → WEST WING 07-25 13:55
PROVIDERS: ADMIT Internal Medicine; ATTEND Internal Medicine
PROC: 05H933Z Insertion of Infusion Device into Right Brachial Vein, Percutaneous Approach (ICD-10-PCS; principal; 2021-07-23)
PROC: B54MZZA Ultrasonography of Right Upper Extremity Veins, Guidance (ICD-10-PCS; 2021-07-23)
DX: K85.90 Acute pancreatitis without necrosis or infection, unspecified (principal); K86.3 Pseudocyst of pancreas; K86.1 Other chronic pancreatitis; D73.5 Infarction of spleen; F31.9 Bipolar disorder, unspecified; F12.90 Cannabis use, unspecified, uncomplicated; F17.210 Nicotine dependence, cigarettes, uncomplicated; M41.9 Scoliosis, unspecified; Z20.822 Contact with and (suspected) exposure to COVID-19; J45.909 Unspecified asthma, uncomplicated; F41.9 Anxiety disorder, unspecified; K21.9 Gastro-esophageal reflux disease without esophagitis; Z88.5 Allergy status to narcotic agent; Z88.8 Allergy status to other drugs, medicaments and biological substances; Z82.3 Family history of stroke; Z81.8 Family history of other mental and behavioral disorders; Z82.49 Family history of ischemic heart disease and other diseases of the circulatory system; Z83.3 Family history of diabetes mellitus; Z88.1 Allergy status to other antibiotic agents; Z91.041 Radiographic dye allergy status
CPT/HCPCS: 36415; 71046; 74176; 80053; 80307; 81001; 83690; 83735; 84443; 84484; 85025; 87040; 93005; 96361; 96365; 96375; 96376; C9113; G0378; J2405

== ENCOUNTER 2022-12-05 11:12 | Inpatient (IN) | payer MEDICAID, MEDICARE, OTHER ==
[~2022-12-05] VITALS: Ht 152.4 cm; Wt 69.8 kg
[~2022-12-05 11:12] MED LIST changes: +BIOT10009 PO; +CARI350T28 PO; +HYDR-4798; +IBUP-1455 PO; -LORA2TAB12 PO; +LORA2TAB89 PO; +TIZA-326 PO; +ZINC220C8 PO; +[UNRECOGNIZED DRUG - CODE] PO
[2022-12-05 12:01] LABS: Basophils # (auto) 0.1 10 ^3/uL (0-0.2); Eosinophils # (auto) 0.3 10 ^3/uL (0-0.8); Hematocrit 39.2 % (36.0-46.0); Hemoglobin 13.3 g/dL (12.2-16.2); Lymphocytes % (auto) 34.8 % (10.0-50.0); Mean Corpuscular Hemoglobin 32.8 pg (28.0-32.0); Mean Corpuscular Hgb Conc. 33.8 g/dL (32.0-36.0); Mean Corpuscular Volume 97.1 fL (80.0-100.0); Monocytes # (auto) 0.9 10 ^3/uL (0-1.3); Neutrophils # (auto) 4.3 10 ^3/uL (1.6-8.6); Neutrophils % (auto) 50.2 % (37.0-80.0); Nucleated Red Blood Cells % 0.1 %; Red Blood Cells 4.04 10^6/uL (4.0-5.20); Red Cell Distribution Width 14.7 % (11.8-14.3); White Blood Cell 8.6 10^3/uL (4.4-10.8)
[2022-12-05 12:15] LABS: Urine Bacteria MANY /hpf (None Seen); Urine Blood Negative /uL (Negative); Urine Clarity HAZY (Clear); Urine Color Yellow (Yellow); Urine Mucus FEW (None Seen); Urine Protein, UAD 1+ (Negative); Urine Specific Gravity 1.038 (1.001-1.035); Urine WBC 2 /hpf (0 - 5)
[2022-12-05 12:32] LABS: Albumin 3.3 g/dL (3.4-5.0); Calcium 8.9 mg/dL (8.5-10.1); Potassium 3.4 mmol/L (3.5-5.1)
[2022-12-05 12:36] LABS: BUN/Creatinine Ratio 13.3 (10.0-20.0); Bilirubin, Total 0.2 mg/dL (0.2-1.0); Total Protein 8.5 g/dL (6.4-8.2)
[2022-12-05] MEDS ORDERED: ONDANSETRON HCL 4 MG/2 ML VIAL IV ONE (13:00)
[2022-12-05] MEDS ORDERED: HYDROmorphone HCL 2 MG/ML VL/or syr IV ONE ×2 (13:00→15:15)
[2022-12-05] MEDS ORDERED: SODIUM CHLORIDE 0.9% 1,000 ML IV ONE (13:30)
[2022-12-05] MEDS ORDERED: IOHEXOL 300 MG/ML 100ML BOTTLE IJ ONE (14:04)
[2022-12-05] MEDS ORDERED: DexAMETHasone SOD PHOS 10MG/1ML VIAL INJ IV ONE (14:15)
[2022-12-05] MEDS ORDERED: diphenhdrAMINE HCL 50 MG/1 ML VL IV ONE (14:15)
[2022-12-05] MEDS ORDERED: DOCUSATE SOD 100 MG CAP PO PRN (18:30)
[2022-12-05] MEDS ORDERED: ONDANSETRON HCL 4 MG/2 ML VIAL IV PRN (18:30)
[2022-12-05] MEDS ORDERED: PATIENTS OWN MEDICATION (Ondansetron (Zofran) 4 MG) PO SCH (18:30)
[2022-12-05] MEDS ORDERED: ALBUTEROL SULF HFA 90MCG INH 200DOSE IN PRN (18:30)
[2022-12-05] MEDS ORDERED: ALBUTEROL SULF 2.5 MG/0.5ML(0.5%) NEB SOLN NEB PRN (19:15)
[2022-12-05] MEDS: SODIUM CHLORIDE 0.9% 1,000 ML IV SCH (19:28)
[2022-12-05 19:30] VITALS: PULSE 94; RESP 20; O2SAT 100
[2022-12-05] MEDS: HYDROmorphone HCL 2 MG/ML VL/or syr IV PRN ×2 (19:44→23:12)
[2022-12-05 20:24] VITALS: BP 127/86; PULSE 78; RESP 18; TEMP 98.4; O2SAT 98
[2022-12-05] MEDS: TIZANIDINE HYDROCHLORIDE PO SCH (22:00)
[2022-12-05 22:15] VITALS: BP 122/80; PULSE 84; RESP 18; TEMP 97.8; O2SAT 100
[2022-12-05] MEDS: QUETIAPINE FUMERATE 300 MG PO SCH (22:15)
[2022-12-05 22:42] VITALS: O2SAT 95
[2022-12-05] MEDS ORDERED: THIA100T10 GT (23:36)
[2022-12-06] VITALS (7 sets, daily range): BP systolic 101–137; BP diastolic 63–85; PULSE 64–80; RESP 16–64; TEMP 97.4–98.3; O2SAT 94–100
[2022-12-06] MEDS: CARISOPRODOL 350 MG TAB PO SCH ×3 (00:08→10:36)
[2022-12-06] MEDS: LORazepam 0.5 MG TAB PO PRN ×2 (00:09→18:32)
[2022-12-06] MEDS: FERROUS SULFATE 325mg EC TAB PO SCH ×3 (00:10→22:23)
[2022-12-06] MEDS: SODIUM CHLORIDE 0.9% 1,000 ML IV SCH ×3 (02:50→22:36)
[2022-12-06] MEDS: HYDROmorphone HCL 2 MG/ML VL/or syr IV PRN ×5 (03:46→22:35)
[2022-12-06 06:33] LABS: Calcium 8.3 mg/dL (8.5-10.1); Potassium 4.1 mmol/L (3.5-5.1)
[2022-12-06 06:40] LABS: Albumin 2.9 g/dL (3.4-5.0); BUN/Creatinine Ratio 13.6 (10.0-20.0); Basophils # (auto) 0 10 ^3/uL (0-0.2); Basophils % (auto) 0.2 % (0.0-2.0); Bilirubin, Total 0.4 mg/dL (0.2-1.0); Eosinophils # (auto) 0 10 ^3/uL (0-0.8); Eosinophils % (auto) 0.1 % (0.0-7.0); Hematocrit 34.6 % (36.0-46.0); Hemoglobin 11.6 g/dL (12.2-16.2); Lymphocytes # (auto) 1.8 10 ^3/uL (0.4-5.4); Lymphocytes % (auto) 24.9 % (10.0-50.0); Mean Corpuscular Hgb Conc. 33.4 g/dL (32.0-36.0); Mean Corpuscular Volume 98.7 fL (80.0-100.0); Monocytes # (auto) 0.5 10 ^3/uL (0-1.3); Monocytes % (auto) 7.5 % (0.0-12.0); Neutrophils # (auto) 4.7 10 ^3/uL (1.6-8.6); Neutrophils % (auto) 67.3 % (37.0-80.0); Nucleated Red Blood Cells % 0.1 %; Red Cell Distribution Width 14.8 % (11.8-14.3); Total Protein 7.4 g/dL (6.4-8.2)
[2022-12-06] MEDS: QUETIAPINE FUMERATE 300 MG PO SCH (10:00)
[2022-12-06] MEDS ORDERED: PANTOPRAZOLE 40 MG TAB PO SCH (10:00)
[2022-12-06] MEDS ORDERED: Quetiapine Fumerate (Seroquel Xr) 300 MG PO SCH (10:00)
[2022-12-06] MEDS: TIZANIDINE HYDROCHLORIDE PO SCH (10:00)
[2022-12-06] MEDS ORDERED: PANCRELIPASE PO SCH (10:00)
[2022-12-06] MEDS: ALLOPURINOL 300 MG TAB PO SCH (10:36)
[2022-12-06] MEDS: ZINC SULFATE 220mg CAP or TAB PO SCH (10:36)
[2022-12-06] MEDS: MULTIPLE VITAMINS W/ MINERALS TAB PO SCH (10:36)
[2022-12-06] MEDS: CHOLECALCIFEROL (VITD3) 2,000 UNIT CAP/TAB PO SCH (10:37)
[2022-12-06] MEDS ORDERED: PANCREATIC ENZYMES 4200 UNIT CAP PO SCH (12:22)
[2022-12-06] MEDS: POTASSIUM EFFERVESENT TAB 25 MEQ PO SCH (12:26)
[2022-12-06 13:01] LABS: Cholesterol 140 mg/dL (< 200); HDL Cholesterol 52 mg/dL (40-59); LDL Cholesterol 69 mg/dL (< 100); Triglycerides 126 mg/dL (< 150)
[2022-12-06] MEDS: HYDROcodone-ACET 10/325MG TAB PO PRN ×2 (14:20→20:57)
[2022-12-06] MEDS ORDERED: HYDROcodone-ACET 10/325MG TAB PO PRN (14:30)
[2022-12-06] MEDS: ENSURE CLEAR Mixed Berry 8oz Carton PO SCH (18:20)
[2022-12-06] MEDS: PANCREATIC ENZYMES 4200 UNIT CAP PO SCH (18:20)
[2022-12-07] MEDS: HYDROmorphone HCL 2 MG/ML VL/or syr IV PRN (04:31)
[2022-12-07] MEDS: CARISOPRODOL 350 MG TAB PO SCH ×2 (04:32→09:37)
[2022-12-07] MEDS: SODIUM CHLORIDE 0.9% 1,000 ML IV SCH ×2 (04:49→13:18)
[2022-12-07 05:00] VITALS: BP 116/74; PULSE 67; RESP 17; TEMP 97.6; O2SAT 96
[2022-12-07 06:23] LABS: Hematocrit 35.7 % (36.0-46.0); Hemoglobin 11.7 g/dL (12.2-16.2); Mean Corpuscular Hemoglobin 32.6 pg (28.0-32.0); Mean Corpuscular Hgb Conc. 32.9 g/dL (32.0-36.0); Red Cell Distribution Width 14.8 % (11.8-14.3); White Blood Cell 6.8 10^3/uL (4.4-10.8)
[2022-12-07 06:29] LABS: Potassium 4.2 mmol/L (3.5-5.1)
[2022-12-07] MEDS: HYDROcodone-ACET 10/325MG TAB PO PRN ×2 (06:36→13:18)
[2022-12-07 06:38] LABS: Albumin 2.8 g/dL (3.4-5.0); BUN/Creatinine Ratio 9.7 (10.0-20.0); Bilirubin, Total 0.4 mg/dL (0.2-1.0); Calcium 8.5 mg/dL (8.5-10.1); Total Protein 7.3 g/dL (6.4-8.2)
[2022-12-07 06:55] LABS: Basophils % (manual) 0 (0.0-2.0); Blast Cells 0; Eosinophils % (manual) 0 (0-7); Metamyelocytes % 0; Promyelocytes % 0; Reactive Lymphocytes 0
[2022-12-07 07:06] VITALS: O2SAT 97
[2022-12-07 08:00] VITALS: BP 104/74; PULSE 59; RESP 16; TEMP 97.9; O2SAT 98
[2022-12-07] MEDS: ENSURE CLEAR Mixed Berry 8oz Carton PO SCH ×2 (08:00→18:00)
[2022-12-07] MEDS: POTASSIUM EFFERVESENT TAB 25 MEQ PO SCH (09:37)
[2022-12-07] MEDS: FERROUS SULFATE 325mg EC TAB PO SCH (09:37)
[2022-12-07] MEDS: MULTIPLE VITAMINS W/ MINERALS TAB PO SCH (09:37)
[2022-12-07] MEDS: CHOLECALCIFEROL (VITD3) 2,000 UNIT CAP/TAB PO SCH (09:37)
[2022-12-07] MEDS: ALLOPURINOL 300 MG TAB PO SCH (09:37)
[2022-12-07] MEDS: ZINC SULFATE 220mg CAP or TAB PO SCH (09:37)
[2022-12-07] MEDS: PANCREATIC ENZYMES 4200 UNIT CAP PO SCH ×3 (09:41→18:00)
[2022-12-07] MEDS ORDERED: FAMOTIDINE 20 MG TAB PO SCH (10:00)
[2022-12-07 11:22] LABS: Band Neutrophils % (manual) 1; Lymphocytes % (manual) 33 (10.0-50.0); Monocytes % (manual) 11 (0-12); Myelocytes % 9; Platelet Estimate Adequate
[2022-12-07 12:00] VITALS: BP 118/77; PULSE 73; RESP 16; TEMP 97.7; O2SAT 100
[2022-12-07] MEDS ORDERED: HYDROmorphone HCL 2 MG/ML VL/or syr IV ONE (14:15)
[2022-12-07] MEDS ORDERED: cefTRIAXone 1GM/50ML D5W 50 ML IV SCH (15:00)
[2022-12-07 16:00] VITALS: BP 144/75; PULSE 80; RESP 16; TEMP 97.6; O2SAT 100
[2022-12-07 16:38] VITALS: BP 125/89; PULSE 70; RESP 19
[2022-12-07] MEDS ORDERED: QUETIAPINE FUMERATE 300 MG PO SCH (22:00)
[2022-12-07] MEDS ORDERED: LACTULOSE 20Gm/30ML SOLN PO SCH (22:00)
[2022-12-07] MEDS ORDERED: DOCUSATE SOD 100 MG CAP PO SCH (22:00)
[2022-12-09 11:53] LABS: Hepatitis A Ab IgM Negative
[2022-12-09 11:54] LABS: Hepatitis B Core IgM Negative; Hepatitis B Surface Antigen Negative (Negative)
[2022-12-09 11:55] LABS: Hepatitis C Antibody Negative (Negative)
== END 2022-12-07 18:47 | disposition home or self-care (01) | DRG 282 ==
LOC: ER 11:12 → OVERFLOW 18:35 → CENTRAL 22:41
PROVIDERS: ADMIT Internal Medicine Pulmonary Disease; ATTEND Internal Medicine
DX: K85.90 Acute pancreatitis without necrosis or infection, unspecified (principal); E87.6 Hypokalemia; F41.9 Anxiety disorder, unspecified; J45.909 Unspecified asthma, uncomplicated; F31.9 Bipolar disorder, unspecified; R74.01 Elevation of levels of liver transaminase levels; F17.210 Nicotine dependence, cigarettes, uncomplicated; K21.9 Gastro-esophageal reflux disease without esophagitis; R16.1 Splenomegaly, not elsewhere classified; M10.9 Gout, unspecified; Z88.1 Allergy status to other antibiotic agents; Z91.041 Radiographic dye allergy status; Z88.5 Allergy status to narcotic agent; Z88.8 Allergy status to other drugs, medicaments and biological substances; Z91.018 Allergy to other foods; Z90.49 Acquired absence of other specified parts of digestive tract; Z98.51 Tubal ligation status
CPT/HCPCS: 36415; 74176; 74177; 80053; 80061; 80074; 80320; 81001; 83690; 85007; 85025; 85027; G0378; J1100; J2405

== ENCOUNTER 2024-08-02 13:25 | Inpatient (IN) | payer MEDICAID, OTHER ==
[~2024-08-02] VITALS: Ht 152.4 cm; Wt 57.2 kg
[~2024-08-02 13:25] MED LIST changes: +CARI-579 PO; -CARI350T28 PO; +THIA100T10 GT; -TIZA-326 PO; +TIZA1TAB20 PO
--- NOTE | 2024-08-02 13:50 | ED.PDOC ---
GI ASSESSMENT HPI Comments 54 y.o female presents to the ED for a chief complaint of LUQ pain associated with nausea and vomiting nonbilious nonbloody that started 3 days ago. Patient describes pain as sharp, constant, non radiating and has no alleviating factors. Patient reports vomiting about 5-6 times per day with no blood noted. Patient denies any diarrhea, fever, chills, or dysuria. Patient states symptoms are similar to previous episodes of pancreatitis. Patient reports symptoms are same to previous pancreatitis flare ups. Vitals: BP: 97/73 HR: 100 Temp: 98.2 F SPO2: 96% RA RR: 18 Past medical history: Pancreatitis, GERD, Scoliosis, bipolar disorder Past surgical history: tubal ligation, , splenic and abdominal coil Allergies: Erythromycin, Iodine, Levofloxacin, Meperidine, Morphine, Tetracycline HPI: Poor Historian. REVIEW OF SYSTEMS: CONSTITUTIONAL: Denies acute: fever, diaphoresis, chills, generalized weakness. HEAD: Denies acute: headache, photophobia Eyes: Denies acute: Double vision, vision loss, eye pain, eye discharge. EARS: Denies acute: tinnitus, hearing loss, ear discharge, ear pain, THROAT: Denies acute: sore throat, swelling, difficulty swallowing , pain with swallowing, change in voice. NECK: Denies acute: neck pain, neck swelling, stiff neck. HEART: Denies acute : chest pain, palpitations, LUNGS: Denies acute: SOB, wheezing, cough, hemoptysis ABDOMEN: Denies acute: , diarrhea, melena , hematemesis, hematochezia SKIN: Denies acute: rash, redness, lesions, itchiness. EXTREMITIES: Denies acute: calf pain, numbness, tingling, weakness, denies pain in extremity. Denies acute: Low back pain. Neuro: Denies acute: focal neurological deficit, motor or sensory focal neurological deficit, tremors, seizure like activity, confusion, dizziness, change in mental status, loss of bowel or bladder function, cauda equina like symptoms. : Denies acute: dysuria, hematuria, flank pain, increase in urinary frequency. PSYCH: Denies acute: hallucination, suicidal ideation, homicidal ideation. FEMALE: Denies acute: abnormal vaginal bleeding, foul odor, unusual discharge. PHYSICAL EXAM: General: -----[id number]---acute distress, awake and alert. Head: normocephalic, atraumatic. Neck: supple, trachea is midline, no swelling. Throat: Normal phonation. Eyes:, no erythema, no purulent discharge, no proptosis, no icterus. Heart: regular rate, regular rhythm, no significant murmur appreciated. Lungs: no apparent respiratory distress, Able to speak in full sentences. No wheezing, no rhonchi, no crackles. No stridors Clear to auscultation bilaterally. Abdomen: Left upper quadrant and epigastric tender to palpation, non distended, soft, no guarding, no rebound, + bowel sounds. Neuro: Awake, Alert, oriented to name, self, situation, follows commands GCS=15. Speech is normal. Skin: no petechia, no purpura, no cyanosis, non-pale, not jaundice. Lower extremities: --no - Pitting edema no deformity, no focal swelling, no calf TTP. Makes eye contact. moves all four extremities. Face: no apparent facial droop. Ambulating in the ED independently. ED COURSE: Time Seen by MD: 13:40 Primary Care Provider: UNKNOWN Reviewed Notes: Nurses Notes, Allergies Allergies: Coded Allergies: Erythromycin (Verified Allergy, Severe, 09/04/18) Kiwi Extract (Verified Allergy, Intermediate, Tongue and Facial swelling, , 09/04/18) Iodine (Verified Allergy, Mild, ITCHING, 09/04/18) Meperidine (Verified Allergy, Mild, SWELLING, 09/04/18) Tetracycline (Verified Allergy, Mild, SWELLING, 09/04/18) Levofloxacin (Verified Allergy, Unknown, 09/04/18) Morphine (Verified Allergy, Unknown, 09/04/18) PER RN, PT STATED SHE IS OK TO TAKE NORCO AND DILAUDID Home Meds Reported Medications Thiamine Hcl (VITAMIN B-1) 100 Mg Tb, 100 MG GT, TAB 12/05/22 Multiple Vitamins W/ Minerals (Multivitamin Womens) 1 Tab Tab, 1 TAB PO DAILY, TAB 07/22/21 Zinc Sulfate (Zinc Sulfate) 220 Mg Cap, 220 MG PO DAILY, MG 07/22/21 Biotin (Vitamin H) (Biotin Gummies) 1,000 Mcg Chw, 1000 MCG PO, CHW 07/22/21 Ibuprofen Micronized (Ibuprofen) 800 Mg Tab, 1 TAB PO TID 07/22/21 Hydrocodone-Acetaminophen (Hydrocodone Bitartrate/AC 10-325 mg) 1 Tab Tab 07/22/21 Tizanidine Hydrochloride (Tizanidine Hcl) 2 Mg Tab, 1 TAB PO BID 07/22/21 Lorazepam (Ativan) 2 Mg Tab, 2 MG PO BID 07/22/21 Carisoprodol (Carisoprodol) 350 Mg Tab, 1 TAB PO BIDPRN 07/22/21 Albuterol Sulfate (VENTOLIN MDI) 90 Mcg Ih, 90 MCG IN Q6HP PRN for SHORTNESS OF BREATH for 30 Days, MCG 02/01/20 Quetiapine Fumerate (Seroquel Xr) 150 Mg Tab, 300 MG PO DAILY, MG 12/25/19 Pancreatic Enzymes (CREON) 3,000 Unit Cap, 28093 UNIT PO DAILY, CAP 10/30/19 Cholecalciferol (VITAMIN D3) 2,000 Unit Tab, 1 TAB PO DAILY, #30 TAB 5 Refills 10/30/19 Allopurinol (ZYLOPRIM TABLET) 300 Mg Tb, 1 TAB PO DAILY, #30 TAB 5 Refills 10/30/19 Ondansetron (Zofran) 4 Mg Tab, 4 MG PO PRN, MG 05/01/19 Pantoprazole Sodium Sesquihydr (Protonix) 40 Mg Tab, 40 MG PO DAILY, TAB 03/30/17 Past Medical History PAST MEDICAL HISTORY: Anxiety, Asthma, GERD, Gout Surgical History: Appendectomy, , Tubal Ligation PATTERN STAMPER History: No Pertinent PATTERN STAMPER History Family History Family History: Reviewed,noncontributory to illness, Family hx of DM, Family hx of HTN Family History (Other): Gout Social History Smoker: Cigarettes, Less Than 1 Pack/Day Alcohol: Occasionally Drugs: Marijuana Lives In: Home Was a procedure done? Was a procedure done?: No GI differential Dx Differential Diagnosis: Esophagitis, Gastritis/PUD, Gastroenteritis, Inflammatory BD, Pancreatitis, Viral, Other (DDX include Diverticulitis, colitis, gastroenteritis, acute abdomen, SBO, enteritis, constipation, volvulus, appendicitis, Gallbladder disease, choledocolithiasis, ascending cholangitis, pancreatitis, intraAbdominal mass/neoplasm, hepatitis, UTI, pylonephritis, kidney stone, aneurysm, dissection, Inflammatory bowel disease, gastroparesis, ischemic bowel, ovarian torsion, ovarian cyst/mass, tubo-ovarian abscess, , ectopic , PID, STD.) X-Ray, Labs, Meds, VS Vital Signs Date Time Temp Pulse Resp B/P (MAP) Pulse Ox O2 Delivery O2 Flow Rate FiO2 08/02/24 18:45 93 20 99/67 (78) 94 08/02/24 16:04 83 17 104/70 (81) 97 08/02/24 16:03 82 17 104/70 08/02/24 15:19 83 19 109/76 08/02/24 14:41 98.0 93 19 106/72 (83) 97 98.0 08/02/24 14:41 93 17 97 Room Air* 0 21 08/02/24 13:46 98.2 100 18 97/73 (81) 96 98.2 Lab Test 08/02/24 14:37 08/02/24 13:52 08/02/24 13:42 08/02/24 13:25 Range/Units Troponin I High Sensitivity 4 5 </=34 ng/L White Blood Count 10.5 4.4-10.8 10^3/uL Red Blood Count 4.02 4.0-5.20 10^6/uL Hemoglobin 13.7 12.2-16.2 g/dL Hematocrit 39.6 36.0-46.0 % Mean Corpuscular Volume 98.6 80.0-100.0 fL Mean Corpuscular Hemoglobin 34.0 H 28.0-32.0 pg Mean Corpuscular Hemoglobin Concent 34.5 32.0-36.0 g/dL Red Cell Distribution Width 13.5 11.8-14.3 % Platelet Count 249 140-450 10^3/uL Mean Platelet Volume 7.7 6.9-10.8 fL Neutrophils (%) (Auto) 51.4 37.0-80.0 % Lymphocytes (%) (Auto) 38.2 10.0-50.0 % Monocytes (%) (Auto) 9.5 0.0-12.0 % Eosinophils (%) (Auto) 0.6 0.0-7.0 % Basophils (%) (Auto) 0.3 0.0-2.0 % Neutrophils # (Auto) 5.4 1.6-8.6 10 ^3/uL Lymphocytes # (Auto) 4.0 0.4-5.4 10 ^3/uL Monocytes # (Auto) 1.0 0-1.3 10 ^3/uL Eosinophils # (Auto) 0.1 0-0.8 10 ^3/uL Basophils # (Auto) 0 0-0.2 10 ^3/uL Nucleated Red Blood Cells 0.2 % Sodium Level 136 136-145 mmol/L Potassium Level 4.2 3.5-5.1 mmol/L Chloride Level 107 98-107 mmol/L Carbon Dioxide Level 23 20-31 mmol/L Anion Gap 6 5-15 Blood Urea Nitrogen 7 L 9-23 mg/dL Creatinine 0.80 0.550-1.02 mg/dL Glomerular Filtration Rate Calc 88 >90 mL/min BUN/Creatinine Ratio 8.8 L 10.0-20.0 Serum Glucose 114 H 74-106 mg/dL Lactic Acid Level 1.3 0.4-2.0 mmol/L Calcium Level 9.7 8.7-10.4 mg/dL Total Bilirubin 0.8 0.2-1.0 mg/dL Aspartate Amino Transferase (AST) 51 H 13-40 U/L Alanine Aminotransferase (ALT) 27 7-40 U/L Alkaline Phosphatase 321 H 46-116 U/L Total Protein 8.1 5.7-8.2 g/dL Albumin 4.2 3.2-4.8 g/dL Lipase 174 H 12-53 U/L Urine Color Yellow Yellow Urine Clarity Turbid H Clear Urine pH 6.5 5.0-9.0 Urine Specific [place] 1.022 1.001-1.035 Urine Protein 1+ H Negative Urine Ketones Negative Negative Urine Blood Negative Negative /uL Urine Nitrite Negative Negative Urine Bilirubin 1+ H Negative Urine Urobilinogen 12 H Negative mg/dL Urine Leukocyte Esterase Negative Negative /uL Urine RBC 1 0 - 4 /hpf Urine Microscopic WBC 5 0-5 /HPF Urine Squamous Epithelial Cells Few <5 /hpf Urine Bacteria Few H None Seen /hpf Urine Hyaline Casts Few 0 - 2 /lpf Urine Mucus Few None Seen Urine Glucose Normal Normal mg/dL [facility] [id number] [facility] [address] Ph: [phone] DIAGNOSTIC IMAGING Diagnostic Imaging Report : [id number] Signed PATIENT: JOESPH DEL RIO ACCT: [id number] UNIT: [id number] : 1970 LOC: ER ROOM / BED: / AGE / SEX: 54 / F ADM STATUS: REG ER SERVICE 1327 ORDERING PHYSICIAN: TAO WAITE DO PROCEDURE(s): ABPL - CT AB PEL WO CON-NO ORAL OR IV REASON: abd pain ORDER NUMBER(s): [id number], ACCESSION NUMBER(s): [id number] CT ABDOMEN AND PELVIS WITHOUT CONTRAST CLINICAL HISTORY: abd pain TECHNIQUE: Multiple contiguous axial images of the abdomen and pelvis without intravenous contrast. The images were reformatted degenerate coronal and sagittal reconstructions. All CT scans at this medical facility are performed using dose modulation techniques as appropriate to a performed exam including the following:Automated exposure control was utilized; adjustment of the MA and/or KV according to patient size; and use of iterative reconstruction technique. Radiation Dose Information: CT Dose: CTDI volume is 5.4 mGy. Dose-length product is 279 mGy*cm Comparison: CT CT AB PEL WO CON-NO ORAL OR IV on DOS: 12/05/22, CT ABD PELVIS WO CONTRAST on DOS: 07/22/21 FINDINGS: Evaluation of the abdomen and pelvis is limited without intravenous contrast. There is redemonstration of a large multiloculated cystic lesion in the spleen which appears fairly unchanged. There are again multiple clips/ coils in the left upper quadrant abdomen adjacent to the spleen. Again seen are multiple calcifications in the pancreas compatible with chronic pancreatitis. The liver, gallbladder, kidneys, adrenal glands appear within normal limits. There is no gross evidence of abdominal lymphadenopathy. There is no free fluid or free air. The stomach grossly appears unremarkable. The small and large bowel loops demonstrate normal caliber and distribution. The appendix is not seen in the right lower quadrant abdomen. There are no secondary signs of acute appendicitis. The abdominal aorta and IVC appear within normal limits. The bladder appears unremarkable for the degree of distention. Uterus appears within normal limits.. There is no delete the evidence of a pelvic mass. There is no free fluid collection. Lung bases are clear. There is no acute osseous abnormality. IMPRESSION: 1. There is no acute process in the abdomen and pelvis. 2. Redemonstration of a fairly stable multiloculated cystic lesion in the spleen. 3. Chronic pancreatitis. HS:Y ATED BY: EARL BURGOS MD DICTATED DATE/TIME: 08/02/241407 SIGNED BY: EARL BURGOS MD SIGNED DATE/TIME: 08/02/241407 CC: Time of 1ST Reevaluation: 13:46 Reevaluation 1ST: Unchanged Time of 2ND Reevaluation: 00:00 Reevaluation 2ND: Improved Patient Education/Counseling: Diagnosis, Treatment Family Education/Counseling: No Family Present Comments Patient presented with the above HPI.--abdominal pain----workup was initiated. patient was found with the above mentioned diagnosis. the following medications were ordered: please refer to order lists of meds and tests obtained by myself Dr. Waite. Patient ED course and VS have been stabilized. Patient has been reassessed in the ED and remained in a stable condition. Pertinent incidental findings were discussed with the patient and/or family. Patient/family voices understanding and is agreeable with plan. Patient has been observed in the ED adequate length of time to insure improvement/stability. Escalation of care considered: Consideration of escalation to observation or admission Patient was ADMITTED to the medicine team for further evaluation and treatment of their presentation. All the reports of any imaging studies that were ordered by myself were reviewed by myself. Departure 1 Departure Time of Disposition: 14:35 Impression: Primary Impression: Acute pancreatitis Disposition: ADMITTED INPATIENT Admit to: Tele Condition: Guarded Discharged With: Self Critical Care Note Critical Care Time?: Yes (35 min-critical care time only) I personally scribed for TAO WAITE DO ([email or web address]) on 08/02/24 at 13:50. Elect ronically submitted by Sherine Ribera ([facility]). TAO WAITE DO Aug 02, 2024 13:50
[2024-08-02 14:08] LABS: Basophils # (auto) 0 10 ^3/uL (0-0.2); Basophils % (auto) 0.3 % (0.0-2.0); Eosinophils # (auto) 0.1 10 ^3/uL (0-0.8); Eosinophils % (auto) 0.6 % (0.0-7.0); Hematocrit 39.6 % (36.0-46.0); Hemoglobin 13.7 g/dL (12.2-16.2); Lymphocytes % (auto) 38.2 % (10.0-50.0); Mean Corpuscular Hgb Conc. 34.5 g/dL (32.0-36.0); Mean Corpuscular Volume 98.6 fL (80.0-100.0); Monocytes % (auto) 9.5 % (0.0-12.0); Neutrophils # (auto) 5.4 10 ^3/uL (1.6-8.6); Neutrophils % (auto) 51.4 % (37.0-80.0); Nucleated Red Blood Cells % 0.2 %; Platelet Count (auto) 249 10^3/uL (140-450); Red Blood Cells 4.02 10^6/uL (4.0-5.20); Red Cell Distribution Width 13.5 % (11.8-14.3); White Blood Cell 10.5 10^3/uL (4.4-10.8)
--- NOTE | 2024-08-02 14:10 | DVH ---
CT ABDOMEN AND PELVIS WITHOUT CONTRAST CLINICAL HISTORY: abd pain TECHNIQUE: Multiple contiguous axial images of the abdomen and pelvis without intravenous contrast. T he images were reformatted degenerate coronal and sagittal reconstructions. All CT scans at this medical facility are performed using dose modulation techniques as appropriate t o a performed exam including the following:Automated exposure control was utilized; adjustment of the MA and/or KV according to patient size; and use of iterative reconstruction technique. Radiation Dose Information: CT Dose: CTDI volume is 5.4 mGy. Dose-length product is 279 mGy*cm Comparison: CT CT AB PEL WO CON-NO ORAL OR IV on DOS: 12/05/22, CT ABD PELVIS WO CONTRAST on DOS: FINDINGS: Evaluation of the abdomen and pelvis is limited without intravenous contrast. There is redemonstratio n of a large multiloculated cystic lesion in the spleen which appears fairly unchanged. There are aga in multiple clips/ coils in the left upper quadrant abdomen adjacent to the spleen. Again seen are multiple calcifications in the pancreas compatible with chronic pancreatitis. The liver, gallbladder, kidneys, adrenal glands appear within normal limits. There is no gross evidence of abdominal lymphadenopathy. There is no free fluid or free air. The stomach grossly appears unremarkable. The small and large bowel loops demonstrate normal caliber and distribution. The appendix is not seen in the right lower quadrant abdomen. There are no seconda ry signs of acute appendicitis. The abdominal aorta and IVC appear within normal limits. The bladder appears unremarkable for the degree of distention. Uterus appears within normal limits.. There is no delete the evidence of a pelvic mass. There is no free fluid collection. Lung bases are clear. There is no acute osseous abnormality. IMPRESSION: 1. There is no acute process in the abdomen and pelvis. 2. Redemonstration of a fairly stable multiloculated cystic lesion in the spleen. 3. Chronic pancreatitis. HS:Y
[2024-08-02 14:25] LABS: Alanine Aminotransferase 27 U/L (7-40); Albumin 4.2 g/dL (3.2-4.8); Anion Gap 6 (5-15); BUN/Creatinine Ratio 8.8 (10.0-20.0); Calcium 9.7 mg/dL (8.7-10.4); Carbon Dioxide 23 mmol/L (20-31); Potassium 4.2 mmol/L (3.5-5.1); Sodium 136 mmol/L (136-145); Total Protein 8.1 g/dL (5.7-8.2)
[2024-08-02 14:26] LABS: Alkaline Phosphatase 321 U/L (46-116); Aspartate Aminotransferase 51 U/L (13-40); Bilirubin, Total 0.8 mg/dL (0.2-1.0); Blood Urea Nitrogen 7 mg/dL (9-23); Chloride 107 mmol/L (98-107); Glucose 114 mg/dL (74-106); Lipase 174 U/L (12-53)
[2024-08-02] MEDS: SODIUM CHLORIDE 0.9% 1,000 ML IV ONE ×2 (14:38→23:51)
[2024-08-02] MEDS: ONDANSETRON HCL 4 MG/2 ML VIAL IV ONE (14:39)
[2024-08-02 14:41] VITALS: PULSE 93; RESP 17; O2SAT 97
[2024-08-02 15:07] LABS: Urine Bacteria FEW /hpf (None Seen); Urine Blood Negative /uL (Negative); Urine Clarity Turbid (Clear); Urine Color Yellow (Yellow); Urine Hyaline Cast FEW /lpf (0 - 2); Urine Mucus FEW (None Seen); Urine Protein, UAD 1+ (Negative); Urine Specific Gravity 1.022 (1.001-1.035); Urine Squamous Epithelial Cell FEW /hpf (<5); Urine Urobilinogen 12 mg/dL (Negative); Urine WBC 5 /HPF (0-5); Urine pH 6.5 (5.0-9.0)
[2024-08-02] MEDS: HYDROmorphone HCL 2 MG/ML VL/or syr IV ONE ×2 (15:19→22:29)
[2024-08-02] MEDS ORDERED: ACETAMINOPHEN 325 MG TAB PO PRN (19:30)
[2024-08-02 19:53] VITALS: BP 103/66; PULSE 96; RESP 16; RESP 18; TEMP 98.6; O2SAT 96; O2SAT 98
--- NOTE | 2024-08-02 19:53 | DVHHP2 ---
History of Present Illness Reason for Visit: Abdominal pain History of Present Illness 54-year-old female with a history of pancreatitis presents for evaluation of abdominal pain. Of note, patient has been admitted on multiple occasions for exacerbations of pancreatitis. Today's she presents with a two day history of epigastric nonradiating abdominal pain with associated nausea and vomiting. Denies fever or chills. No diarrhea. No other acute complaints reported. Past Medical History Bipolar, GERD, pancreatitis, Past Surgical History Tubal ligation, Family History Noncontributory Smoke: No ALCOHOL: none Drugs: None Lives: with Family Review of Systems Review of Systems Review of systems are currently negative otherwise addressed in HPI. Allergies: Coded Allergies: Erythromycin (Verified Allergy, Severe, 09/04/18) Kiwi Extract (Verified Allergy, Intermediate, Tongue and Facial swelling, , 09/04/18) Iodine (Verified Allergy, Mild, ITCHING, 09/04/18) Meperidine (Verified Allergy, Mild, SWELLING, 09/04/18) Tetracycline (Verified Allergy, Mild, SWELLING, 09/04/18) Levofloxacin (Verified Allergy, Unknown, 09/04/18) Morphine (Verified Allergy, Unknown, 09/04/18) PER RN, PT STATED SHE IS OK TO TAKE NORCO AND DILAUDID Medications Current Medications Medications Dose Ordered Sig/Pina Route Start Time Stop Time Status Last Admin Dose Admin Pantoprazole Sodium 40 mg DAILY IV 08/03/24 10:00 Acetaminophen/ Hydrocodone Bitart 1 tab Q4HP PRN PO 08/02/24 19:30 Ondansetron HCl 4 mg Q4HP PRN IV 08/02/24 19:30 Acetaminophen 650 mg Q6HP PRN PO 08/02/24 19:30 Exam Vital Signs Vital Signs Date Time Temp Pulse Resp B/P (MAP) Pulse Ox O2 Delivery O2 Flow Rate FiO2 08/02/24 18:45 93 20 99/67 (78) 94 08/02/24 14:41 98.0 98.0 08/02/24 14:41 Room Air* 0 21 Exam Gen: 54-year-old female in mild distress Skin: Warm, dry, normal color and texture, no rash. HEENT: Normocephalic atraumatic, mucous membranes moist and pink. Neck: Cervical and supraclavicular nodes normal without enlargement, trachea is midline, thyroid gland is normal without masses. Pulmonary: Clear to auscultation and percussion bilaterally. Cardiac: Regular rate and rhythm. No murmur Abdomen: Soft, epigastric tenderness, nondistended, bowel sounds present all 4 quadrants, no guarding, no rigidity, no organomegaly. Extremities: No cyanosis, clubbing, no edema Neuro: Cranial nerves II through XII grossly intact, normal affect and speech, no focal motor deficits. Labs/Xrays ORDERING PHYSICIAN: TAO WAITE DO PROCEDURE(s): ABPL - CT AB PEL WO CON-NO ORAL OR IV REASON: abd pain ORDER NUMBER(s): [id number], ACCESSION NUMBER(s): [id number] CT ABDOMEN AND PELVIS WITHOUT CONTRAST CLINICAL HISTORY: abd pain TECHNIQUE: Multiple contiguous axial images of the abdomen and pelvis without intravenous contrast. The images were reformatted degenerate coronal and sa gittal reconstructions. All CT scans at this medical facility are performed using dose modulation techniques as appropriate to a performed exam including the following:Automated exposure control was utilized; adjustment of the MA and/or KV according to pa tient size; and use of iterative reconstruction technique. Radiation Dose Information: CT Dose: CTDI volume is 5.4 mGy. Dose-length product is 279 mGy*cm Comparison: CT CT AB PEL WO CON-NO ORAL OR IV on DOS: 12/05/22, CT ABD PELVIS WO CONTRAST on DOS: 07/22/21 FINDINGS: Evaluation of the abdomen and pelvis is limited without intravenous contrast. There is redemonstration of a large multiloculated cystic lesion in the spleen which appears fairly unchanged. There are again multiple clips/ coils in the lef t upper quadrant abdomen adjacent to the spleen. Again seen are multiple calcifications in the pancreas compatible with chronic pancreatitis. The liver, gallbladder, kidneys, adrenal glands appear within normal limits. There is no gross evidence of abdominal lymphadenopathy. There is no free fluid or free air. The stomach grossly appears unremarkable. The small and large bowel loops demonstrate normal caliber and distribution. The appendix is not seen in the right lower quadrant abdomen. There are no secondary signs of acute appendicitis. The abdominal aorta and IVC appear within normal limits. The bladder appears unremarkable for the degree of distention. Uterus appears within normal limits.. There is no delete the evidence of a pelvic mass. There is no free fluid collection. Lung bases are clear. There is no acute osseous abnormality. IMPRESSION: 1. There is no acute process in the abdomen and pelvis. 2. Redemonstration of a fairly stable multiloculated cystic lesion in the spleen. 3. Chronic pancreatitis. HS:Y Labs Test 08/02/24 14:37 08/02/24 13:52 08/02/24 13:42 Range/Units Troponin I High Sensitivity 4 </=34 ng/L White Blood Count 10.5 4.4-10.8 10^3/uL Red Blood Count 4.02 4.0-5.20 10^6/uL Hemoglobin 13.7 12.2-16.2 g/dL Hematocrit 39.6 36.0-46.0 % Mean Corpuscular Volume 98.6 80.0-100.0 fL Mean Corpuscular Hemoglobin 34.0 H 28.0-32.0 pg Mean Corpuscular Hemoglobin Concent 34.5 32.0-36.0 g/dL Red Cell Distribution Width 13.5 11.8-14.3 % Platelet Count 249 140-450 10^3/uL Mean Platelet Volume 7.7 6.9-10.8 fL Neutrophils (%) (Auto) 51.4 37.0-80.0 % Lymphocytes (%) (Auto) 38.2 10.0-50.0 % Monocytes (%) (Auto) 9.5 0.0-12.0 % Eosinophils (%) (Auto) 0.6 0.0-7.0 % Basophils (%) (Auto) 0.3 0.0-2.0 % Neutrophils # (Auto) 5.4 1.6-8.6 10 ^3/uL Lymphocytes # (Auto) 4.0 0.4-5.4 10 ^3/uL Monocytes # (Auto) 1.0 0-1.3 10 ^3/uL Eosinophils # (Auto) 0.1 0-0.8 10 ^3/uL Basophils # (Auto) 0 0-0.2 10 ^3/uL Nucleated Red Blood Cells 0.2 % Sodium Level 136 136-145 mmol/L Potassium Level 4.2 3.5-5.1 mmol/L Chloride Level 107 98-107 mmol/L Carbon Dioxide Level 23 20-31 mmol/L Anion Gap 6 5-15 Blood Urea Nitrogen 7 L 9-23 mg/dL Creatinine 0.80 0.550-1.02 mg/dL Glomerular Filtration Rate Calc 88 >90 mL/min BUN/Creatinine Ratio 8.8 L 10.0-20.0 Serum Glucose 114 H 74-106 mg/dL Lactic Acid Level 1.3 0.4-2.0 mmol/L Calcium Level 9.7 8.7-10.4 mg/dL Total Bilirubin 0.8 0.2-1.0 mg/dL Aspartate Amino Transferase (AST) 51 H 13-40 U/L Alanine Aminotransferase (ALT) 27 7-40 U/L Alkaline Phosphatase 321 H 46-116 U/L Total Protein 8.1 5.7-8.2 g/dL Albumin 4.2 3.2-4.8 g/dL Lipase 174 H 12-53 U/L Urine Color Yellow Yellow Urine Clarity Turbid H Clear Urine pH 6.5 5.0-9.0 Urine Specific [place] 1.022 1.001-1.035 Urine Protein 1+ H Negative Urine Ketones Negative Negative Urine Blood Negative Negative /uL Urine Nitrite Negative Negative Urine Bilirubin 1+ H Negative Urine Urobilinogen 12 H Negative mg/dL Urine Leukocyte Esterase Negative Negative /uL Urine RBC 1 0 - 4 /hpf Urine Microscopic WBC 5 0-5 /HPF Urine Squamous Epithelial Cells Few <5 /hpf Urine Bacteria Few H None Seen /hpf Urine Hyaline Casts Few 0 - 2 /lpf Urine Mucus Few None Seen Urine Glucose Normal Normal mg/dL Assessment/Plan Assessment/Plan Assessment Acute on chronic pancreatitis Mild transaminitis Narcotic dependence Plan Admit the patient to [facility] to the hospitalist Clear liquid diet Pain management GI consultation Continue treatment per orders. Plan discussed with: Patient My Orders Orders - CONNOR ACOSTA AGACNP Procedure Category Date Status Time * Gi Dvh Export Specialist CONS 08/02/24 Transmitted 19:24 Sodium Chloride 0.9% PHA 08/02/24 In Process 19:30 Pantoprazole PHA 08/03/24 In Process (Protonix) 10:00 Admit ADMIT 08/02/24 Transmitted 19:24 Hydrocodone-Acet PHA 08/02/24 In Process 5/325mg Tab ([place] 19:30 Ondansetron Hcl PHA 08/02/24 In Process (Zofran) 19:30 Complete Blood Count LAB 08/03/24 Verified 04:00 Comprehensive LAB 08/03/24 Verified Metabolic Panel 04:00 Condition: Stable RAFAEL 08/02/24 In Process 19:24 Acetaminophen Tablet PHA 08/02/24 In Process (Tylenol Tablet) 19:30 Clear Liq Diet DIET 08/03/24 Transmitted Breakfast Bedrest With Bathroom RAFAEL 08/02/24 In Process Privileg 19:24 Date of Service: Aug 02, 2024 Billing Provider: CONNOR ACOSTA Common Visit Codes: [id number] INP/OBS CARE (MOD) CONNOR ACOSTA Aug 02, 2024 19:53
[2024-08-02] MEDS: KETOROLAC TROMETH 30 MG/ML 1ML VIAL IV ONE (19:55)
[2024-08-02 23:15] VITALS: BP 107/62; PULSE 98; RESP 18; TEMP 98.1; O2SAT 99
[2024-08-02] MEDS: TEMAZEPAM 15 MG CAP PO ONE (23:51)
[2024-08-03] VITALS (9 sets, daily range): BP systolic 101–124; BP diastolic 62–79; PULSE 80–106; RESP 15–18; TEMP 98.1–99.2; O2SAT 97–100
[2024-08-03] MEDS: KETOROLAC TROMETH 30 MG/ML 1ML VIAL IV PRN (00:31)
[2024-08-03] MEDS: ONDANSETRON HCL 4 MG/2 ML VIAL IV PRN (00:31)
[2024-08-03] MEDS: HYDROcodone-ACET 5/325MG TAB PO PRN (05:20)
[2024-08-03 06:10] LABS: Basophils # (auto) 0 10 ^3/uL (0-0.2); Basophils % (auto) 0.4 % (0.0-2.0); Eosinophils # (auto) 0.1 10 ^3/uL (0-0.8); Eosinophils % (auto) 1.2 % (0.0-7.0); Hematocrit 34.8 % (36.0-46.0); Hemoglobin 11.7 g/dL (12.2-16.2); Lymphocytes # (auto) 1.9 10 ^3/uL (0.4-5.4); Lymphocytes % (auto) 25.3 % (10.0-50.0); Mean Corpuscular Hemoglobin 32.7 pg (28.0-32.0); Mean Corpuscular Hgb Conc. 33.6 g/dL (32.0-36.0); Mean Corpuscular Volume 97.2 fL (80.0-100.0); Monocytes # (auto) 0.9 10 ^3/uL (0-1.3); Monocytes % (auto) 12.1 % (0.0-12.0); Neutrophils # (auto) 4.6 10 ^3/uL (1.6-8.6); Platelet Count (auto) 260 10^3/uL (140-450); Red Blood Cells 3.58 10^6/uL (4.0-5.20); Red Cell Distribution Width 12.9 % (11.8-14.3); White Blood Cell 7.6 10^3/uL (4.4-10.8)
[2024-08-03 06:27] LABS: Alanine Aminotransferase 22 U/L (7-40); Albumin 3.7 g/dL (3.2-4.8); Anion Gap 6 (5-15); Calcium 9.2 mg/dL (8.7-10.4); Carbon Dioxide 24 mmol/L (20-31); Glucose 95 mg/dL (74-106); Sodium 140 mmol/L (136-145); Total Protein 7.3 g/dL (5.7-8.2)
[2024-08-03 06:31] LABS: Alkaline Phosphatase 264 U/L (46-116); Aspartate Aminotransferase 43 U/L (13-40); BUN/Creatinine Ratio 8.1 (10.0-20.0); Blood Urea Nitrogen < 5 mg/dL (9-23); Chloride 110 mmol/L (98-107); Potassium 3.4 mmol/L (3.5-5.1)
[2024-08-03] MEDS: PANTOPRAZOLE 40 MG/10 ML VIAL INJ IV SCH (08:47)
[2024-08-03] MEDS: HYDROMORPHONE HCL 1 MG/ML INJ IV ONE ×2 (09:01→12:43)
--- NOTE | 2024-08-03 11:48 | DVHINCON2 ---
GI Consult Consult Note GI consult note Date of Consultation: 08/03/2024 Chief Complaint: Pancreatitis Referring Physician: Bryon BLUE H&P: 54-year-old female presented to ER with complains of abdominal pain. Mostly in the epigastric area the last one-week Patient also complains of nausea and vomiting. No hematemesis Last bowel movement one day ago, denies melena or red blood in stool Patient has history of chronic pancreatitis, has been treated with Creon [id number] which is helping with symptoms Patient has had multiple hospitalizations in the past, and records go back to 2013 at [facility] SP EGD and colonoscopy Dr. Hugo in 2017 Patient is asking for more pain medications Patient is status post procedure at [place] in 2019, and has a splenic coil Past Medical History: Bipolar, GERD, pancreatitis, Past Surgical History: Tubal ligation, Social History: NO smoking, drinking ETOH and use of illegal drugs. Family History: Noncontributory Review of Systems: Constitutional: no fever, chill, weight loss HEENT: no eye pain, no hearing loss, no oral lesion, no scleral icterus Heart: no chest pain, no chest pressure Lung: no cough, no dyspnea with exertion Abdomen: see HPI Physical exam: General: NAD, AAOX3 Chest: lung bradshaw clear to auscultation Heart: RRR, no murmur Abdomen: Moderate epigastric tenderness to palpation, +BS Labs: Labs Test 08/03/24 05:03 08/02/24 14:37 08/02/24 13:52 08/02/24 13:42 Range/Units White Blood Count 7.6 # 4.4-10.8 10^3/uL Red Blood Count 3.58 L 4.0-5.20 10^6/uL Hemoglobin 11.7 L 12.2-16.2 g/dL Hematocrit 34.8 #L 36.0-46.0 % Mean Corpuscular Volume 97.2 80.0-100.0 fL Mean Corpuscular Hemoglobin 32.7 H 28.0-32.0 pg Mean Corpuscular Hemoglobin Concent 33.6 32.0-36.0 g/dL Red Cell Distribution Width 12.9 11.8-14.3 % Platelet Count 260 140-450 10^3/uL Mean Platelet Volume 8.5 6.9-10.8 fL Neutrophils (%) (Auto) 61.0 37.0-80.0 % Lymphocytes (%) (Auto) 25.3 10.0-50.0 % Monocytes (%) (Auto) 12.1 H 0.0-12.0 % Eosinophils (%) (Auto) 1.2 0.0-7.0 % Basophils (%) (Auto) 0.4 0.0-2.0 % Neutrophils # (Auto) 4.6 1.6-8.6 10 ^3/uL Lymphocytes # (Auto) 1.9 0.4-5.4 10 ^3/uL Monocytes # (Auto) 0.9 0-1.3 10 ^3/uL Eosinophils # (Auto) 0.1 0-0.8 10 ^3/uL Basophils # (Auto) 0 0-0.2 10 ^3/uL Nucleated Red Blood Cells 0.0 % Sodium Level 140 136-145 mmol/L Potassium Level 3.4 L 3.5-5.1 mmol/L Chloride Level 110 H 98-107 mmol/L Carbon Dioxide Level 24 20-31 mmol/L Anion Gap 6 5-15 Blood Urea Nitrogen < 5 L 9-23 mg/dL Creatinine 0.62 0.550-1.02 mg/dL Glomerular Filtration Rate Calc 106 >90 mL/min BUN/Creatinine Ratio 8.1 L 10.0-20.0 Serum Glucose 95 74-106 mg/dL Calcium Level 9.2 8.7-10.4 mg/dL Total Bilirubin 1.0 0.2-1.0 mg/dL Aspartate Amino Transferase (AST) 43 H 13-40 U/L Alanine Aminotransferase (ALT) 22 7-40 U/L Alkaline Phosphatase 264 H 46-116 U/L Total Protein 7.3 5.7-8.2 g/dL Albumin 3.7 3.2-4.8 g/dL Troponin I High Sensitivity 4 </=34 ng/L Lactic Acid Level 1.3 0.4-2.0 mmol/L Lipase 174 H 12-53 U/L Urine Color Yellow Yellow Urine Clarity Turbid H Clear Urine pH 6.5 5.0-9.0 Urine Specific [place] 1.022 1.001-1.035 Urine Protein 1+ H Negative Urine Ketones Negative Negative Urine Blood Negative Negative /uL Urine Nitrite Negative Negative Urine Bilirubin 1+ H Negative Urine Urobilinogen 12 H Negative mg/dL Urine Leukocyte Esterase Negative Negative /uL Urine RBC 1 0 - 4 /hpf Urine Microscopic WBC 5 0-5 /HPF Urine Squamous Epithelial Cells Few <5 /hpf Urine Bacteria Few H None Seen /hpf Urine Hyaline Casts Few 0 - 2 /lpf Urine Mucus Few None Seen Urine Glucose Normal Normal mg/dL Imaging: CT abdomen pelvis IMPRESSION: 1. There is no acute process in the abdomen and pelvis. 2. Redemonstration of a fairly stable multiloculated cystic lesion in the spleen. 3. Chronic pancreatitis. Assessment: Acute on chronic pancreatitis Abdominal pain Plan: Discussed with Dr. Sidhu Monitor labs Recommend Creon [id number] Pain management per hospitalist We will continue to follow patient Thank you for this consult Date of Service: Aug 03, 2024 Billing Provider: GORAN BROCK Common Visit Codes: CONSULT ONLY Consultation Codes: [id number] CONSULT <60MIN GORAN BROCK Aug 03, 2024 11:48
--- NOTE | 2024-08-03 13:10 | DVHPN2 ---
Subjective 54-year-old female with a history of chronic pancreatitis came with abdominal pain and nausea and vomiting She is also complaining of headache for 2 weeks Changes from previous H/P or p: Changes Objective Vitals Vital Signs Date Time Temp Pulse Resp B/P (MAP) Pulse Ox O2 Delivery O2 Flow Rate FiO2 08/03/24 12:43 88 20 110/74 08/03/24 08:53 98.1 100 98.1 08/03/24 08:00 Room Air* 0 21 Intake/Output Intake and Output 08/03/24 07:00 Intake Total 1800 ml Balance 1800 ml Intake Oral 800 ml IV Total 1000 ml # Voids 1 # Bowel Movements 1 General Appearance: Alert, Oriented X3, Cooperative, No acute distress Lungs: Clear to auscultation, Normal air movement Cardiovascular: Regular rate, Normal S1, Normal S2 Abdomen: Normal bowel sounds, Soft, No tenderness Extremities: No edema Medications Current Medications Medications Dose Ordered Sig/Pina Route Start Time Stop Time Status Last Admin Dose Admin Pantoprazole Sodium 40 mg DAILY IV 08/03/24 10:00 08/03/24 08:47 40 MG Acetaminophen/ Hydrocodone Bitart 1 tab Q4HP PRN PO 08/02/24 19:30 08/03/24 05:20 1 TAB Ondansetron HCl 4 mg Q4HP PRN IV 08/02/24 19:30 08/03/24 00:31 4 MG Acetaminophen 650 mg Q6HP PRN PO 08/02/24 19:30 Ketorolac Tromethamine 15 mg Q6HPRN PRN IV 08/02/24 21:15 08/07/24 21:14 08/03/24 06:30 15 MG Laboratory Results Laboratory Tests 08/03/24 05:03 Chemistry Test 08/02/24 13:52 08/03/24 05:03 Albumin 4.2 g/dL (3.2-4.8) 3.7 g/dL (3.2-4.8) Calcium Level 9.7 mg/dL (8.7-10.4) 9.2 mg/dL (8.7-10.4) Total Protein 8.1 g/dL (5.7-8.2) 7.3 g/dL (5.7-8.2) Lipid panel Test 08/02/24 13:52 Lipase 174 U/L (12-53) H LFT Test 08/02/24 13:52 08/03/24 05:03 Alanine Aminotransferase (ALT) 27 U/L (7-40) 22 U/L (7-40) Alkaline Phosphatase 321 U/L (46-116) H 264 U/L (46-116) H Aspartate Amino Transferase (AST) 51 U/L (13-40) H 43 U/L (13-40) H Total Bilirubin 0.8 mg/dL (0.2-1.0) 1.0 mg/dL (0.2-1.0) Urinalysis Test 08/02/24 13:42 Urine Color Yellow (Yellow) Urine Clarity Turbid (Clear) H Urine pH 6.5 (5.0-9.0) Urine Specific [place] 1.022 (1.001-1.035) Urine Protein 1+ (Negative) H Urine Ketones Negative (Negative) Urine Blood Negative /uL (Negative) Urine Nitrite Negative (Negative) Urine Bilirubin 1+ (Negative) H Urine Urobilinogen 12 mg/dL (Negative) H Urine Leukocyte Esterase Negative /uL (Negative) Urine RBC 1 /hpf (0 - 4) Urine Microscopic WBC 5 /HPF (0-5) Urine Squamous Epithelial Cells Few /hpf (<5) Urine Bacteria Few /hpf (None Seen) H Urine Hyaline Casts Few /lpf (0 - 2) Urine Mucus Few (None Seen) Urine Glucose Normal mg/dL (Normal) Assessment/Plan Assessment/Plan Acute on chronic pancreatitis Headache Bipolar disorder GERD Mild transaminitis Narcotic dependence Hypokalemia Plan Clear liquid diet Dilaudid p.r.n. for the pain Get CT scan of the head no contrast Pancreatic enzymes with meals Zofran p.r.n. Replace potassium Full code Advance directives discussed for 15 minute Plan discussed with: Patient Date of Service: Aug 03, 2024 Billing Provider: SHAVONNE LIMON MD Common Visit Codes: [id number] INP/OBS CARE(HIGH) Secondary Visit Codes: [id number] CARE PLAN 30 MINUTES SHAVONNE LIOMN MD Aug 03, 2024 13:10
[2024-08-03] MEDS: POTASSIUM CHL 20 Meq TABLET PO ONE (14:13)
--- NOTE | 2024-08-03 15:53 | DVH ---
EXAM: CT HEAD WITHOUT CONTRAST HISTORY: headache COMPARISON: None TECHNIQUE: Axial images of the head were obtained and reformatted in coronal and sagittal planes. All CT scans at this medical facility are performed using dose modulation techniques as appropriate t o a performed exam including the following: Automated exposure control was utilized; adjustment of th e MA and/or KV according to patient size; and use of iterative reconstruction technique. CT Dose: CTDI volume is 49.33 mGy. Dose-length product is 692.34 mGy*cm FINDINGS: There is no evidence of acute intracranial hemorrhage, mass, mass effect midline shift. There is no h ydrocephalus or extra-axial fluid collection. Menjivar-white matter differentiation is maintained. The visualized paranasal sinuses and mastoid air cells are clear. The calvarium is intact. IMPRESSION: 1. No acute intracranial process. HS:Y
[2024-08-03] MEDS: HYDROmorphone HCL 2 MG/ML VL/or syr IV PRN (17:19)
[2024-08-03] MEDS: PANCRELIPASE PO SCH (21:17)
[2024-08-03] MEDS: QUEtiapine FUMARATE 100 MG TAB PO SCH (21:28)
[2024-08-04] VITALS (7 sets, daily range): BP systolic 104–132; BP diastolic 66–82; PULSE 79–94; RESP 16–20; TEMP 97.8–98.5; O2SAT 94–100
[2024-08-04 06:27] LABS: Calcium 9.6 mg/dL (8.7-10.4); Sodium 140 mmol/L (136-145)
[2024-08-04 06:28] LABS: Anion Gap 5 (5-15); Carbon Dioxide 22 mmol/L (20-31)
[2024-08-04 06:34] LABS: BUN/Creatinine Ratio 9.4 (10.0-20.0); Blood Urea Nitrogen < 5 mg/dL (9-23); Chloride 113 mmol/L (98-107); Glucose 153 mg/dL (74-106); Lipase 111 U/L (12-53); Magnesium 1.8 mg/dL (1.6-2.6); Potassium 3.5 mmol/L (3.5-5.1)
--- NOTE | 2024-08-04 15:01 | DVHPN2 ---
Subjective She is still having abdominal pain associated with nausea Lipase is better down 111 today She is still complaining of headache CT scan of the head was negative Changes from previous H/P or p: Changes Objective Vitals Vital Signs Date Time Temp Pulse Resp B/P (MAP) Pulse Ox O2 Delivery O2 Flow Rate FiO2 08/04/24 13:00 97.8 80 18 132/82 (99) 96 97.8 08/04/24 08:05 Room Air* 0 21 Intake/Output Intake and Output 08/04/24 07:00 Intake Total 900 ml Balance 900 ml Intake Oral 900 ml # Voids 8 General Appearance: Alert, Oriented X3, Cooperative, No acute distress Lungs: Clear to auscultation, Normal air movement Cardiovascular: Regular rate, Normal S1, Normal S2 Abdomen: Normal bowel sounds, Soft, No tenderness Extremities: No edema Medications Current Medications Medications Dose Ordered Sig/Pina Route Start Time Stop Time Status Last Admin Dose Admin Pantoprazole Sodium 40 mg DAILY IV 08/03/24 10:00 08/04/24 09:30 40 MG Acetaminophen/ Hydrocodone Bitart 1 tab Q4HP PRN PO 08/02/24 19:30 08/03/24 16:01 1 TAB Ondansetron HCl 4 mg Q4HP PRN IV 08/02/24 19:30 08/03/24 00:31 4 MG Acetaminophen 650 mg Q6HP PRN PO 08/02/24 19:30 Ketorolac Tromethamine 15 mg Q6HPRN PRN IV 08/02/24 21:15 08/07/24 21:14 Hold 08/03/24 06:30 15 MG Hydromorphone HCl 0.5 mg Q4HPRN PRN IV 08/03/24 13:15 08/04/24 11:17 0.5 MG Patient Own Medication 1 TIDWM PO 08/03/24 18:00 08/04/24 12:00 1 Quetiapine Fumarate 300 mg BID PO 08/03/24 22:00 08/04/24 09:30 300 MG Laboratory Results Laboratory Tests 08/03/24 05:03 08/04/24 05:14 Chemistry Test 08/04/24 05:14 Calcium Level 9.6 mg/dL (8.7-10.4) Magnesium Level 1.8 mg/dL (1.6-2.6) Lipid panel Test 08/04/24 05:14 Lipase 111 U/L (12-53) H Urinalysis Test 08/02/24 13:42 Urine Color Yellow (Yellow) Urine Clarity Turbid (Clear) H Urine pH 6.5 (5.0-9.0) Urine Specific [place] 1.022 (1.001-1.035) Urine Protein 1+ (Negative) H Urine Ketones Negative (Negative) Urine Blood Negative /uL (Negative) Urine Nitrite Negative (Negative) Urine Bilirubin 1+ (Negative) H Urine Urobilinogen 12 mg/dL (Negative) H Urine Leukocyte Esterase Negative /uL (Negative) Urine RBC 1 /hpf (0 - 4) Urine Microscopic WBC 5 /HPF (0-5) Urine Squamous Epithelial Cells Few /hpf (<5) Urine Bacteria Few /hpf (None Seen) H Urine Hyaline Casts Few /lpf (0 - 2) Urine Mucus Few (None Seen) Urine Glucose Normal mg/dL (Normal) Assessment/Plan Assessment/Plan Acute on chronic pancreatitis Headache Bipolar disorder GERD Mild transaminitis Narcotic dependence Hypokalemia Plan Clear liquid diet Dilaudid p.r.n. for the pain Get CT scan of the head no contrast Pancreatic enzymes with meals Zofran p.r.n. Replace potassium Full code Advance directives discussed for 15 minute 08/04/2024: Advance diet to soft mechanical Continue Dilaudid p.r.n. for the pain Continue Zofran p.r.n. Out of bed as tolerated Discharge planning for tomorrow if she tolerates the soft diet today Plan discussed with: Patient My Orders Orders - SHAVONNE LIMON MD Procedure Category Date Status Time Mechanical Soft Diet DIET 08/04/24 Transmitted Lunch Date of Service: Aug 04, 2024 Billing Provider: SHAVONNE LIMON MD Common Visit Codes: [id number] INP/OBS CARE(HIGH) SHAVONNE LIMON MD Aug 04, 2024 15:01
--- NOTE | 2024-08-04 17:01 | DVHPN2 ---
Progress Note - Dictate Date Seen: Aug 04, 2024 Medical Necessity Reason Pt with a Central, PICC or Fol: No Subjective No new complaints Abdominal pain is improving Lipase is down to 111 vital signs Vital Sign Date Time Temp Pulse Resp B/P (MAP) Pulse Ox O2 Delivery O2 Flow Rate FiO2 08/04/24 16:43 98.5 94 20 121/81 (94) 95 98.5 08/04/24 08:05 Room Air* 0 21 Total Intake and Output 08/03/24 08/03/24 08/04/24 15:00 23:00 07:00 Intake Total 300 ml 600 ml Balance 300 ml 600 ml medications Current Medications Medications Dose Ordered Sig/Pina Route Start Time Stop Time Status Last Admin Dose Admin Pantoprazole Sodium 40 mg DAILY IV 08/03/24 10:00 08/04/24 09:30 40 MG Acetaminophen/ Hydrocodone Bitart 1 tab Q4HP PRN PO 08/02/24 19:30 08/03/24 16:01 1 TAB Ondansetron HCl 4 mg Q4HP PRN IV 08/02/24 19:30 08/03/24 00:31 4 MG Acetaminophen 650 mg Q6HP PRN PO 08/02/24 19:30 Hydromorphone HCl 0.5 mg Q4HPRN PRN IV 08/03/24 13:15 08/04/24 15:28 0.5 MG Patient Own Medication 1 TIDWM PO 08/03/24 18:00 08/04/24 12:00 1 Quetiapine Fumarate 300 mg BID PO 08/03/24 22:00 08/04/24 09:30 300 MG objective General: NAD, AAOX3 Chest: lung bradshaw clear to auscultation Heart: RRR, no murmur Abdomen: Moderate epigastric tenderness to palpation, +BS laboratory and microbiology Laboratory Tests 08/04/24 05:14 08/03/24 05:03 Test 08/04/24 05:14 Range/Units Serum Glucose 153 H 74-106 mg/dL Problems(with codes): (1) Intractable abdominal pain (2) Nausea & vomiting (3) Tobacco abuse (4) Chronic pancreatitis (5) Anxiety Prognosis Plan Advance to full liquid diet Monitor labs Patient will take her on pancreatic [place] 81088 lipase units Patient was requesting to reach a take her on Seroquel because she was having a hard time sleeping and due to her anxiety Outpatient follow up with GI Services upon discharge Dietary Evaluation Review Comments: 1) Advance diet as medically feasible 2) Continue current plan of care Expected Outcomes/Goals: Pt will meet >75% estimated needs Fu 2-3 days Plan discussed with: Patient THERESA FIGUEROA MD Aug 04, 2024 17:01
[2024-08-05 01:00] VITALS: BP 144/72; PULSE 74; RESP 17; TEMP 98.4; O2SAT 96
[2024-08-05 07:38] LABS: Alanine Aminotransferase 31 U/L (7-40); Albumin 3.6 g/dL (3.2-4.8); Anion Gap 7 (5-15); Bilirubin, Total 0.7 mg/dL (0.2-1.0); Calcium 9.8 mg/dL (8.7-10.4); Carbon Dioxide 22 mmol/L (20-31); Glucose 93 mg/dL (74-106); Magnesium 1.9 mg/dL (1.6-2.6); Potassium 3.8 mmol/L (3.5-5.1); Sodium 140 mmol/L (136-145); Total Protein 7.2 g/dL (5.7-8.2)
[2024-08-05 07:42] LABS: Chloride 111 mmol/L (98-107)
[2024-08-05 07:43] LABS: Alkaline Phosphatase 269 U/L (46-116); Aspartate Aminotransferase 49 U/L (13-40); BUN/Creatinine Ratio 9.1 (10.0-20.0); Blood Urea Nitrogen < 5 mg/dL (9-23); Cholesterol 111 mg/dL (< 200); HDL Cholesterol 23 mg/dL (40-59); LDL Cholesterol 57 mg/dL (< 100); Lipase 157 U/L (12-53); Triglycerides 133 mg/dL (< 150)
[2024-08-05 09:00] VITALS: BP 119/70; PULSE 82; RESP 17; TEMP 97.9; O2SAT 100
--- NOTE | 2024-08-05 11:07 | DVHPN2 ---
Subjective She is complaining of more abdominal pain today Lipase went up to 157 Changes from previous H/P or p: Changes Objective Vitals Vital Signs Date Time Temp Pulse Resp B/P (MAP) Pulse Ox O2 Delivery O2 Flow Rate FiO2 08/05/24 09:00 97.9 82 17 119/70 (86) 100 97.9 08/04/24 20:00 Room Air* 0 21 Intake/Output Intake and Output 08/05/24 07:00 Intake Total 3550 ml Balance 3550 ml Intake Oral 3550 ml # Voids 5 # Bowel Movements 1 General Appearance: Alert, Oriented X3, Cooperative, No acute distress Lungs: Clear to auscultation, Normal air movement Cardiovascular: Regular rate, Normal S1, Normal S2 Abdomen: Normal bowel sounds, Soft, No tenderness Extremities: No edema Medications Current Medications Medications Dose Ordered Sig/Pina Route Start Time Stop Time Status Last Admin Dose Admin Pantoprazole Sodium 40 mg DAILY IV 08/03/24 10:00 08/05/24 09:25 40 MG Acetaminophen/ Hydrocodone Bitart 1 tab Q4HP PRN PO 08/02/24 19:30 08/03/24 16:01 1 TAB Ondansetron HCl 4 mg Q4HP PRN IV 08/02/24 19:30 08/03/24 00:31 4 MG Acetaminophen 650 mg Q6HP PRN PO 08/02/24 19:30 Hydromorphone HCl 0.5 mg Q4HPRN PRN IV 08/03/24 13:15 08/05/24 05:59 0.5 MG Patient Own Medication 1 TIDWM PO 08/03/24 18:00 08/05/24 09:25 1 Quetiapine Fumarate 300 mg BID PO 08/03/24 22:00 08/05/24 09:25 300 MG Laboratory Results Laboratory Tests 08/03/24 05:03 08/05/24 05:06 Chemistry Test 08/05/24 05:06 Albumin 3.6 g/dL (3.2-4.8) Calcium Level 9.8 mg/dL (8.7-10.4) Magnesium Level 1.9 mg/dL (1.6-2.6) Total Protein 7.2 g/dL (5.7-8.2) Lipid panel Test 08/05/24 05:06 Cholesterol Level 111 mg/dL (< 200) HDL Cholesterol 23 mg/dL (40-59) L Lipase 157 U/L (12-53) H Triglycerides Level 133 mg/dL (< 150) LFT Test 08/05/24 05:06 Alanine Aminotransferase (ALT) 31 U/L (7-40) Alkaline Phosphatase 269 U/L (46-116) H Aspartate Amino Transferase (AST) 49 U/L (13-40) H Total Bilirubin 0.7 mg/dL (0.2-1.0) Urinalysis Test 08/02/24 13:42 Urine Color Yellow (Yellow) Urine Clarity Turbid (Clear) H Urine pH 6.5 (5.0-9.0) Urine Specific [place] 1.022 (1.001-1.035) Urine Protein 1+ (Negative) H Urine Ketones Negative (Negative) Urine Blood Negative /uL (Negative) Urine Nitrite Negative (Negative) Urine Bilirubin 1+ (Negative) H Urine Urobilinogen 12 mg/dL (Negative) H Urine Leukocyte Esterase Negative /uL (Negative) Urine RBC 1 /hpf (0 - 4) Urine Microscopic WBC 5 /HPF (0-5) Urine Squamous Epithelial Cells Few /hpf (<5) Urine Bacteria Few /hpf (None Seen) H Urine Hyaline Casts Few /lpf (0 - 2) Urine Mucus Few (None Seen) Urine Glucose Normal mg/dL (Normal) Assessment/Plan Assessment/Plan Acute on chronic pancreatitis Headache Bipolar disorder GERD Mild transaminitis Narcotic dependence Hypokalemia Plan Clear liquid diet Dilaudid p.r.n. for the pain Get CT scan of the head no contrast Pancreatic enzymes with meals Zofran p.r.n. Replace potassium Full code Advance directives discussed for 15 minute 08/04/2024: Advance diet to soft mechanical Continue Dilaudid p.r.n. for the pain Continue Zofran p.r.n. Out of bed as tolerated Discharge planning for tomorrow if she tolerates the soft diet today 08/05/2024: Change diet to clear liquids again due to increased abdominal pain and elevated lipase Monitor the lipase Pain control as needed Monitor the electrolytes Plan discussed with: Patient My Orders Orders - SHAVONNE LIMON MD Procedure Category Date Status Time Mechanical Soft Diet DIET 08/04/24 Transmitted Lunch Date of Service: Aug 05, 2024 Billing Provider: SHAVONNE LIMON MD Common Visit Codes: [id number] INP/OBS CARE(HIGH) SHAVONNE LIMON MD Aug 05, 2024 11:07
[2024-08-05 13:00] VITALS: BP 121/76; PULSE 73; RESP 16; TEMP 97.8; O2SAT 99
[2024-08-05 13:47] LABS: Hepatitis B Surface Antigen Negative (Negative); Hepatitis C Antibody Negative (Negative)
[2024-08-05 17:00] VITALS: BP 133/85; PULSE 79; RESP 16; TEMP 97.5; O2SAT 96
--- NOTE | 2024-08-05 17:32 | DVHPN2 ---
Progress Note - Dictate Date Seen: Aug 05, 2024 Medical Necessity Reason Pt with a Central, PICC or Fol: No Subjective No new complaints Persistent abd pain Lipase went up to 157 vital signs Vital Sign Date Time Temp Pulse Resp B/P (MAP) Pulse Ox O2 Delivery O2 Flow Rate FiO2 08/05/24 14:48 74 16 114/75 08/05/24 13:00 97.8 99 97.8 08/05/24 08:05 Room Air* 0 21 Total Intake and Output 08/04/24 08/04/24 08/05/24 15:00 23:00 07:00 Intake Total 2700 ml 850 ml Balance 2700 ml 850 ml medications Current Medications Medications Dose Ordered Sig/Pina Route Start Time Stop Time Status Last Admin Dose Admin Pantoprazole Sodium 40 mg DAILY IV 08/03/24 10:00 08/05/24 09:25 40 MG Acetaminophen/ Hydrocodone Bitart 1 tab Q4HP PRN PO 08/02/24 19:30 08/03/24 16:01 1 TAB Ondansetron HCl 4 mg Q4HP PRN IV 08/02/24 19:30 08/03/24 00:31 4 MG Acetaminophen 650 mg Q6HP PRN PO 08/02/24 19:30 Hydromorphone HCl 0.5 mg Q4HPRN PRN IV 08/03/24 13:15 08/05/24 14:18 0.5 MG Patient Own Medication 1 TIDWM PO 08/03/24 18:00 08/05/24 13:05 1 Quetiapine Fumarate 300 mg BID PO 08/03/24 22:00 08/05/24 09:25 300 MG objective General: NAD, AAOX3 Chest: lung bradshaw clear to auscultation Heart: RRR, no murmur Abdomen: Moderate epigastric tenderness to palpation, +BS laboratory and microbiology Laboratory Tests 08/05/24 05:06 08/03/24 05:03 Test 08/05/24 05:06 Range/Units Serum Glucose 93 74-106 mg/dL Problems(with codes): (1) Acute abdominal pain (2) Nausea & vomiting (3) Recurrent acute pancreatitis (4) Chronic pancreatitis Prognosis PLAN Clear liquid diet Monitor labs Check GB USG Dietary Evaluation Review Comments: 1) Advance diet as medically feasible 2) Continue current plan of care Expected Outcomes/Goals: Pt will meet >75% estimated needs Fu 2-3 days Plan discussed with: Patient THERESA FIGUEROA MD Aug 05, 2024 17:32
[2024-08-05 19:54] VITALS: PULSE 87; RESP 18; O2SAT 98
--- NOTE | 2024-08-05 20:24 | DVH ---
INDICATION: Right upper quadrant pain and history of pancreatitis TECHNIQUE: Multiple real-time sonographic images of the abdomen were obtained. COMPARISON: None FINDINGS: The liver is homogenous in echogenicity. The liver measures 15.6 cm. No intrahepatic bilia ry ductal dilatation is noted. The gallbladder wall measures 0.19 cm and is unremarkable. No gallstones or sludge is seen. The co mmon duct measures 0.46 cm and is unremarkable. No pericholecystic fluid is noted. The right kidney measures 1.1 cm. No hydronephrosis. The pancreas is abnormal with multiple calcifications suggesting chronic pancreatitis. The visualized portions of the IVC and aorta are grossly unremarkable. IMPRESSION: 1. Liver measures 15.6 cm in length. 2. Large calcifications are noted scattered through the pancreas consistent with chronic pancreatitis . 3. Right kidney measures 11.1 cm long with no hydronephrosis. 4. Gallbladder appears normal with a negative ultrasound Nicholson's sign.
[2024-08-05 21:00] VITALS: BP 118/76; PULSE 85; RESP 19; TEMP 98.2; O2SAT 100
[2024-08-06] VITALS (8 sets, daily range): BP systolic 101–125; BP diastolic 64–88; PULSE 71–96; RESP 17–19; TEMP 97.7–98.5; O2SAT 91–97
[2024-08-06 06:15] LABS: Basophils # (auto) 0 10 ^3/uL (0-0.2); Basophils % (auto) 0.6 % (0.0-2.0); Eosinophils # (auto) 0.3 10 ^3/uL (0-0.8); Eosinophils % (auto) 4.4 % (0.0-7.0); Hematocrit 33.7 % (36.0-46.0); Hemoglobin 11.1 g/dL (12.2-16.2); Lymphocytes # (auto) 2.1 10 ^3/uL (0.4-5.4); Lymphocytes % (auto) 35.8 % (10.0-50.0); Mean Corpuscular Hemoglobin 32.5 pg (28.0-32.0); Mean Corpuscular Volume 98.7 fL (80.0-100.0); Monocytes # (auto) 0.8 10 ^3/uL (0-1.3); Monocytes % (auto) 13.4 % (0.0-12.0); Neutrophils # (auto) 2.7 10 ^3/uL (1.6-8.6); Neutrophils % (auto) 45.8 % (37.0-80.0); Nucleated Red Blood Cells % 0.2 %; Platelet Count (auto) 322 10^3/uL (140-450); Red Blood Cells 3.42 10^6/uL (4.0-5.20); Red Cell Distribution Width 12.8 % (11.8-14.3)
[2024-08-06 06:36] LABS: Alanine Aminotransferase 23 U/L (7-40); Albumin 3.5 g/dL (3.2-4.8); Anion Gap 6 (5-15); Aspartate Aminotransferase 33 U/L (13-40); Calcium 9.9 mg/dL (8.7-10.4); Carbon Dioxide 23 mmol/L (20-31); Glucose 105 mg/dL (74-106); Magnesium 1.9 mg/dL (1.6-2.6); Potassium 3.8 mmol/L (3.5-5.1); Sodium 141 mmol/L (136-145)
[2024-08-06 06:37] LABS: Alkaline Phosphatase 237 U/L (46-116); BUN/Creatinine Ratio 8.8 (10.0-20.0); Bilirubin, Total 0.5 mg/dL (0.2-1.0); Blood Urea Nitrogen < 5 mg/dL (9-23); Chloride 112 mmol/L (98-107); Lipase 196 U/L (12-53)
[2024-08-06] MEDS ORDERED: CLINIMIX PER PHARMACY 0 ML IV SCH (08:15)
[2024-08-06] MEDS ORDERED: DEXTROSE (50%) 50ML SYRG IV SCH (11:30)
[2024-08-06] MEDS: InsuLIN REG 1unit/0.01ml Soln (100units/ml) SC SCH (12:00)
[2024-08-06] MEDS: ACCU-CHEK COMFORT CURVE STRIP VI SCH (12:24)
--- NOTE | 2024-08-06 17:49 | DVHPN2 ---
Progress Note - Dictate Date Seen: Aug 06, 2024 Medical Necessity Reason Pt with a Central, PICC or Fol: No Subjective No new complaints Mild Persistent abd pain Lipase went up to 196 Patient recalls eating a heavy meal and sources made with wine prior to this episode vital signs Vital Sign Date Time Temp Pulse Resp B/P (MAP) Pulse Ox O2 Delivery O2 Flow Rate FiO2 08/06/24 17:00 97.7 96 19 101/82 (88) 91 97.7 08/06/24 08:00 Room Air* 0 21 Total Intake and Output 08/05/24 08/05/24 08/06/24 15:00 23:00 07:00 Intake Total 600 ml 2520 ml 2780 ml Balance 600 ml 2520 ml 2780 ml medications Current Medications Medications Dose Ordered Sig/Pina Route Start Time Stop Time Status Last Admin Dose Admin Pantoprazole Sodium 40 mg DAILY IV 08/03/24 10:00 08/06/24 12:06 40 MG Acetaminophen/ Hydrocodone Bitart 1 tab Q4HP PRN PO 08/02/24 19:30 08/05/24 20:17 1 TAB Ondansetron HCl 4 mg Q4HP PRN IV 08/02/24 19:30 08/06/24 16:15 4 MG Acetaminophen 650 mg Q6HP PRN PO 08/02/24 19:30 Hydromorphone HCl 0.5 mg Q4HPRN PRN IV 08/03/24 13:15 08/06/24 16:22 0.5 MG Patient Own Medication 1 TIDWM PO 08/03/24 18:00 08/05/24 13:05 1 Quetiapine Fumarate 300 mg BID PO 08/03/24 22:00 08/06/24 12:06 300 MG Amino Acids 0 ml @ 0 mls/hr PER PHARMACY IV 08/06/24 08:15 Diagnostic Test (Pha) 1 strip Q6HR 08/06/24 12:00 08/06/24 12:24 1 STRIP Insulin Human Regular FOLLOW SLIDING SCALE Q6HR SC 08/06/24 12:00 Dextrose 50 ml UD IV 08/06/24 11:30 Amino Acids/ Electrolytes/ Dextrose 1,000 ml @ 41 mls/hr DAILY@2200 IV 08/06/24 22:00 objective General: NAD, AAOX3 Chest: lung bradshaw clear to auscultation Heart: RRR, no murmur Abdomen: Moderate epigastric tenderness to palpation, +BS laboratory and microbiology Laboratory Tests 08/06/24 04:57 Test 08/06/24 04:57 Range/Units Serum Glucose 105 74-106 mg/dL Problems(with codes): (1) Recurrent acute pancreatitis (2) Nausea & vomiting (3) Acute abdominal pain (4) Tobacco abuse (5) Anxiety (6) GERD (gastroesophageal reflux disease) (7) Chronic pancreatitis Prognosis Plan Keep NPO except for ice chips and meds IV fluid hydration IV Clinimix Monitor labs Supportive care Continue Creon supplements [id number] lipase units Patient takes Seroquel for anxiety Dietary Evaluation Review Comments: 1) Advance diet as medically feasible 2) Continue current plan of care Expected Outcomes/Goals: Pt will meet >75% estimated needs Fu 2-3 days Plan discussed with: Patient, Other (Nurse) THERESA FIGUEROA MD Aug 06, 2024 17:49
[2024-08-06] MEDS: HYDROcodone-ACET 5/325MG TAB PO SCH (18:20)
--- NOTE | 2024-08-06 20:29 | DVHPN2 ---
Assessment/Plan Assessment/Plan progress note 54-year-old female with a history of chronic pancreatitis came with abdominal pain and nausea and vomiting seen today during rounds. per GI NPO with ice chips, bowel rest physical exam aox3 ambulating clear breath sounds s1 s2 rrr abdomen tender no le edema labs ekg imaging reviewed assessment and plan Acute on chronic pancreatitis Headache Bipolar disorder GERD Mild transaminitis Narcotic dependence Hypokalemia bowel rest GI consult appreciated Dilaudid p.r.n. for the pain Get CT scan of the head no contrast Pancreatic enzymes with meals Zofran p.r.n. Replace potassium start clinimix diet NPO clinimix dvt ppx hold Plan discussed with: Patient My Orders Orders - ARTUR JACKSON MD Procedure Category Date Status Time Hydrocodone-Acet PHA 08/06/24 In Process 5/325mg Tab ([place] 18:00 Date of Service: Aug 06, 2024 Billing Provider: ARTUR JACKSON MD Common Visit Codes: [id number] INP/OBS CARE(HIGH) ARTUR JACKSON MD Aug 06, 2024 20:28
[2024-08-06] MEDS: AMINO ACID INFUSION IN D10W 1,000 ML IV SCH (21:42)
[2024-08-07] VITALS (8 sets, daily range): BP systolic 102–123; BP diastolic 59–78; PULSE 66–92; RESP 16–18; TEMP 97.5–98.8; O2SAT 95–99
[2024-08-07 07:08] LABS: Alanine Aminotransferase 21 U/L (7-40); Albumin 3.7 g/dL (3.2-4.8); Anion Gap 8 (5-15); Aspartate Aminotransferase 28 U/L (13-40); Bilirubin, Total 0.5 mg/dL (0.2-1.0); Carbon Dioxide 23 mmol/L (20-31); Glucose 93 mg/dL (74-106); Magnesium 1.9 mg/dL (1.6-2.6); Phosphorus 3.9 mg/dL (2.4-5.1); Potassium 3.7 mmol/L (3.5-5.1); Sodium 140 mmol/L (136-145); Total Protein 7.4 g/dL (5.7-8.2)
[2024-08-07 07:17] LABS: Alkaline Phosphatase 218 U/L (46-116); BUN/Creatinine Ratio 8.5 (10.0-20.0); Blood Urea Nitrogen < 5 mg/dL (9-23); Chloride 109 mmol/L (98-107); Lipase 252 U/L (12-53)
--- NOTE | 2024-08-07 14:57 | DVHPN2 ---
Assessment/Plan Assessment/Plan progress note 54-year-old female with a history of chronic pancreatitis came with abdominal pain and nausea and vomiting seen today during rounds, on clinimix, still have ab pain, c/w bowel rest. escalate diet per GI physical exam aox3 ambulating clear breath sounds s1 s2 rrr abdomen tender no le edema labs ekg imaging reviewed assessment and plan Acute on chronic pancreatitis Headache Bipolar disorder GERD Mild transaminitis Narcotic dependence Hypokalemia bowel rest GI consult appreciated Dilaudid p.r.n. for the pain Get CT scan of the head no contrast Pancreatic enzymes with meals Zofran p.r.n. Replace potassium clinimix diet NPO clinimix dvt ppx hold Plan discussed with: Patient My Orders Orders - ARTUR JACKSON MD Procedure Category Date Status Time Hydrocodone-Acet PHA 08/06/24 In Process 5/325mg Tab ([place] 18:00 Date of Service: Aug 07, 2024 Billing Provider: ARTUR JACKSON MD Common Visit Codes: [id number] INP/OBS CARE(HIGH) ARTUR JACKSON MD Aug 07, 2024 14:57
[2024-08-08] VITALS (7 sets, daily range): BP systolic 106–119; BP diastolic 52–78; PULSE 66–82; RESP 15–18; TEMP 97.4–98.7; O2SAT 95–100
[2024-08-08 05:41] LABS: Basophils # (auto) 0 10 ^3/uL (0-0.2); Basophils % (auto) 0.5 % (0.0-2.0); Eosinophils # (auto) 0.3 10 ^3/uL (0-0.8); Eosinophils % (auto) 4.7 % (0.0-7.0); Mean Corpuscular Hemoglobin 33.3 pg (28.0-32.0); Mean Corpuscular Hgb Conc. 33.3 g/dL (32.0-36.0); Mean Corpuscular Volume 100.1 fL (80.0-100.0); Monocytes # (auto) 0.8 10 ^3/uL (0-1.3); Monocytes % (auto) 14.9 % (0.0-12.0); Neutrophils # (auto) 2.5 10 ^3/uL (1.6-8.6); Neutrophils % (auto) 44.9 % (37.0-80.0); Nucleated Red Blood Cells % 0.2 %; Platelet Count (auto) 328 10^3/uL (140-450); Red Cell Distribution Width 13.5 % (11.8-14.3); White Blood Cell 5.7 10^3/uL (4.4-10.8)
[2024-08-08 05:57] LABS: Alanine Aminotransferase 20 U/L (7-40); Albumin 3.6 g/dL (3.2-4.8); Anion Gap 7 (5-15); Aspartate Aminotransferase 25 U/L (13-40); BUN/Creatinine Ratio 8.9 (10.0-20.0); Calcium 9.8 mg/dL (8.7-10.4); Carbon Dioxide 22 mmol/L (20-31); Magnesium 1.7 mg/dL (1.6-2.6); Sodium 140 mmol/L (136-145)
[2024-08-08 05:58] LABS: Bilirubin, Total 0.3 mg/dL (0.2-1.0); Phosphorus 3.7 mg/dL (2.4-5.1)
[2024-08-08 05:59] LABS: Alkaline Phosphatase 209 U/L (46-116); Blood Urea Nitrogen 5 mg/dL (9-23); Chloride 111 mmol/L (98-107); Glucose 115 mg/dL (74-106); Lipase 201 U/L (12-53)
--- NOTE | 2024-08-08 18:38 | DVHPN2 ---
Assessment/Plan Assessment/Plan progress note 54-year-old female with a history of chronic pancreatitis came with abdominal pain and nausea and vomiting seen today during rounds. escalate to clear. pt has [facility] pain mgmt appointment friday and is motivated to try to tolerate oral by then physical exam aox3 ambulating clear breath sounds s1 s2 rrr abdomen tender no le edema labs ekg imaging reviewed assessment and plan Acute on chronic pancreatitis Headache Bipolar disorder GERD Mild transaminitis Narcotic dependence Hypokalemia bowel rest GI consult appreciated Dilaudid p.r.n. for the pain Get CT scan of the head no contrast Pancreatic enzymes with meals Zofran p.r.n. Replace potassium start clinimix diet clear liq dvt ppx hold Plan discussed with: Patient My Orders Orders - ARTUR JACKSON MD Procedure Category Date Status Time Clear Liq Diet DIET 08/08/24 Transmitted Dinner Date of Service: Aug 08, 2024 Billing Provider: ARTUR JACKSON MD Common Visit Codes: [id number] INP/OBS CARE(HIGH) ARTUR JACKSON MD Aug 08, 2024 18:38
[2024-08-09] VITALS (7 sets, daily range): BP systolic 105–115; BP diastolic 62–75; PULSE 60–86; RESP 16–19; TEMP 98–98.7; O2SAT 96–100
[2024-08-09 07:20] LABS: Alanine Aminotransferase 14 U/L (7-40); Albumin 3.6 g/dL (3.2-4.8); Anion Gap 8 (5-15); Aspartate Aminotransferase 20 U/L (13-40); Bilirubin, Total 0.4 mg/dL (0.2-1.0); Calcium 10.1 mg/dL (8.7-10.4); Carbon Dioxide 22 mmol/L (20-31); Glucose 99 mg/dL (74-106); Magnesium 1.8 mg/dL (1.6-2.6); Phosphorus 3.6 mg/dL (2.4-5.1); Sodium 140 mmol/L (136-145); Total Protein 7.4 g/dL (5.7-8.2)
[2024-08-09 07:22] LABS: Alkaline Phosphatase 188 U/L (46-116); BUN/Creatinine Ratio 8.6 (10.0-20.0); Blood Urea Nitrogen < 5 mg/dL (9-23); Chloride 110 mmol/L (98-107); Potassium 3.4 mmol/L (3.5-5.1)
[2024-08-09] MEDS: POTASSIUM PHOSPHATE 22 MEQ in SODIUM CHL 0.9% 100 ML IV ONE (14:55)
--- NOTE | 2024-08-09 20:45 | DVHDS2 ---
Discharge Summary Date of Admission Aug 02, 2024 at 19:24 Date of Discharge: Aug 09, 2024 Labs/Diagnostic Data: Laboratory Results Test 08/09/24 17:10 08/09/24 05:50 08/08/24 04:34 08/07/24 05:38 POC Glucose 100 mg/dl (70-106) Sodium Level 140 mmol/L (136-145) Potassium Level 3.4 mmol/L (3.5-5.1) Chloride Level 110 mmol/L (98-107) Carbon Dioxide Level 22 mmol/L (20-31) Anion Gap 8 (5-15) Blood Urea Nitrogen < 5 mg/dL (9-23) Creatinine 0.58 mg/dL (0.550-1.02) Glomerular Filtration Rate Calc 108 mL/min (>90) BUN/Creatinine Ratio 8.6 (10.0-20.0) Serum Glucose 99 mg/dL (74-106) Calcium Level 10.1 mg/dL (8.7-10.4) Phosphorus Level 3.6 mg/dL (2.4-5.1) Magnesium Level 1.8 mg/dL (1.6-2.6) Total Bilirubin 0.4 mg/dL (0.2-1.0) Aspartate Amino Transferase (AST) 20 U/L (13-40) Alanine Aminotransferase (ALT) 14 U/L (7-40) Alkaline Phosphatase 188 U/L (46-116) Total Protein 7.4 g/dL (5.7-8.2) Albumin 3.6 g/dL (3.2-4.8) White Blood Count 5.7 10^3/uL (4.4-10.8) Red Blood Count 3.60 10^6/uL (4.0-5.20) Hemoglobin 12.0 g/dL (12.2-16.2) Hematocrit 36.0 % (36.0-46.0) Mean Corpuscular Volume 100.1 fL (80.0-100.0) Mean Corpuscular Hemoglobin 33.3 pg (28.0-32.0) Mean Corpuscular Hemoglobin Concent 33.3 g/dL (32.0-36.0) Red Cell Distribution Width 13.5 % (11.8-14.3) Platelet Count 328 10^3/uL (140-450) Mean Platelet Volume 7.8 fL (6.9-10.8) Neutrophils (%) (Auto) 44.9 % (37.0-80.0) Lymphocytes (%) (Auto) 35.0 % (10.0-50.0) Monocytes (%) (Auto) 14.9 % (0.0-12.0) Eosinophils (%) (Auto) 4.7 % (0.0-7.0) Basophils (%) (Auto) 0.5 % (0.0-2.0) Neutrophils # (Auto) 2.5 10 ^3/uL (1.6-8.6) Lymphocytes # (Auto) 2.0 10 ^3/uL (0.4-5.4) Monocytes # (Auto) 0.8 10 ^3/uL (0-1.3) Eosinophils # (Auto) 0.3 10 ^3/uL (0-0.8) Basophils # (Auto) 0 10 ^3/uL (0-0.2) Nucleated Red Blood Cells 0.2 % Lipase 201 U/L (12-53) CA 19-9 Antigen 89 U/mL (0-35) Test 08/05/24 05:06 08/03/24 05:03 08/02/24 14:37 08/02/24 13:52 Triglycerides Level 133 mg/dL (< 150) Cholesterol Level 111 mg/dL (< 200) LDL Cholesterol 57 mg/dL (< 100) HDL Cholesterol 23 mg/dL (40-59) Hepatitis B Surface Antigen Negative (Negative) Hepatitis C Antibody Negative (Negative) Troponin I High Sensitivity 4 ng/L (</=34) Lactic Acid Level 1.3 mmol/L (0.4-2.0) Test 08/02/24 13:42 Urine Color Yellow (Yellow) Urine Clarity Turbid (Clear) Urine pH 6.5 (5.0-9.0) Urine Specific [place] 1.022 (1.001-1.035) Urine Protein 1+ (Negative) Urine Ketones Negative (Negative) Urine Blood Negative /uL (Negative) Urine Nitrite Negative (Negative) Urine Bilirubin 1+ (Negative) Urine Urobilinogen 12 mg/dL (Negative) Urine Leukocyte Esterase Negative /uL (Negative) Urine RBC 1 /hpf (0 - 4) Urine Microscopic WBC 5 /HPF (0-5) Urine Squamous Epithelial Cells Few /hpf (<5) Urine Bacteria Few /hpf (None Seen) Urine Hyaline Casts Few /lpf (0 - 2) Urine Mucus Few (None Seen) Urine Glucose Normal mg/dL (Normal) Other Laboratory Tests 08/09/24 05:50 08/08/24 04:34 Brief Hx & Hospital Course: 54-year-old female with a history of chronic pancreatitis came with abdominal pain and nausea and vomiting. on the course of hospitalization, paitnet tried on clear liquid, escalated, no improvement in abdominal pain, placed NPO and started on clear liquid after. Patient has pain managmenet appointment tomorrow, if tolerating diet can be dc home to follow up Condition at Discharge: Fair Final Diagnosis/Problems List Acute on chronic pancreatitis Headache Bipolar disorder GERD Mild transaminitis Narcotic dependence Hypokalemia Discharge Disposition: Home Discharge Instruct/Medications Diet: See Comment Diet comment: full liquid Activity: See Comment Follow Up/Referral: pain management Discharge Statement: "Patient was advised to return to the ER or call 911 if any headaches, dizziness, shortness of breath, chest pain, abdominal pain, bleeding, fevers, or worsening of medical condition. Patient was counseled about treatment plan, medications, possible side effects, patientverbalized understanding. All questions were answered to the best of my ability. This discharge took greater then 30 minutes in planning, reviewing documentation, counseling the patient, and discussing with other team members." ASSESSMENT ASSESSMENT Assessment acute on chronic pancreatitis Date of Service: Aug 09, 2024 Billing Provider: ARTUR JACKSON MD Common Visit Codes: [id number]/OBS DISCH DAY >30min ARTUR JACKSON MD Aug 09, 2024 20:45
[2024-08-09] MEDS: SODIUM CHL 0.9% 100 ML IV SCH (21:26)
[2024-08-09] MEDS: POTASSIUM CHL 20MEQ/50ML 50 ML IV ONE (21:26)
--- NOTE | 2024-08-09 22:22 | DVHPN2 ---
Progress Note - Dictate Date Seen: Aug 09, 2024 Medical Necessity Reason Pt with a Central, PICC or Fol: No Subjective No new complaints Patient feels better Lipase level is trending down Patient recalls eating a heavy meal and sources made with wine prior to this episode vital signs Vital Sign Date Time Temp Pulse Resp B/P (MAP) Pulse Ox O2 Delivery O2 Flow Rate FiO2 08/09/24 21:50 61 19 147/79 08/09/24 21:00 98.1 96 98.1 08/09/24 08:00 Room Air* 0 21 Total Intake and Output 08/08/24 08/08/24 08/09/24 15:00 23:00 07:00 Intake Total 840 ml 200 ml Balance 840 ml 200 ml medications Current Medications Medications Dose Ordered Sig/Pina Route Start Time Stop Time Status Last Admin Dose Admin Pantoprazole Sodium 40 mg DAILY IV 08/03/24 10:00 08/09/24 09:16 40 MG Ondansetron HCl 4 mg Q4HP PRN IV 08/02/24 19:30 08/07/24 18:33 4 MG Acetaminophen 650 mg Q6HP PRN PO 08/02/24 19:30 Hydromorphone HCl 0.5 mg Q4HPRN PRN IV 08/03/24 13:15 08/09/24 21:50 0.5 MG Patient Own Medication 1 TIDWM PO 08/03/24 18:00 08/09/24 17:45 1 Quetiapine Fumarate 300 mg BID PO 08/03/24 22:00 08/09/24 21:25 300 MG Amino Acids 0 ml @ 0 mls/hr PER PHARMACY IV 08/06/24 08:15 Diagnostic Test (Pha) 1 strip Q6HR 08/06/24 12:00 08/09/24 18:23 1 STRIP Insulin Human Regular FOLLOW SLIDING SCALE Q6HR SC 08/06/24 12:00 Dextrose 50 ml UD IV 08/06/24 11:30 Amino Acids/ Electrolytes/ Dextrose 1,000 ml @ 41 mls/hr DAILY@2200 IV 08/06/24 22:00 08/07/24 21:59 41 MLS/HR Acetaminophen/ Hydrocodone Bitart 1 tab Q4HR PO 08/06/24 18:00 08/08/24 06:24 1 TAB Sodium Chloride 100 ml @ 50 mls/hr Q2H IV 08/09/24 21:15 08/09/24 23:14 08/09/24 21:26 50 MLS/HR objective General: NAD, AAOX3 Chest: lung bradshaw clear to auscultation Heart: RRR, no murmur Abdomen: Moderate epigastric tenderness to palpation, +BS laboratory and microbiology Laboratory Tests 08/09/24 05:50 08/08/24 04:34 Test 08/09/24 05:50 Range/Units Serum Glucose 99 74-106 mg/dL Problems(with codes): (1) Recurrent acute pancreatitis (2) Intractable abdominal pain (3) Tobacco abuse (4) Anxiety (5) GERD (gastroesophageal reflux disease) (6) Chronic pancreatitis Prognosis Plan Low-fat diet , full liquid diet for now Continue to monitor labs, lipase today pending Lipase level was trending down CA 19 nine mildly elevated to 89 Consider outpatient endoscopic ultrasound Discharge planning is in progress Outpatient follow up with me in 2-4 weeks Maintained on Creon supplements Dietary Evaluation Review Comments: 1) Advance diet as medically feasible 2) Continue current plan of care Expected Outcomes/Goals: Pt will meet >75% estimated needs Fu 2-3 days Plan discussed with: Patient, Other (Nurse) THERESA FIGUEROA MD Aug 09, 2024 22:22
[2024-08-10 05:00] VITALS: BP 151/86; PULSE 77; RESP 20; O2SAT 100
[2024-08-10 08:00] VITALS: PULSE 81; RESP 17; O2SAT 97
[2024-08-10 08:24] LABS: Alanine Aminotransferase 15 U/L (7-40); Anion Gap 5 (5-15); Calcium 10.2 mg/dL (8.7-10.4); Carbon Dioxide 22 mmol/L (20-31); Glucose 98 mg/dL (74-106); Magnesium 1.8 mg/dL (1.6-2.6); Potassium 3.9 mmol/L (3.5-5.1); Sodium 141 mmol/L (136-145); Total Protein 7.1 g/dL (5.7-8.2)
[2024-08-10 08:25] LABS: Albumin 3.7 g/dL (3.2-4.8); Aspartate Aminotransferase 21 U/L (13-40)
[2024-08-10 08:26] LABS: Alkaline Phosphatase 193 U/L (46-116); BUN/Creatinine Ratio 8.3 (10.0-20.0); Bilirubin, Total 0.3 mg/dL (0.2-1.0); Blood Urea Nitrogen < 5 mg/dL (9-23); Chloride 114 mmol/L (98-107); Phosphorus 3.5 mg/dL (2.4-5.1)
[2024-08-10 09:00] VITALS: BP 114/71; PULSE 81; RESP 17; TEMP 98.2; O2SAT 97
[2024-08-10 11:12] VITALS: BP 114/71; PULSE 81; RESP 17; TEMP 98.2; O2SAT 97
[2024-08-10] MEDS: HYDROmorphone HCL 2 MG/ML VL/or syr IV ONE (11:24)
[2024-08-10 11:54] VITALS: BP 109/80; PULSE 77; RESP 19
--- NOTE | 2024-08-10 22:58 | DVHPN2 ---
Assessment/Plan Assessment/Plan progress note 54-year-old female with a history of chronic pancreatitis came with abdominal pain and nausea and vomiting seen today during rounds. discharge yesterday, delayed for K repletion Plan discussed with: Patient Date of Service: Aug 10, 2024 Billing Provider: ARTUR JACKSON MD Common Visit Codes: [id number] DISCH DAY >30min ARTUR JACKSON MD Aug 10, 2024 22:58
== END 2024-08-10 12:00 | disposition home or self-care (01) | DRG 282 ==
LOC: ER 13:25 → OVERFLOW 19:24 → WEST WING 23:00
PROVIDERS: ADMIT Student in an Organized Health Care Education/Training Program; ATTEND Student in an Organized Health Care Education/Training Program
DX: K85.90 Acute pancreatitis without necrosis or infection, unspecified (principal); E87.6 Hypokalemia; F11.20 Opioid dependence, uncomplicated; R74.01 Elevation of levels of liver transaminase levels; F31.9 Bipolar disorder, unspecified; K21.9 Gastro-esophageal reflux disease without esophagitis; J45.909 Unspecified asthma, uncomplicated; M41.9 Scoliosis, unspecified; Z88.1 Allergy status to other antibiotic agents; Z88.5 Allergy status to narcotic agent; Z98.51 Tubal ligation status; Z79.899 Other long term (current) drug therapy; Z79.51 Long term (current) use of inhaled steroids; Z88.8 Allergy status to other drugs, medicaments and biological substances; Z91.018 Allergy to other foods; Z98.891 History of uterine scar from previous surgery; Z90.49 Acquired absence of other specified parts of digestive tract
CPT/HCPCS: 36415; 70450; 74176; 76705; 80048; 80053; 80061; 81001; 82962; 83605; 83690; 83735; 84100; 84484; 85025; 86301; 86803; 87340; 96361; 96374; 96375; 99291; G0378; J1885; J2405; J2470